=== PATIENT | male | born 1970 | race Caucasian/White ===

== ENCOUNTER 2023-04-28 15:12 | Outpatient (REF) | payer OTHER, SELFPAY | END 2023-04-28 15:13 | disposition home or self-care (01) | LOC: LBN 15:12 | PROVIDERS: PCP Family Medicine; Visit Provider Podiatrist | DX: E11.621 Type 2 diabetes mellitus with foot ulcer (principal); L97.519 Non-pressure chronic ulcer of other part of right foot with unspecified severity | CPT/HCPCS: 87077; 87070; 87075; 87186; 87205 ==

== ENCOUNTER → 2023-05-09 00:29 | Outpatient (CLI) | payer OTHER, SELFPAY ==
--- NOTE | 2023-05-09 07:30 | DI.RAD_ITS ---
Exam(s) XR FOOT RT COMPLETE XR HEEL RT OS CALCIS EXAM: XR FOOT RT COMPLETE and XR heel RT os calcis CLINICAL HISTORY: diabetic foot ulcer,l97.509. TECHNIQUE: 2D digital imaging was performed of the right heel and foot. Five images were obtained. AP, oblique and lateral views were obtained. COMPARISON: No priors for comparison. FINDINGS: BONES: No acute fracture is present. No bony destructive lesion is seen. There are calcaneal spurs pr esent. Dystrophic calcifications are seen on the plantar surface of the foot. JOINTS: No dislocation present. There are degenerative changes seen in the foot particularly at the t arsometatarsal joints. SOFT TISSUE: Normal. IMPRESSION: No radiographic evidence to suggest osteomyelitis. DATA REPOSITORY: RADIATION DOSE DELIVERED:
--- NOTE | 2023-05-09 07:30 | DI.CT_ITS ---
Exam(s) CT ABD AORTA CTA W RUNOFF EXAM: CT ABD AORTA CTA W RUNOFF CLINICAL HISTORY: Ischemic ulcer right heel,I73.9,pvd. TECHNIQUE: Imaging Protocol: Axial CT angiography was performed with multi-slice acquisition and mu lti-planar and/or 3D reconstructions. CONTRAST MATERIAL: Intravenous: Omnipaque 350 Contrast volume:150 mL Oral: No COMPARISON: No exams were available for comparison FINDINGS: Vascular Structures: Abdomen and pelvis: Celiac Jasper/SMA: No evidence of occlusion or significant stenosis. Renal Arteries: No evidence of occlusion or significant stenosis. Aorta: No aneurysm, occlusion or significant stenosis. Atherosclerosis. No evidence of dissection. Iliac Arteries: There is atherosclerosis of the left common iliac artery with narrowing less than 50 percent. There is atherosclerosis of the right common iliac artery with with less than 50 percent n arrowing. No occlusion or stenosis. The left external iliac artery shows no evidence of occlusion, stenosis or dissection. There is atherosclerosis of the right external iliac artery with less than 5 0 percent stenosis. There is atherosclerosis of the proximal right internal iliac artery with occlus ion 3 cm from the origin. There is atherosclerosis of the proximal left internal iliac artery with s evere stenosis proximally. There is reconstitution distally. Lower extremities: Right: Common Femoral: No evidence of occlusion or significant stenosis. Femoral: No evidence of occlusion or significant stenosis. Mild atherosclerosis. Deep Femoral Artery: No evidence of occlusion or significant stenosis. Mild atherosclerosis. Popliteal: No evidence of occlusion or significant stenosis. Infrapopliteal arteries: No evidence of occlusion or significant stenosis. Left: Common Femoral: No evidence of occlusion or significant stenosis. Femoral: No evidence of occlusion or significant stenosis. Mild atherosclerosis. Deep femoral artery: No evidence of occlusion or significant stenosis. Mild atherosclerosis. Popliteal: No evidence ofocclusion or significant stenosis. Knee Trifurcation: No evidence of occlusion or significant stenosis. Anterior tibial: No evidence of occlusion or significant stenosis. Posterior Tibial: No evidence of occlusion or significant stenosis. Peroneal: There is atherosclerosis of the peroneal artery with occlusion distal to the trifurcation. Soft Tissues: Lung bases: There are filling defects in vascular branches in the lower lobes bilaterally medially nascimento spicious for pulmonary emboli. Liver: Normal density. No measurable mass. Gallbladder and biliary tract: Cholelithiasis. No biliary ductal dilatation. Pancreas: Normal density, no abnormal calcifications or inflammatory process. There is a 1.9 x 2.2 cm cyst at the tail of the pancreas. Spleen: Normal. Kidneys: Normal size, contour and axis. No radiodense stones or obstructive uropathy. No masses seen. Adrenal glands: No masses seen. Bladder: Symmetric distention, no gross wall thickening. Bowel: No obstruction or bowel wall thickening. The appendix is unremarkable. Peritoneal cavity: No ascites, collection or mesenteric inflammatory response. No free air. Bones: Within normal limits for the patient's age. IMPRESSION: 1. Atherosclerosis. 2. 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 3. 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 4. Filling defects seen in vessels in the lower lobes of the lungs consistent with pulmonary emboli. A pulmonary embolus CT scan of the chest is requested for further evaluation. 5. 1.9 x 2.2 cm cyst in the tail of the pancreas. MRI is recommended for further evaluation. 6. Findings were discussed with Dr. Raymond Maharaj of the emergency department at 5:20 p.m. on 3. RADIATION DOSE DELIVERED: Total DLP Total DLP DATA REPOSITORY: All CT scans at this facility are submitted to the National Radiology Data Registry (NRDR) Dose Index Registry (DIR) with the [employer] ([employer]). RADIATION OPTIMIZATION: All CT scans at this facility use at least one of these dose optimization te chniques: automated exposure control; mA and/or kV adjustment per patient size (includes targeted exa ms where dose is matched to clinical indication); or iterative reconstruction.
--- NOTE | 2023-05-09 10:42 | DI.RAD_ITS ---
Exam(s) XR HEEL LT OS CALCIS EXAM: XR HEEL LT OS CALCIS CLINICAL HISTORY: pain lt foot,m79.672. TECHNIQUE: 2D digital imaging was performed. Two images were obtained. COMPARISON: No exams were available for comparison FINDINGS: BONES: No acute fracture is present. No bony destructive lesion is seen. There is an enthesophyte at the Achilles insertion site. There is a plantar calcaneal spur. Dystrophic calcifications are seen in the soft tissues on the plantar surface of the foot. JOINTS: No dislocation present. Degenerative changes are seen in the ankle and foot particularly at the tarsometatarsal joints. SOFT TISSUE: Normal. IMPRESSION: No radiographic evidence to suggest osteomyelitis. DATA REPOSITORY: RADIATION DOSE DELIVERED:
[2023-05-09] MEDS: Normal Saline - Diluent 50 ML VIAL 100 ML IJ (11:27)
[2023-05-09] MEDS: Omnipaque 350 MG/ML 500 ML BTL-Imaging package 150 ML IJ (11:28)
[2023-05-09] MEDS: Normal Saline Flush 10 ML SYR IVP (11:29)
--- NOTE | 2023-05-09 17:30 | ED.FU.B_ITS ---
Follow Up Plan: I received a call from Dr. Lee regarding an outpatient study on Mr. Renae that had been ordered by his prep cook. There is concern for possible pulmonary embolus on CTA aorta with runoff. Recommend patient have urgent CTA of chest to evaluate for same. I reached out and spoke directly to Mr. Renae this evening. I told him of the possible findings and the concern and recommended he go to the emergency department to be evaluated whether it was here at [facility] or since he lives in [facility]. If he goes to [facility] I have told him that he may have the provider there called down here to speak to me if there is any questions.
== END ==
PROVIDERS: PCP Family Medicine; Visit Provider Podiatrist
DX: I73.9 Peripheral vascular disease, unspecified (principal); E11.621 Type 2 diabetes mellitus with foot ulcer; M79.672 Pain in left foot
CPT/HCPCS: 75635; 73630; 73650

== ENCOUNTER 2023-05-28 14:52 | Outpatient (REF) | payer OTHER, SELFPAY | END 2023-05-28 14:53 | disposition home or self-care (01) | LOC: LBN 14:52 | PROVIDERS: PCP Family Medicine; Visit Provider Podiatrist | DX: L97.512 Non-pressure chronic ulcer of other part of right foot with fat layer exposed (principal); M86.9 Osteomyelitis, unspecified | CPT/HCPCS: 87070; 87075; 87205 ==

== ENCOUNTER 2023-07-08 14:05 | Outpatient (REF) | payer OTHER, SELFPAY | END 2023-07-08 14:06 | disposition home or self-care (01) | LOC: LBN 14:05 | PROVIDERS: PCP Family Medicine; Visit Provider Podiatrist | DX: L97.519 Non-pressure chronic ulcer of other part of right foot with unspecified severity (principal) | CPT/HCPCS: 87070; 87075; 87205 ==

== ENCOUNTER → 2023-07-29 03:57 | Outpatient (CLI) | payer OTHER, SELFPAY ==
--- NOTE | 2023-07-29 07:00 | DI.RAD_ITS ---
Exam(s) XR FOOT RT COMPLETE EXAM: XR FOOT RT COMPLETE CLINICAL HISTORY: osteomyelitis of foot,m86.9,ulcer,L97.519,L97.512. TECHNIQUE: 2D digital imaging was performed. COMPARISON: CR XR FOOT RT COMPLETE from 05/09/2023 FINDINGS: Compared to 05/09/2023 there is now bandage material overlying a ulcer on the posterior aspect of the heel. Enthesophyte on the posterior aspect of the calcaneus sub adjacent to the ulcer is again note d as is a calcific density within the distal Achilles tendon just above this level. There is no obvi ous radiographic evidence of osteomyelitis realizing that these are not dedicated heel films (dedicat ed heel images contain a Marco axial view which is important for determining osteomyelitis). There i s prominent calcification in the plantar fascia again noted. IMPRESSION: Presence of heel ulcer. No obvious radiographic evidence of osteomyelitis realized limitations of th is conventional 3 view plain film study. Prominent calcification noted in the plantar fascia. Prominent posterior calcaneus enthesophyte. DATA REPOSITORY: RADIATION DOSE DELIVERED:
--- NOTE | 2023-07-29 07:00 | DI.MRI_ITS ---
Exam(s) MR LOWER JOINT RT WO/W EXAM: MR LOWER JOINT RT WO/W CLINICAL HISTORY: Osteomyelitis Calcaneus,lat aspect R ft, M86.9 TECHNIQUE: Multiplanar multisequence MRI was performed without intravenous contrast. COMPARISON: MR MR FOOT RT W/WO CONTRAST from 04/08/2023 CR XR HEEL RT OS CALCIS from 07/29/2023 CR XR FOOT RT COMPLETE from 07/29/2023 FINDINGS: SKIN: There is a bandage over what appears to be a skin ulcer on the posterolateral aspect of the sally l region. There is subcutaneous edema over this region.. BONES/JOINTS: There is again noted a relatively narrow band of subcortical intraosseous signal abnorm ality in the posterolateral aspect of the calcaneus with increased signal on STIR sequence and intrao sseous enhancement but no cortical breakthrough nor confluent hypointense T1 signal at this level. T here is insertional tendinitis signal within the Achilles tendon at this level. No high-grade tear o f the Achilles tendon. No significant fluid in the retrocalcaneal bursa. The more anterior aspect of the calcaneus appears unremarkable. Sub talar and tibiotalar joints appear unremarkable. No abno rmal signal in the talar dome and tibial plafond and malleoli. There is no evidence of para-articul ar ganglion.There is no evidence of osseous tarsal coalition. LIGAMENTS: Anterior talofibular ligament is attenuated. No prominent signal abnormality evident in th e anterolateral gutter. Posterior talofibular ligament is intact. Calcaneal fibular ligament is inta ct. The deltoid ligament is intact. Syndesmotic ligaments appear intact. SINUS TARSI: There is no loss of the normal fat signal in this space. Interosseous ligament is intac t. There is no evidence of sinus tarsi ganglion cyst. MUSCULOTENDINOUS STRUCTURES: Achilles tendon: Distal tendon calcifications and insertional signal abnormality. No high-grade tear . There is a prominent enthesophyte on the posterior calcaneus at the Achilles insertion site. It ag ain exhibits signal abnormality consistent with marrow edema. Plantar fascia: There are multiple calcific densities within the plantar fascia a as seen on recent p will films. The largest of these measures approximately 1.8 x 0.8 by 1.0 cm. Mild signal abnormalit y in the plantar fascia consistent with plantar fasciitis. Also mild signal abnormality in the small inferior calcaneal spur evident at this level. Anterior Extensor tendons: Unremarkable. Medial Tendons: Posterior Tibialis: Unremarkable. No tear or tenosynovitis evident. Flexor Digitorum longus: Unremarkable. No tear or tenosynovitis evident. Flexor Hallicus longus: Unremarkable. No tear or tenosynovitis evident. Lateral Tendons: Peroneus longus: There is some increased signal in the distal tendon on the undersurface of the foot proximal to its insertion on inferior aspect of the medial cuneiform, but no full-thickness tear. Peroneus brevis:Unremarkable. No tear nor tenosynovitis evident. SOFT TISSUES: Unremarkable. OTHER FINDINGS: None. IMPRESSION: 1. Minimal if any significant change when compared to the prior outside MRI scan of 04/08/2023. There is again noted subcortical marrow edema and intraosseous enhancement in the posterolateral calcaneus subjacent to the region of the skin ulcer, without progression when compared to 04/08/2023. Lack of change may imply treated/healing/stable osteomyelitis. Other consideration would be for osseo us stress action related to the adjacent Achilles findings. 2. 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 3. Chronic calcifications in the plantar fascia. Mild plantar fasciitis signal. 4. Other findings as above. DATA REPOSITORY:
--- NOTE | 2023-07-29 07:00 | DI.RAD_ITS ---
Exam(s) XR HEEL RT OS CALCIS EXAM: XR HEEL RT OS CALCIS CLINICAL HISTORY: osteomyelitis rt heel,m86.9,chronic ulcer,L97.519,L97.512. TECHNIQUE: 2D digital imaging was performed. COMPARISON: CR XR HEEL LT OS CALCIS from 05/09/2023 FINDINGS: Two views-lateral and Marco axial views of the calcaneus There is a skin ulcer over the posterior aspect of the calcaneus. There is a prominent enthesophyte at this level at the Achilles tendon insertion site as well as 2 calcific densities within the insert ional aspect of the Achilles tendon. There does not appear to be obvious osteomyelitis in this enthe sophyte. There is no obvious osteomyelitis seen on the axial view. Heavy calcification is noted in the plantar fascia. There is moderate size inferior calcaneal spur n oted. Bone density normal. No osseous lesions. IMPRESSION: Posterior DP heel ulcer. No obvious radiographic evidence of osteomyelitis. Other findings as above. DATA REPOSITORY: RADIATION DOSE DELIVERED:
[2023-07-29] MEDS: Normal Saline Flush 10 ML SYR IVP (09:23)
[2023-07-29] MEDS: Gadoterate meglumine 20 ML SYRINGE 14 ML IVP (09:24)
--- NOTE | 2023-07-29 11:16 | DI.VRAD_ITS ---
PROCEDURE INFORMATION: Exam: MR Right Lower Extremity Joint Without and With Contrast; Ankle Exam date and time: 07/29/2023 9:09 AM Age: 52 years old Clinical indication: Condition or disease; Other: Ulcer lateral heel TECHNIQUE: Imaging protocol: Magnetic resonance imaging of the right lower extremity without and with contrast. Exam focused on the right ankle and heel. Contrast material: DOTAREM; Contrast volume: 14 ml; Contrast route: INTRAVENOUS (IV); COMPARISON: MR FOOT RT W/WO CONTRAST 04/08/2023 (NO REPORT AVAILABLE) FINDINGS: The Achilles tendon is intact and likely contains focal calcification or ossification, particularly involving the medial half of the distal Achilles tendon (e.g., series [id number], image 20) . Marrow edema involves dorsal calcaneal enthesophyte at the Achilles tendon insertion and the immediate adjacent marrow (series 4001, image 13). A narrow band of subcortical marrow edema extends along the lateral margin of the posterior calcaneus (series 9001, image 18). Given similarity of the above findings to previous exam of 04/08/2023, chronic stress reaction is considered the most likely etiology, despite presence of posterolateral cutaneous ulcer of the heel. No progressive osseous destruction indicative of acute osteomyelitis is identified. Incidental note of chronic focal ossification involving the plantar fascia. No additional finding of acute significance is seen. Chronic mild hindfoot muscle edema is again evident. IMPRESSION: 1. Distribution of subcortical marrow edema in the dorsal and dorsolateral calcaneus is without significant change from 04/08/2023, suggesting chronic stress reaction rather than osteomyelitis. 2. Chronic Achilles tendinopathy/enthesopathy. 3. Chronic focal ossification involving plantar fascia. Dictated and Authenticated by: Eladio Chaparro MD. Ordering:LAKIA Bassett MD
== END ==
PROVIDERS: PCP Family Medicine; Visit Provider Podiatrist
DX: M86.9 Osteomyelitis, unspecified (principal); L97.519 Non-pressure chronic ulcer of other part of right foot with unspecified severity; L97.512 Non-pressure chronic ulcer of other part of right foot with fat layer exposed
CPT/HCPCS: 73630; 73650; 73723

== ENCOUNTER 2024-02-17 15:55 | Outpatient (CLI) | payer MEDICAID, SELFPAY ==
--- NOTE | 2024-02-17 15:00 | DI.RAD_ITS ---
Exam(s) XR HEEL RT OS CALCIS EXAM: XR HEEL RT OS CALCIS CLINICAL HISTORY: osteo?, L97.419. TECHNIQUE: 2D digital imaging was performed. Two images were obtained. COMPARISON: CR XR HEEL RT OS CALCIS from 07/29/2023 FINDINGS: BONES: No acute fracture is present. No bony destructive lesion is seen. There is a small plantar ca lcaneal spur. Soft tissue calcifications are seen in the region of the distal Achilles tendon. Ther e is an enthesophyte at the posterior calcaneus. JOINTS: No dislocation present. SOFT TISSUE: There again seen large soft tissue calcifications in the plantar fascial region of the f oot. IMPRESSION: No acute change in appearance of the calcaneus compared to the prior examination. DATA REPOSITORY: RADIATION DOSE DELIVERED:
--- NOTE | 2024-02-17 15:00 | DI.RAD_ITS ---
Exam(s) XR HEEL LT OS CALCIS EXAM: XR HEEL LT OS CALCIS CLINICAL HISTORY: Osteomyelitis? L97.429. TECHNIQUE: 2D digital imaging was performed. Two images were obtained. COMPARISON: CR XR HEEL LT OS CALCIS from 05/09/2023 FINDINGS: BONES: No acute fracture is present. No bony destructive lesion is seen. There is a moderate-sized p lantar calcaneal spur. There is an enthesophyte at the posterior calcaneus. JOINTS: No dislocation present. Mild joint space narrowing and spurring is seen in the anterior ankl e. SOFT TISSUE: There is again seen dense calcification in the region of the plantar fascia. IMPRESSION: No significant change in appearance of the left calcaneus and adjacent soft tissues. DATA REPOSITORY: RADIATION DOSE DELIVERED:
== END 2024-02-17 16:15 ==
LOC: DI 15:55
PROVIDERS: PCP Family Medicine; Visit Provider Podiatrist
DX: L97.421 Non-pressure chronic ulcer of left heel and midfoot limited to breakdown of skin (principal); L97.412 Non-pressure chronic ulcer of right heel and midfoot with fat layer exposed
CPT/HCPCS: 73650

== ENCOUNTER 2024-03-15 15:07 | Outpatient (REF) | payer MEDICAID, SELFPAY | END 2024-03-15 15:08 | disposition home or self-care (01) | LOC: LBN 15:07 | PROVIDERS: PCP Family Medicine; Visit Provider Podiatrist | DX: L97.419 Non-pressure chronic ulcer of right heel and midfoot with unspecified severity (principal); L97.429 Non-pressure chronic ulcer of left heel and midfoot with unspecified severity | CPT/HCPCS: 87077; 87070; 87075; 87186; 87205 ==

== ENCOUNTER 2024-03-15 16:34 | Outpatient (CLI) | payer MEDICAID, SELFPAY ==
[2024-03-15 15:59] LABS: Abs Immature Grans 0.04 10^3/uL (0.0-0.06); Absolute Eosinophil Count 0.14 10^3/uL (0.0-0.7); Absolute Lymphocyte Count 2.25 10^3/uL (1.2-3.4); Absolute Monocyte Count 0.63 10^3/uL (0.1-0.8); Absolute Neutrophil Count 7.54 10^3/uL (1.2-6.7); Basophils % 0.9 %; Eosinophils % 1.3 %; HCT 36.6 % (40.0-50.0); HGB 11.4 g/dL (13.5-17.5); Immature Grans % 0.4 %; MCH 29.8 pg (27.0-33.0); MCHC 31.1 % (32.0-36.0); MCV 96 fL (80-95); MPV 10.9 fL (8.0-11.0); Monocytes % 5.9 %; Neutrophils % 70.5 %; Platelet Count 291 10^3/uL (130-400); RBC 3.82 10^6/uL (4.36-5.78); RDW 14.8 % (11.8-14.1); RDW-SD 51.4 fL
[2024-03-15 16:02] LABS: ESR 28 mm/hr (0-20)
[2024-03-15 16:07] LABS: Hemoglobin A1C 9.1 % (<5.7)
[2024-03-15 16:45] LABS: ALT 27 U/L (16-63); AST 24 U/L (15-37); Albumin 3.1 g/dL (3.4-5.0); Alkaline Phosphatase 80 U/L (46-116); Anion Gap 4.4 mmol/L (3-11); BUN 36 mg/dL (7-18); Bilirubin, Total 0.24 mg/dL (0.2-1.0); CO2 30.6 mmol/L (21.0-32.0); CREATININE 1.3 mg/dL (0.70-1.30); Calcium 9.5 mg/dL (8.5-10.1); Chloride 107 mmol/L (98-107); Estimated GFR 64.88 (mL/min/1.73m2); Glucose 198 mg/dL (74-106); Potassium 5.4 mmol/L (3.5-5.1); Sodium 142 mmol/L (136-145); Total Protein 7.2 g/dL (6.4-8.2)
[2024-03-15 17:02] LABS: C-Reactive Protein < 0.50 mg/dL (<or=0.5)
== END 2024-03-15 16:35 | disposition home or self-care (01) ==
LOC: LBO 16:35
PROVIDERS: PCP Family Medicine; Visit Provider Podiatrist
DX: L97.522 Non-pressure chronic ulcer of other part of left foot with fat layer exposed; Z01.818 Encounter for other preprocedural examination; Z09 Encounter for follow-up examination after completed treatment for conditions other than malignant neoplasm; Z51.89 Encounter for other specified aftercare; M86.9 Osteomyelitis, unspecified; M79.672 Pain in left foot; E11.621 Type 2 diabetes mellitus with foot ulcer; I73.9 Peripheral vascular disease, unspecified; L03.90 Cellulitis, unspecified; L97.512 Non-pressure chronic ulcer of other part of right foot with fat layer exposed; G62.9 Polyneuropathy, unspecified; F17.200 Nicotine dependence, unspecified, uncomplicated
CPT/HCPCS: 36415; 80053; 85652; 83036; 85025; 86140

== ENCOUNTER 2024-03-18 01:09 | Outpatient (CLI) | payer MEDICAID, SELFPAY ==
--- NOTE | 2024-03-18 09:59 | DI.RAD_ITS ---
Exam(s) XR HEEL LT OS CALCIS XR HEEL RT OS CALCIS EXAM: XR HEEL LT OS CALCIS CLINICAL HISTORY: osteomyelitis? L97.429 CHRONIC ULCER HEEL AND MIDFOOT. TECHNIQUE: 2D digital imaging was performed. Two views of both heels. COMPARISON: CR XR HEEL RT OS CALCIS from 03/18/2024 FINDINGS: BONES: No acute fracture is present. No bony destructive lesion is seen. Prominent heel spurs. JOINTS: No dislocation present. No significant change degenerative changes at the talocalcaneal join t. Minimal degenerative changes at talonavicular joints. More dense degenerative changes noted at t he tarsal metatarsal joints. SOFT TISSUE: Heavy calcification in the plantar fascia. IMPRESSION: Prominent heel spurs. Heavy calcification in the plantar fascia. DATA REPOSITORY: RADIATION DOSE DELIVERED:
== END 2024-03-18 01:29 ==
LOC: DI 01:09
PROVIDERS: PCP Family Medicine; Visit Provider Podiatrist
DX: M77.32 Calcaneal spur, left foot (principal); M77.31 Calcaneal spur, right foot
CPT/HCPCS: 73650

== ENCOUNTER 2024-03-22 13:08 | Inpatient (IN) | payer MEDICAID, SELFPAY ==
[2024-03-22] VITALS (8 sets, daily range): BP systolic 107–128; BP diastolic 57–74; PULSE 61–654; RESP 14–18; TEMP 36.2–37.2; O2SAT 98–99; BMI 24.3
--- NOTE | 2024-03-22 | DI.RAD_ITS ---
Exam(s) XR HEEL RT OS CALCIS EXAM: XR HEEL RT OS CALCIS CLINICAL HISTORY: Osteomyelitis?. TECHNIQUE: 2D digital imaging was performed. Three images were obtained. COMPARISON: CR XR HEEL RT OS CALCIS from 03/18/2024 FINDINGS: BONES: No acute fracture is present. No bony destructive lesion is seen. JOINTS: No dislocation present. Arthritic changes are seen in the ankle. SOFT TISSUE: There is a again seen are plantar calcaneal spur. Soft tissue calcifications are seen o n the plantar surface of the foot. IMPRESSION: No radiographic evidence of osteomyelitis. DATA REPOSITORY: RADIATION DOSE DELIVERED:
--- NOTE | 2024-03-22 | DI.RAD_ITS ---
Exam(s) XR HEEL LT OS CALCIS EXAM: XR HEEL LT OS CALCIS CLINICAL HISTORY: Osteomyelitis?. TECHNIQUE: 2D digital imaging was performed. Two images were obtained. COMPARISON: CR XR HEEL LT OS CALCIS from 03/18/2024 FINDINGS: BONES: No acute fracture is present. No bony destructive lesion is seen. Enthesophytes are seen at t he posterior calcaneus. There is a plantar calcaneal spur. JOINTS: No dislocation present. SOFT TISSUE: Dystrophic calcifications are again seen in the soft tissues on the plantar surface of t he foot. There does appear to be a soft tissue defect on the posterior aspect of the heel possibly r eflecting an ulceration. IMPRESSION: No radiographic evidence of osteomyelitis. DATA REPOSITORY: RADIATION DOSE DELIVERED:
--- NOTE | 2024-03-22 08:08 | W.ANESPRE ---
General Info Date of Service Date Performed: 03/22/24 Height: 5 ft 8 in Weight: 72.575 kg Body Mass Index (BMI): 24.3 Surgical Procedure: Operation Date: 03/22/24 09:10 Proposed Procedure Side Surgeon p Heel Excisional Wound Debridement, Possible Bone Biopsy Bilateral Danyelle Lara DPM 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 and Home Medications Allergies Allergy/AdvReac Type Severity Reaction Status Date / Time codeine Allergy rash, Verified 03/22/24 08:37 cortisone Allergy urticaria Verified 03/22/24 08:37 Home Medication ?Medication ?Instructions ?Recorded aspirin 81 mg tablet,delayed 81 mg PO DAILY 04/27/23 release atorvastatin 80 mg tablet 80 mg PO DAILY 04/27/23 blood-glucose sensor ([employer] G7 04/27/23 Sensor device) fenofibrate 160 mg tablet 160 mg PO DAILY 04/27/23 insulin aspart U-100 100 unit/mL See Rx Instructions subcut TID 04/27/23 (3 mL) subcutaneous pen (Novolog FlexPen U-100 Insulin aspart) nutritional supplements pwd PO 05/28/23 apixaban 5 mg tablet (Eliquis) 5 mg PO BID 12/17/23 furosemide 20 mg tablet 20 mg PO DAILY PRN 02/17/24 glucagon 0.5 mg/0.1 mL 1 mg subcut ONCE 02/17/24 subcutaneous auto-injector (Gvoke HypoPen 1-Pack) haloperidol lactate 2 mg/mL oral See Rx Instructions PO .COMPLEX 02/17/24 concentrate loperamide 2 mg capsule 2 mg PO Q4H PRN 02/17/24 mirtazapine 7.5 mg tablet 7.5 mg PO QHS 02/17/24 pantoprazole 40 mg tablet,delayed 40 mg PO DAILY 02/17/24 release potassium chloride 20 mEq 20 meq PO DAILY 02/17/24 tablet,extended release torsemide 20 mg tablet 40 mg PO DAILY 02/17/24 acetaminophen 500 mg capsule 1,000 mg PO TID PRN 02/23/24 albuterol sulfate 90 mcg/actuation 2 puff inhalation Q4H PRN 02/23/24 aerosol inhaler bismuth subsalicylate 525 mg/15 mL 1,050 mg PO DAILY PRN 02/23/24 oral suspension haloperidol lactate 2 mg/mL oral 0.5 mg PO Q6H PRN 02/23/24 concentrate insulin glargine 100 unit/mL (3 38 unit subcut QPM 02/23/24 mL) subcutaneous pen (Basaglar KwikPen U-100 Insulin) insulin glargine 100 unit/mL (3 56 unit subcut QAM 02/23/24 mL) subcutaneous pen (Basaglar KwikPen U-100 Insulin) metoprolol succinate PO 03/22/24 sacubitril-valsartan .ROUTE 03/22/24 Current Visit Medications: Current Medications Generic Name Dose Route Start Last Admin Trade Name Freq PRN Reason Stop Dose Admin Ringer's Solution 1,000 mls @ 30 mls/hr 03/22/24 06:00 IV 04/18/24 23:59 INFUSION BURT Cefazolin Sodium/Dextrose 2 gm in 50 mls @ 100 mls/hr 03/22/24 06:00 Ancef Duplex IVPB 03/22/24 16:00 PREOP UBRT IV Miscellaneous Supplies 1 each 03/22/24 06:00 Iv Access IV 04/18/24 23:59 DIRECTED BURT Sodium Chloride 0 ml 03/22/24 06:00 Normal Saline Flush 10 Ml Syr IV 04/18/24 23:59 PRN PRN Sodium Chloride 0 ml 03/22/24 06:00 Normal Saline 10 Ml Vial IJ 04/18/24 23:59 DIRECTED PRN Sterile Water 0 ml 03/22/24 06:00 Water,Injection,Sterile 10 Ml Vial IJ 04/18/24 23:59 DIRECTED PRN PFSH Active Problems Active Problems: Problem Status Onset Code Atherosclerotic PVD with ulceration Acute I70.209, L98.499 Ischemic ulcer of right heel Acute L97.419 Ischemic ulcer of left heel Acute L97.429 Ulcer of right heel Acute L97.419 Ulcer of left heel Acute L97.429 Heart failure with reduced ejection fraction Acute I50.20 Mitral valve regurgitation Chronic I34.0 Hyperglycemia due to type 2 diabetes mellitus Acute E11.65 Diabetes Chronic E11.9 Smoker Acute F17.200 Peripheral neuropathy Acute G62.9 Chronic ulcer of right foot Acute L97.519 Ulcer of right foot with fat layer exposed Acute L97.512 Cellulitis Acute L03.90 PVD (peripheral vascular disease) Chronic I73.9 Osteomyelitis of right foot Acute M86.9 Pain in left foot Acute M79.672 Diabetic foot ulcer Acute E11.621, L97.509 Snoring Acute R06.83 Nicotine dependence Acute F17.200 Lumbosacral radiculopathy Acute M54.17 Lumbar spondylosis Acute M47.816 Hypertension Chronic I10 Hyperlipidemia Acute E78.5 Diabetic neuropathy Acute E11.40 Depressive disorder Chronic F32.A Atherosclerosis of coronary artery Acute I25.10 Medical History Medical History (Updated 03/22/24 @ 08:39 by Melissa Sabillon RN) Acute kidney injury contrast-induced (12/2023) Hx of pulmonary embolus Protein calorie malnutrition Prolapsed lumbosacral intervertebral disc 04/23/2011 Acute MD x3 Surgical History Surgical History Hx of cataract surgery History of carpal tunnel release H/O heart artery stent x 9 History of spinal fusion x3 Tobacco Smoking/Tobacco Use Status: Current every day Tobacco Type: cigarettes Alcohol Alcohol Intake: never Substance Use Substance use: Never Substance use type: does not use Vital Signs and Lab Results Vital Signs Most Recent Vital Signs in EMR: Temp Pulse Resp BP Pulse Ox 36.2 C L 654 H 17 116/72 99 03/22/24 08:25 03/22/24 08:25 03/22/24 08:25 03/22/24 08:25 03/22/24 08:25 Lab Results Blood Type / Crossmatch: No Data to Display Complete Blood Count: White Blood Count 10.70 10^3/uL (4.4-10.8) 03/15/24 15:40 Red Blood Count 3.82 10^6/uL (4.36-5.78) L 03/15/24 15:40 Hemoglobin 11.4 g/dL (13.5-17.5) L 03/15/24 15:40 Hematocrit 36.6 % (40.0-50.0) L 03/15/24 15:40 Platelet Count 291 10^3/uL (130-400) 03/15/24 15:40 Complete Metabolic Panel: Sodium 142 mmol/L (136-145) 03/15/24 15:40 Potassium 5.4 mmol/L (3.5-5.1) H 03/15/24 15:40 Chloride 107 mmol/L (98-107) 03/15/24 15:40 Carbon Dioxide 30.6 mmol/L (21.0-32.0) 03/15/24 15:40 BUN 36 mg/dL (7-18) H 03/15/24 15:40 Creatinine 1.3 mg/dL (0.70-1.30) 03/15/24 15:40 Est GFR (CKD-EPI 2020) 64.88 (mL/min/1.73m2) 03/15/24 15:40 Calcium 9.5 mg/dL (8.5-10.1) 03/15/24 15:40 Albumin 3.1 g/dL (3.4-5.0) L 03/15/24 15:40 Glucose 198 mg/dL (74-106) H 03/15/24 15:40 Hemoglobin A1c 9.1 % (<5.7) H 03/15/24 15:40 C-Reactive Protein < 0.50 mg/dL (<or=0.5) 03/15/24 15:40 Liver Function Panel: Alanine Aminotransferase (ALT/SGPT) 27 U/L (16-63) 03/15/24 15:40 Aspartate Amino Transf (AST/SGOT) 24 U/L (15-37) 03/15/24 15:40 Coagulation Panel: No Data to Display Cardiac Panel: No Data to Display Arterial Blood Gas: No Data to Display Venous Blood Gas: No Data to Display Pancreas Panel: No Data to Display Thyroid Panel: No Data to Display Infectious Disease: No Data to Display Blood Cultures: No Data to Display Toxicology Panel: No Data to Display Imaging and Studies Imaging and Studies Study information below may be from another EMR and interpreted by another provider. Please see original notes in EMR for more complete details. Echocardiogram Summary: 12/10/2023: EF 34%, RV normal size, LA severe dilation, Moderate to Severe MR, Mild to Mod TR, PASP 43, MR worsened, other findings similar to previous echo. CT Summary: 05/09/2023: IMPRESSION: 1. Atherosclerosis. 2. 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 3. 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 4. Filling defects seen in vessels in the lower lobes of the lungs consistent with pulmonary emboli. A pulmonary embolus CT scan of the chest is requested for further evaluation. 5. 1.9 x 2.2 cm cyst in the tail of the pancreas. MRI is recommended for further evaluation. 6. Findings were discussed with Dr. Raymond Maharaj of the emergency department at 5:20 p.m. on 05/09/2023. Anesthesia Assessment and Plan Anesthesia History Personal History: No History of Anesthesia Complications Family History: No Family History of Anesthesia Complications Exercise Tolerance Exercise Tolerance: Metabolic Equivalents>4 Pertinent Negatives Pertinent Negatives: No Symptoms of GERD Cardiac & Pulmonary Exam Cardiac Exam: Normal S1/S2 Heart Sounds Pulmonary Exam: Clear Bilateral Breath Sounds Implantable Cardiac Device Does patient have a Pacemaker or an ICD?: No Airway Exam Known Difficult Airway: No Mallampati Class: 1 Mouth Opening: Normal (> 3cm) Thyromental Distance: Greater than 3 cm Neck Range of Motion: Full ROM Neck Circumference: Normal Teeth Condition: Edentulous ASA Classification ASA Score: ASA 3 Emergency Case?: No NPO Status NPO Status: NPO Clears >2 hours, Solids >8 hours Anesthesia Plan Resuscitation Status: Full Code Anesthesia Technique: General Anesthesia Airway Planned: Natural Airway Monitors Used: Standard Monitors
[2024-03-22] MEDS: Lactated Ringers 1,000 ML 30 ML IV (09:18)
[2024-03-22] MEDS: ceFAZolin 2 GM/50 ML BAG IVPB (09:26)
[2024-03-22] MEDS: Lidocaine 1% Pres-Free 30 ML VIAL (10:04)
--- NOTE | 2024-03-22 10:42 | W.ANESPOSTOP ---
Postoperative Evaluation Date, Time and Location Date Performed: 03/22/24 Time Performed: 10:47 Patient Location: Day Surgery Unit Vital Signs Most Recent Imported Vital Signs: Most Recent Vital Signs Temp Pulse Resp BP Pulse Ox 36.6 C 65 17 124/69 99 03/22/24 10:33 03/22/24 10:33 03/22/24 10:33 03/22/24 10:33 03/22/24 10:33 Pain Score Most Recent Pain Score: Most Recent Pain Score Pain Level 8 03/22/24 10:33 Assessment Mental Status: Awake (Alert & Oriented to Patient Baseline) Airway and Respiratory Function: Patent airway with normal (patient baseline) respiratory exam Cardiovascular Function: Hemodynamically Stable Hydration Status: Adequately Hydrated Nausea & Vomiting: No Nausea or Vomiting Pain: Pain is tolerable per patient (No surgical site pain, pain is his baseline 01/16 which requires no pain medicine per patient. ) Peripheral Nerve Block: Patient did not receive a nerve block
--- NOTE | 2024-03-22 11:09 | W.PM.OP ---
Date of service: 03/22/24 Time of Service: 11:10 Operative Note Operative Note DATE OF PROCEDURE: 03/22/24 PRE-OP DIAGNOSIS: Full-thickness, ischemic ulcer, left heel Full-thickness ulcer, right heel POST-OP DIAGNOSIS: same (Infected ulcer, left heel; ) PROCEDURE: Excisional wound debridement bilateral heels SURGEON: Danyelle Lara ANESTHESIA TYPE: Local By Surgeon (20 mL 1% lidocaine plain preoperatively) and MAC Refer to Anesthesia Record ESTIMATED BLOOD LOSS: 2 PATHOLOGY: none sent COMPLICATIONS: None Patient's condition: stable Indications: This is a 53-year-old diabetic male patient with bilateral heel ulcers. Patient has been under my care for the right heel ulcer since 04/28/2023. He has received a course of antibiotics the wound was progressing to heal however has not healed enough yet. Patient was seen in office on 03/15/2024 and it was determined to perform an OR wound debridement at this time for the right heel. With respect to the left heel, the patient presented in office on 02/17/2024 with a left heel ulcer. At that time he was provided a referral for [facility] vascular, and received local wound care. He was then seen in office on 03/15/2024 with a larger heel ulceration with soft tissue necrosis and the decision was made for OR excisional wound debridement. I discussed the risks, benefits and possible complications of the procedure with the patient in detail. I discussed the risk for need for further surgery or amputation, need for prolonged antibiotics, risk for limb loss with the understanding that patient has not received any vascular intervention as of yet. Patient understood all risks, benefits and possible complications. No guarantees or warranties were made or implied. Patient elected to proceed with the surgery. Findings: Full-thickness ulceration noted to the right heel. Predebridement measurements are 2.4 x 1.5 x 0.3 cm. Postdebridement measurements are 2.5 x 1.8 x 0.4 cm. The wound bed is 100% necrotic predebridement. Upon debridement, healthy granulation tissue noted slightly macerated tissue noted at the borders., There is no periwound erythema, no edema, no proximal streaking or undermining. No crepitus, no fluctuance, no probe to bone or capsule. Unstageable ulcer noted to the left heel plantar posteriorly. Predebridement measurements are 4.0 x 5.5 cm. Postdebridement measurements of 5.5 x 4.0 with 3 cm deep tunneling in the plantar direction. The wound bed is 100% necrotic predebridement, partially viable fat pad noted post debridement, the ulcer does extend to the level of the Achilles tendon insertion at this time, no tunneling or undermining noted in the superior direction towards the Achilles tendon. There is tunneling noted in the plantar direction which is approximately 3 cm deep and about 3 cm wide. There is heavy malodor noted upon debridement, there is no crepitus, no fluctuance noted. The wound did appear boggy. No periwound erythema noted there is edema noted to the entire left foot. Procedure Description: Patient was identified in preop holding. Bilateral extremity were marked. Consent form signed reviewed and in chart. No contraindications noted to the procedure at this time. Patient was then brought to the operating room placed on the operating table in supine position. After induction of anesthesia, 10 mL of 1% lidocaine plain was injected maureen ulcer bilaterally. Bilateral lower extremity were then scrubbed, prepped and draped in the usual aseptic manner. Attention was directed to the right heel first, where using the Versajet all necrotic, nonviable tissue was debrided including subcutaneous tissue to a healthy bleeding base. Dressings were then applied with Xeroform gauze, 4 x 4, Kerlix and a very lightly applied Mike wrap. Attention was then directed to the left lower extremity where necrotic tissue was noted to the left heel plantar posteriorly. Using a Versajet necrotic tissue was debrided and malodor was noted immediately. Versajet was continued to be used and further necrotic tissue was then noted and debrided. Next, a rongeur and a # 15 gisselle was used to remove all necrotic tissue nonviable tissue, this was then passed from the operative field. Soft tissue was also sent for cultures from the left heel. Tunneling was noted in the plantar direction. After removal of the all necrotic, nonviable tissue at the area was irrigated with copious months of sterile saline. Iodoform packing gauze was applied to the tunneling. Dressings were then applied with Xeroform gauze, 4 x 4, Kerlix and a gently applied Mike wrap without any compression. Patient was transferred to same-day for further monitoring. I discussed the above findings with the patient in detail. I recommend transfer to a larger hospital for more comprehensive care for this patient. He will require IV antibiotics. He will require vascular intervention for the left heel. He may also benefit from vascular intervention to the right heel. Patient is at risk for limb loss. I have called [facility] transfer line to help coordinate transfer to [facility]. If this is not possible, I would recommend transfer to [facility]. Patient may require inpatient admission today at an [facility] for IV antibiotics should a transfer not be possible. I have discussed this with the internal medicine team.
[2024-03-22 13:07] LABS: ESR 24 mm/hr (0-20)
[2024-03-22 13:10] LABS: Abs Immature Grans 0.05 10^3/uL (0.0-0.06); Absolute Basophil Count 0.09 10^3/uL (0.0-0.2); Absolute Eosinophil Count 0.07 10^3/uL (0.0-0.7); Absolute Lymphocyte Count 1.05 10^3/uL (1.2-3.4); Absolute Monocyte Count 0.27 10^3/uL (0.1-0.8); Absolute Neutrophil Count 9.39 10^3/uL (1.2-6.7); Basophils % 0.8 %; Eosinophils % 0.6 %; HCT 37.1 % (40.0-50.0); HGB 11.5 g/dL (13.5-17.5); Immature Grans % 0.5 %; Lymphocytes % 9.6 %; MCH 29.6 pg (27.0-33.0); MCV 95 fL (80-95); MPV 10.6 fL (8.0-11.0); Monocytes % 2.5 %; Platelet Count 287 10^3/uL (130-400); RBC 3.89 10^6/uL (4.36-5.78); RDW 14.8 % (11.8-14.1); RDW-SD 51.8 fL; WBC 10.92 10^3/uL (4.4-10.8)
[2024-03-22 13:22] LABS: ALT 20 U/L (16-63); AST 19 U/L (15-37); Albumin 2.8 g/dL (3.4-5.0); Alkaline Phosphatase 73 U/L (46-116); Anion Gap 5.1 mmol/L (3-11); BUN 35 mg/dL (7-18); CO2 28.9 mmol/L (21.0-32.0); CREATININE 1.4 mg/dL (0.70-1.30); Chloride 109 mmol/L (98-107); Estimated GFR 59.36 (mL/min/1.73m2); Glucose 85 mg/dL (74-106); Potassium 5.1 mmol/L (3.5-5.1); Sodium 143 mmol/L (136-145); Total Protein 7.2 g/dL (6.4-8.2)
[2024-03-22 13:24] LABS: C-Reactive Protein < 0.50 mg/dL (<or=0.5)
--- NOTE | 2024-03-22 14:13 | W.PM.HP.N ---
Date of service: 03/22/24 Time of Service: 14:13 Assessment and Plan Assessment and plan (1) Ischemic ulcer of left heel: Status: Acute Assessment and plan: In setting of dense neuropathy from type 2 DM and peripheral vascular disease. S/p debridement 03/[address] Lara from podiatry. Per Marco, needs vascular surgery for definitive care. Concern for infection, on pip/tazo and vanco per Podiatry recommendations. Patient is accepted at [facility] vascular surgery Dr. Aguilar pending bed availability (2) Ischemic ulcer of right heel: Status: Acute Assessment and plan: S/p debridement 03/[address] Lara from podiatry. As above. (3) Nicotine dependence: Status: Acute Assessment and plan: He would like to quit. TD franklin, consider verenicline on discharge as this has helped in past. (4) Heart failure with reduced ejection fraction: Status: Acute Assessment and plan: No signs/symptoms of active CHF. He is on metoprolol and ARNI. Not on spironolactone or SGLT2i at this point. Continue outpatient medicaiton. (5) Atherosclerotic PVD with ulceration: Status: Acute Assessment and plan: continue ASA, high intensity statin, smoking cesstaion. Surgical evaluation as above. Holding apixaban pending surgery. (6) Diabetes: Status: Chronic Assessment and plan: Poorly controlled detention, last A1c 8.9% per report. Continue basal/bolus insulin, consider additional options at discharge. (7) Chronic kidney disease, stage 3a: Status: Acute Assessment and plan: at baseline, monitr (8) Protein calorie malnutrition: Assessment and plan: continue supplementation (9) Atherosclerosis of coronary artery: Status: Acute Assessment and plan: h/o HI x 3. On ASA/statin No recent chest pain. (10) DVT prophylaxis: Status: Acute Assessment and plan: SCDs pending surgeyr. History of Present Illness History of Present Illness Chief Complaint: heel ulcers Narrative: 53 yo M with type 2 DM with neuropathy, smoking, HFrEF, and peripheral arterial disease who was taken to the OR for debridement of his chronic heel wounds this morning. Dr. Lara performed debridement, and was concerned for poor circulation and infection and asked to have the patient admitted for IV antibiotics pending transfer to vascular surgery for definitive care. He feels fine. He doesn't have sensation from his thighs down. Right sided ulcer has been there for a year, left is only in the last couple weeks. He has not had fever/chills, n/v, malaise. No chest pain, SOB, MAJOR, or dizziness. Review of Systems All systems reviewed & are unremarkable except as noted in HPI and below PFSH All Active Problems (Updated 03/22/24 @ 14:20 by Ernst Ricci) Chronic kidney disease, stage 3a (Acute) DVT prophylaxis (Acute) Atherosclerotic PVD with ulceration (Acute) Ischemic ulcer of right heel (Acute) Ischemic ulcer of left heel (Acute) Ulcer of right heel (Acute) Ulcer of left heel (Acute) Heart failure with reduced ejection fraction (Acute) 35%; worsened moderate to severe regurg; mitral regurg worsened 12/2023 ([facility]) Mitral valve regurgitation (Chronic) Hyperglycemia due to type 2 diabetes mellitus (Acute) Diabetes (Chronic) 08/07/05 Smoker (Acute) Peripheral neuropathy (Acute) Chronic ulcer of right foot (Acute) Ulcer of right foot with fat layer exposed (Acute) Cellulitis (Acute) PVD (peripheral vascular disease) (Chronic) Osteomyelitis of right foot (Acute) Pain in left foot (Acute) Diabetic foot ulcer (Acute) Snoring (Acute) Nicotine dependence (Acute) Lumbosacral radiculopathy (Acute) Lumbar spondylosis (Acute) Hypertension (Chronic) Hyperlipidemia (Acute) Diabetic neuropathy (Acute) Depressive disorder (Chronic) Atherosclerosis of coronary artery (Acute) Medical History Acute kidney injury contrast-induced (12/2023) Hx of pulmonary embolus Protein calorie malnutrition Prolapsed lumbosacral intervertebral disc 04/23/2011 Acute [place] x3 Surgical History Hx of cataract surgery History of carpal tunnel release H/O heart artery stent x 9, last in 2017 History of spinal fusion x3 Family History (Updated 03/22/24 @ 14:41 by Ernst Ricci) Sister Diabetes Mother Diabetes Social History (Updated 03/22/24 @ 14:42 by Ernst Ricci) Smoking/Tobacco Use Status: Current every day Tobacco Type: cigarettes Smoking risk assessment performed?: Yes Alcohol Intake: never Drug use: Never Substance use type: does not use Details: Patient smoked 3 cigarettes today. Housing: apartment Do you feel safe at home: Yes Do you feel safe in your relationship?: Yes Additional Social history: Lives with in [place]. Disabled. [place] . 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 and Home Medications Allergies Allergy/AdvReac Type Severity Reaction Status Date / Time codeine Allergy rash, Verified 03/22/24 08:37 cortisone Allergy urticaria Verified 03/22/24 08:37 Home Medications ?Medication ?Instructions ?Recorded ?Confirmed ?Type aspirin 81 mg tablet,delayed 81 mg PO DAILY 04/27/23 03/22/24 History release atorvastatin 80 mg tablet 80 mg PO DAILY 04/27/23 03/22/24 History blood-glucose sensor (Dexcom G7 04/27/23 03/22/24 History Sensor device) fenofibrate 160 mg tablet 160 mg PO DAILY 04/27/23 03/22/24 History insulin aspart U-100 100 unit/mL See Rx Instructions subcut TID 04/27/23 03/22/24 History (3 mL) subcutaneous pen (Novolog FlexPen U-100 Insulin aspart) nutritional supplements pwd PO 05/28/23 03/15/24 History apixaban 5 mg tablet (Eliquis) 5 mg PO BID 12/17/23 03/22/24 History furosemide 20 mg tablet 20 mg PO DAILY PRN 02/17/24 03/22/24 History glucagon 0.5 mg/0.1 mL 1 mg subcut ONCE 02/17/24 03/22/24 History subcutaneous auto-injector (Gvoke HypoPen 1-Pack) haloperidol lactate 2 mg/mL oral See Rx Instructions PO .COMPLEX 02/17/24 03/22/24 History concentrate loperamide 2 mg capsule 2 mg PO Q4H PRN 02/17/24 03/22/24 History mirtazapine 7.5 mg tablet 7.5 mg PO QHS 02/17/24 03/22/24 History pantoprazole 40 mg tablet,delayed 40 mg PO DAILY 02/17/24 03/22/24 History release potassium chloride 20 mEq 20 meq PO DAILY 02/17/24 03/22/24 History tablet,extended release torsemide 20 mg tablet 40 mg PO DAILY 02/17/24 03/22/24 History acetaminophen 500 mg capsule 1,000 mg PO TID PRN 02/23/24 03/22/24 History albuterol sulfate 90 mcg/actuation 2 puff inhalation Q4H PRN 02/23/24 03/22/24 History aerosol inhaler bismuth subsalicylate 525 mg/15 mL 1,050 mg PO DAILY PRN 02/23/24 03/22/24 History oral suspension haloperidol lactate 2 mg/mL oral 0.5 mg PO Q6H PRN 02/23/24 03/22/24 History concentrate insulin glargine 100 unit/mL (3 38 unit subcut QPM 02/23/24 03/22/24 History mL) subcutaneous pen (Basaglar KwikPen U-100 Insulin) insulin glargine 100 unit/mL (3 56 unit subcut QAM 02/23/24 03/22/24 History mL) subcutaneous pen (Basaglar KwikPen U-100 Insulin) metoprolol succinate PO 03/22/24 History sacubitril-valsartan .ROUTE 03/22/24 History Exam Narrative Exam Narrative: GEN: Alert and oriented x 4, pleasant and cooperative, gives linear history. No acute distress at rest. HEENT: Head atraumatic. Conjunctiva clear, no icterus. PEERL, EOMI. no rhinorrhea. MMM, OP benign. Neck is supple with no masses or lymphadenopathy, trachea midline LUNGS: CTAB with normal effort CV: RRR with no murmurs, gallops, or rubs. ABD: active bowel sounds, soft, nontender and nondistended. No masses. EXT: no cyanosis, clubbing. Trace to 1+ edema sierra shins down. Toes are warm with cap refill < 2 seconds MSK: No joint redness or swelling NEURO: CN 2-12 grossly intact. Normal movement of 4 extremities. Normal speech and coordination. No tremor SKIN: No rashes. Two open wounds on sierra heels. I did see left heal wound with deep packing. I did not see exudate or redness spreading from the wound. Right heal wound has clean bandage, not taken down. PSYCH: normal mood and affect Results Labs 03/22/24 12:58 03/22/24 12:58 Labs: Laboratory Results - last 24 hr 03/22/24 03/22/24 03/22/24 12:58 12:58 12:58 WBC 10.92 H RBC 3.89 L Hgb 11.5 L Hct 37.1 L MCV 95 MCH 29.6 MCHC 31.0 L RDW 14.8 H Plt Count 287 MPV 10.6 Immature Gran % 0.5 Neutrophils % 86.0 Lymphocytes % 9.6 Monocytes % 2.5 Eosinophils % 0.6 Basophils % 0.8 Nucleated RBC % 0.0 Absolute Neutrophils 9.39 H Absolute Lymphocytes 1.05 L Absolute Monocytes 0.27 Absolute Eosinophils 0.07 Absolute Basophils 0.09 ESR 24 H Sodium 143 Cancelled Potassium 5.1 Cancelled Chloride 109 H Carbon Dioxide Anion Gap BUN Creatinine Est GFR (CKD-EPI 2020) Glucose Calcium Total Bilirubin AST ALT Alkaline Phosphatase C-Reactive Protein Total Protein Albumin 03/22/24 03/22/24 03/22/24 12:58 12:58 12:58 WBC RBC Hgb Hct MCV MCH MCHC RDW Plt Count MPV Immature Gran % Neutrophils % Lymphocytes % Monocytes % Eosinophils % Basophils % Nucleated RBC % Absolute Neutrophils Absolute Lymphocytes Absolute Monocytes Absolute Eosinophils Absolute Basophils ESR Sodium Potassium Chloride Cancelled Carbon Dioxide 28.9 Cancelled Anion Gap 5.1 Cancelled BUN 35 H Creatinine Est GFR (CKD-EPI 2020) Glucose Calcium Total Bilirubin AST ALT Alkaline Phosphatase C-Reactive Protein Total Protein Albumin 03/22/24 03/22/24 03/22/24 12:58 12:58 12:58 WBC RBC Hgb Hct MCV MCH MCHC RDW Plt Count MPV Immature Gran % Neutrophils % Lymphocytes % Monocytes % Eosinophils % Basophils % Nucleated RBC % Absolute Neutrophils Absolute Lymphocytes Absolute Monocytes Absolute Eosinophils Absolute Basophils ESR Sodium Potassium Chloride Carbon Dioxide Anion Gap BUN Cancelled Creatinine 1.4 H Cancelled Est GFR (CKD-EPI 2020) 59.36 Cancelled Glucose 85 Calcium Total Bilirubin AST ALT Alkaline Phosphatase C-Reactive Protein Total Protein Albumin 03/22/24 03/22/24 03/22/24 12:58 12:58 12:58 WBC RBC Hgb Hct MCV MCH MCHC RDW Plt Count MPV Immature Gran % Neutrophils % Lymphocytes % Monocytes % Eosinophils % Basophils % Nucleated RBC % Absolute Neutrophils Absolute Lymphocytes Absolute Monocytes Absolute Eosinophils Absolute Basophils ESR Sodium Potassium Chloride Carbon Dioxide Anion Gap BUN Creatinine Est GFR (CKD-EPI 2020) Glucose Cancelled Calcium 9.0 Cancelled Total Bilirubin 0.20 Cancelled AST 19 ALT Alkaline Phosphatase C-Reactive Protein Total Protein Albumin 03/22/24 03/22/24 03/22/24 12:58 12:58 12:58 WBC RBC Hgb Hct MCV MCH MCHC RDW Plt Count MPV Immature Gran % Neutrophils % Lymphocytes % Monocytes % Eosinophils % Basophils % Nucleated RBC % Absolute Neutrophils Absolute Lymphocytes Absolute Monocytes Absolute Eosinophils Absolute Basophils ESR Sodium Potassium Chloride Carbon Dioxide Anion Gap BUN Creatinine Est GFR (CKD-EPI 2020) Glucose Calcium Total Bilirubin AST Cancelled ALT 20 Cancelled Alkaline Phosphatase 73 Cancelled C-Reactive Protein < 0.50 Total Protein 7.2 Albumin 03/22/24 03/22/24 12:58 12:58 WBC RBC Hgb Hct MCV MCH MCHC RDW Plt Count MPV Immature Gran % Neutrophils % Lymphocytes % Monocytes % Eosinophils % Basophils % Nucleated RBC % Absolute Neutrophils Absolute Lymphocytes Absolute Monocytes Absolute Eosinophils Absolute Basophils ESR Sodium Potassium Chloride Carbon Dioxide Anion Gap BUN Creatinine Est GFR (CKD-EPI 2020) Glucose Calcium Total Bilirubin AST ALT Alkaline Phosphatase C-Reactive Protein Total Protein Cancelled Albumin 2.8 L Cancelled Last Vital Signs Temp 37 C 03/22/24 13:48 Pulse 61 03/22/24 13:48 Resp 14 03/22/24 13:48 BP 128/72 03/22/24 13:48 Pulse Ox 98 03/22/24 13:48 Time Spent Time spent with Patient: 55-74 minutes Time was spent: preparing to see the patient(eg.review tests), obtaining and/or reviewing separately otained hiistory, ordering medications,tests, procedures, referring, communicating with other health youth care professional, indepentently interpreting results, counseling the patient and care coordination
[2024-03-22] MEDS: PIPERACILLIN/TAZO 4.5 GM in Normal Saline 100 ML IVPB (15:41)
[2024-03-22] MEDS: Normal Saline Flush 10 ML SYR IV (15:45)
[2024-03-22] MEDS: VANCOMYCIN/WATER (PEG) 1.25 GM/250 ML BAG IV (16:22)
--- NOTE | 2024-03-22 17:26 | DSE_ITS ---
Date of service: 03/22/24 Time of Service: 17:26 DS: Diagnosis Discharge Diagnosis (1) Ischemic ulcer of left heel: Status: Acute (2) Ischemic ulcer of right heel: Status: Acute (3) Nicotine dependence: Status: Acute (4) Heart failure with reduced ejection fraction: Status: Acute (5) Atherosclerotic PVD with ulceration: Status: Acute (6) Diabetes: Status: Chronic (7) Chronic kidney disease, stage 3a: Status: Acute (8) Protein calorie malnutrition: (9) Atherosclerosis of coronary artery: Status: Acute (10) DVT prophylaxis: Status: Acute Discharge Plan Disposition Patient Disposition: Transfer-Acute Inpatient Care Specific Acute Inpt Facility: [facility] Condition: Good Discharge Details Reason For Visit: infected heel ulcers, peripheral arterial disease Admit Date/Time: 03/22/24 13:08 Admit Provider: Ernst Ricci Attending Provider: Danyelle Lara [facility] Course: 53 yo M with type 2 DM with neuropathy, smoking, HFrEF, and peripheral arterial disease who was taken to the OR for debridement of his chronic heel wounds this morning. Dr. Lara performed debridement, and was concerned for poor circulation and infection and asked to have the patient admitted for IV antibiotics pending transfer to vascular surgery for definitive care. He was given a dose of piperacillin/tazobactam and vancomycin prior to transfer. he was accepted later in the same day by Dr. Aguilar at [facility] vascular surgery Home Meds and New Rx's Prescriptions: No Action aspirin 81 mg tablet,delayed release (DR/EC) 81 mg PO DAILY atorvastatin 80 mg tablet 80 mg PO DAILY (DME) Dexcom G7 Sensor Device See Rx Instructions .Route Rx Instructions: As directed fenofibrate 160 mg tablet 160 mg PO DAILY insulin aspart U-100 [Novolog FlexPen U-100 Insulin] 100 unit/mL (3 mL) insulin pen See Rx Instructions subcut TID Rx Instructions: subcutaneously three times a day; nutritional supplements Powder PO Rx Instructions: Placido Eliquis 5 mg tablet 5 mg PO BID furosemide 20 mg tablet 20 mg PO DAILY PRN Gvoke HypoPen 1-Pack 0.5 mg/0.1 mL auto-injector 1 mg subcut ONCE Rx Instructions: as a single dose; may repeat once after 15 minutes if no response haloperidol lactate 2 mg/mL concentrate See Rx Instructions PO .COMPLEX Rx Instructions: orally; dosing not provided by PCP loperamide 2 mg capsule 2 mg PO Q4H PRN Rx Instructions: administer after each loose stool until symptoms controlled; do not exceed 8 mg per 24 hrs mirtazapine 7.5 mg tablet 7.5 mg PO QHS pantoprazole 40 mg tablet,delayed release (DR/EC) 40 mg PO DAILY potassium chloride 20 mEq tablet extended release 20 meq PO DAILY torsemide 20 mg tablet 40 mg PO DAILY insulin glargine [Basaglar KwikPen U-100 Insulin] 100 unit/mL (3 mL) insulin pen 56 unit subcut QAM insulin glargine [Basaglar KwikPen U-100 Insulin] 100 unit/mL (3 mL) insulin pen 38 unit subcut QPM albuterol sulfate 90 mcg/actuation HFA aerosol inhaler 2 puff inhalation Q4H PRN haloperidol lactate 2 mg/mL concentrate 0.5 mg PO Q6H PRN Rx Instructions: 0.25-0.50 ml q6h N/v bismuth subsalicylate 525 mg/15 mL suspension 1,050 mg PO DAILY PRN Rx Instructions: for diarrhea acetaminophen 500 mg capsule 1,000 mg PO TID PRN sacubitril-valsartan [Entresto] .ROUTE Patient Comments: per patient just started for heart valve metoprolol succinate PO Discharge Instructions Activity:: Activity as Tolerated Equipment/Supplies:: No Equipment Needed Diet:: Carb Counting Discharge Orders Discharge Orders: Discharge Order (Routine); Ordered 03/22/24 Ordered By: Ernst Ricci DS: Summary Time Spent with Patient providing and/or coordinating discharge services: Greater than 30 minutes Status at Discharge Functional status at discharge: bed bound Overall status at discharge: patient is not back to baseline Mental Status: mental status grossly normal Speech and Movement: speech and movement normal Mood: congruent mood Affect: normal affect Quality:SDOH Health Related Social Needs: No Data to Display Exam Narrative Exam Narrative: GEN: Alert and oriented x 4, pleasant and cooperative, gives linear history. No acute distress at rest. HEENT: Head atraumatic. Conjunctiva clear, no icterus. PEERL, EOMI. no rhinorrhea. MMM, OP benign. Neck is supple with no masses or lymphadenopathy, trachea midline LUNGS: CTAB with normal effort CV: RRR with no murmurs, gallops, or rubs. ABD: active bowel sounds, soft, nontender and nondistended. No masses. EXT: no cyanosis, clubbing. Trace to 1+ edema sierra shins down. Toes are warm with cap refill < 2 seconds MSK: No joint redness or swelling NEURO: CN 2-12 grossly intact. Normal movement of 4 extremities. Normal speech and coordination. No tremor SKIN: No rashes. Two open wounds on sierra heels. I did see left heal wound with deep packing. I did not see exudate or redness spreading from the wound. Right heal wound has clean bandage, not taken down. PSYCH: normal mood and affect Psych Mental Status: mental status grossly normal Speech and Movement: speech and movement normal Mood: congruent mood Affect: normal affect DS: Data Vitals/I&O Vitals and I&O: Vital Signs Temperature 37.2 C 03/22/24 15:15 Temperature Source Temporal Artery Scan 03/22/24 15:15 Pulse 62 03/22/24 15:15 Pulse Rhythm Regular 03/22/24 13:48 Respiratory Rate 18 03/22/24 15:15 Respiratory Effort Normal, Non-Labored 03/22/24 13:48 Respiratory Depth Normal 03/22/24 13:48 Respiratory Pattern Normal 03/22/24 13:48 Blood Pressure 107/57 L 03/22/24 15:15 Blood Pressure Mean 90 03/22/24 13:29 Blood Pressure Position Supine 03/22/24 13:29 Pulse Oximetry 98 03/22/24 15:15 Oxygen Delivery Method Room Air 03/22/24 15:15 Oxygen Flow Rate 0 03/22/24 15:15 Pain Level 8 03/22/24 15:15 Intake & Output 03/21/24 03/22/24 03/22/24 23:59 11:59 23:59 Intake Total 390 / 390 Balance 390 / 390 Weight 74.6 kg 76.113 kg Intake: IV 150 / 150 Oral 240 / 240 Other: Emesis Description None Data Completed and Pending Labs on day of discharge: Labs from last 24 hours 03/22/24 03/22/24 03/22/24 12:58 12:58 12:58 WBC RBC Hgb Hct MCV MCH MCHC RDW Plt Count MPV Immature Gran % Neutrophils % Lymphocytes % Monocytes % Eosinophils % Basophils % Nucleated RBC % Absolute Neutrophils Absolute Lymphocytes Absolute Monocytes Absolute Eosinophils Absolute Basophils ESR Sodium Potassium Chloride Carbon Dioxide Anion Gap BUN Creatinine Est GFR (CKD-EPI 2020) Glucose Calcium Total Bilirubin AST ALT Alkaline Phosphatase Cancelled C-Reactive Protein < 0.50 Total Protein Cancelled 7.2 Albumin Cancelled 2.8 L 03/22/24 03/22/24 03/22/24 12:58 12:58 12:58 WBC RBC Hgb Hct MCV MCH MCHC RDW Plt Count MPV Immature Gran % Neutrophils % Lymphocytes % Monocytes % Eosinophils % Basophils % Nucleated RBC % Absolute Neutrophils Absolute Lymphocytes Absolute Monocytes Absolute Eosinophils Absolute Basophils ESR Sodium Potassium Chloride Carbon Dioxide Anion Gap BUN Creatinine Est GFR (CKD-EPI 2020) Glucose Calcium Total Bilirubin Cancelled AST Cancelled 19 ALT Cancelled 20 Alkaline Phosphatase 73 C-Reactive Protein Total Protein Albumin 03/22/24 03/22/24 03/22/24 12:58 12:58 12:58 WBC RBC Hgb Hct MCV MCH MCHC RDW Plt Count MPV Immature Gran % Neutrophils % Lymphocytes % Monocytes % Eosinophils % Basophils % Nucleated RBC % Absolute Neutrophils Absolute Lymphocytes Absolute Monocytes Absolute Eosinophils Absolute Basophils ESR Sodium Potassium Chloride Carbon Dioxide Anion Gap BUN Creatinine Est GFR (CKDEPI 2020) Cancelled Glucose Cancelled 85 Calcium Cancelled 9.0 Total Bilirubin 0.20 AST ALT Alkaline Phosphatase C-Reactive Protein Total Protein Albumin 03/22/24 03/22/24 03/22/24 12:58 12:58 12:58 WBC RBC Hgb Hct MCV MCH MCHC RDW Plt Count MPV Immature Gran % Neutrophils % Lymphocytes % Monocytes % Eosinophils % Basophils % Nucleated RBC % Absolute Neutrophils Absolute Lymphocytes Absolute Monocytes Absolute Eosinophils Absolute Basophils ESR Sodium Potassium Chloride Carbon Dioxide Anion Gap Cancelled BUN Cancelled 35 H Creatinine Cancelled 1.4 H Est GFR (CKD-EPI 2020) 59.36 Glucose Calcium Total Bilirubin AST ALT Alkaline Phosphatase C-Reactive Protein Total Protein Albumin 03/22/24 03/22/24 03/22/24 12:58 12:58 12:58 WBC RBC Hgb Hct MCV MCH MCHC RDW Plt Count MPV Immature Gran % Neutrophils % Lymphocytes % Monocytes % Eosinophils % Basophils % Nucleated RBC % Absolute Neutrophils Absolute Lymphocytes Absolute Monocytes Absolute Eosinophils Absolute Basophils ESR Sodium Potassium Cancelled Chloride Cancelled 109 H Carbon Dioxide Cancelled 28.9 Anion Gap 5.1 BUN Creatinine Est GFR (CKD-EPI 2020) Glucose Calcium Total Bilirubin AST ALT Alkaline Phosphatase C-Reactive Protein Total Protein Albumin 03/22/24 03/22/24 12:58 12:58 WBC 10.92 H RBC 3.89 L Hgb 11.5 L Hct 37.1 L MCV 95 MCH 29.6 MCHC 31.0 L RDW 14.8 H Plt Count 287 MPV 10.6 Immature Gran % 0.5 Neutrophils % 86.0 Lymphocytes % 9.6 Monocytes % 2.5 Eosinophils % 0.6 Basophils % 0.8 Nucleated RBC % 0.0 Absolute Neutrophils 9.39 H Absolute Lymphocytes 1.05 L Absolute Monocytes 0.27 Absolute Eosinophils 0.07 Absolute Basophils 0.09 ESR 24 H Sodium Cancelled 143 Potassium 5.1 Chloride Carbon Dioxide Anion Gap BUN Creatinine Est GFR (CKD-EPI 2020) Glucose Calcium Total Bilirubin AST ALT Alkaline Phosphatase C-Reactive Protein Total Protein Albumin 03/22/24 10:23 Heel - Left Surgical Culture - Pending 03/22/24 10:23 Heel - Left Anaerobic Culture - Pending Preliminary micro results at discharge 03/22/24 10:23 Surgical Culture - Pending Heel - Left 03/22/24 10:23 Anaerobic [facility] - [facility] Active Problems (Updated 03/22/24 @ 14:20 by Ernst Ricci) Chronic kidney disease, stage 3a (Acute) DVT prophylaxis (Acute) Atherosclerotic PVD with ulceration (Acute) Ischemic ulcer of right heel (Acute) Ischemic ulcer of left heel (Acute) Ulcer of right heel (Acute) Ulcer of left heel (Acute) Heart failure with reduced ejection fraction (Acute) 35%; worsened moderate to severe regurg; mitral regurg worsened 12/2023 ([facility]) Mitral valve regurgitation (Chronic) Hyperglycemia due to type 2 diabetes mellitus (Acute) Diabetes (Chronic) 08/07/05 Smoker (Acute) Peripheral neuropathy (Acute) Chronic ulcer of right foot (Acute) Ulcer of right foot with fat layer exposed (Acute) Cellulitis (Acute) PVD (peripheral vascular disease) (Chronic) Osteomyelitis of right foot (Acute) Pain in left foot (Acute) Diabetic foot ulcer (Acute) Snoring (Acute) Nicotine dependence (Acute) Lumbosacral radiculopathy (Acute) Lumbar spondylosis (Acute) Hypertension (Chronic) Hyperlipidemia (Acute) Diabetic neuropathy (Acute) Depressive disorder (Chronic) Atherosclerosis of coronary artery (Acute) Medical History Acute kidney injury contrast-induced (12/2023) Hx of pulmonary embolus Protein calorie malnutrition Prolapsed lumbosacral intervertebral disc 04/23/2011 Acute [place] x3 Surgical History Hx of cataract surgery History of carpal tunnel release H/O heart artery stent x 9, last in 2017 History of spinal fusion x3 Family History (Updated 03/22/24 @ 14:41 by Ernst Ricci) Sister Diabetes Mother Diabetes Social History (Updated 03/22/24 @ 14:42 by Ernst Ricci) Smoking/Tobacco Use Status: Current every day Tobacco Type: cigarettes Smoking risk assessment performed?: Yes Alcohol Intake: never Drug use: Never Substance use type: does not use Details: Patient smoked 3 cigarettes today. Housing: apartment Do you feel safe at home: Yes Do you feel safe in your relationship?: Yes Additional Social history: Lives with in [place]. Disabled. [place] . Time Spent with Patient Time Spent with Patient: 70-84 minutes4 Time was spent: preparing to see the patient(eg.review tests), obtaining and/or reviewing separately otained hiistory, ordering medications,tests, procedures, referring, communicating with other health child care center assistant director, indepentently interpreting results, counseling the patient and care coordination
== END 2024-03-22 18:28 | disposition short-term general hospital (02) | DRG 264 ==
LOC: MS 13:53
PROVIDERS: Admitting Provider Family Medicine; PCP Family Medicine; Visit Provider Podiatrist
PROC: 0JBR0ZZ Excision of Left Foot Subcutaneous Tissue and Fascia, Open Approach (ICD-10-PCS; CPT 11043; principal; 2024-03-22 09:00)
DX: I70.234 Atherosclerosis of native arteries of right leg with ulceration of heel and midfoot (principal); E46 Unspecified protein-calorie malnutrition; I13.0 Hypertensive heart and chronic kidney disease with heart failure and stage 1 through stage 4 chronic kidney disease, or unspecified chronic kidney disease; I50.20 Unspecified systolic (congestive) heart failure; L97.422 Non-pressure chronic ulcer of left heel and midfoot with fat layer exposed; L97.412 Non-pressure chronic ulcer of right heel and midfoot with fat layer exposed; I70.244 Atherosclerosis of native arteries of left leg with ulceration of heel and midfoot; N18.31 Chronic kidney disease, stage 3a; E11.22 Type 2 diabetes mellitus with diabetic chronic kidney disease; I25.10 Atherosclerotic heart disease of native coronary artery without angina pectoris; Z79.4 Long term (current) use of insulin; Z79.82 Long term (current) use of aspirin; I34.0 Nonrheumatic mitral (valve) insufficiency; E11.65 Type 2 diabetes mellitus with hyperglycemia; F17.210 Nicotine dependence, cigarettes, uncomplicated; E11.42 Type 2 diabetes mellitus with diabetic polyneuropathy; M54.17 Radiculopathy, lumbosacral region; E78.5 Hyperlipidemia, unspecified; F32.A Depression, unspecified; Z86.711 Personal history of pulmonary embolism; I25.2 Old myocardial infarction; Z68.25 Body mass index [BMI] 25.0-25.9, adult
CPT/HCPCS: 11043; 11046; 11042; 00123; 36415; 80053; 85652; 73650; 85025; 86140; 87070; 87075; 87205; 99222; J0665; J0690; J1100; J1815; J2250; J2405; J2543; J2704; J3372

== ENCOUNTER 2024-04-05 05:58 | Day surgery (SDC) | payer MEDICAID, SELFPAY ==
[2024-04-05 06:08] VITALS: BP 165/86; PULSE 72; RESP 17; TEMP 36.2; O2SAT 100
--- NOTE | 2024-04-05 06:27 | W.ANESPRE ---
General Info Date of Service Date Performed: 04/05/24 Height: 5 ft 8 in Weight: 74.208 kg Body Mass Index (BMI): 24.8 Surgical Procedure: Operation Date: 04/05/24 07:40 Proposed Procedure Side Surgeon p Excisional Wound Debridement Heel/ Possible Bone Biopsy Bilateral Danyelle Lara DPM 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 and Home Medications Allergies Allergy/AdvReac Type Severity Reaction Status Date / Time codeine Allergy rash, Verified 04/05/24 06:26 cortisone Allergy urticaria Verified 04/05/24 06:26 Home Medication ?Medication ?Instructions ?Recorded aspirin 81 mg tablet,delayed 81 mg PO DAILY 04/27/23 release atorvastatin 80 mg tablet 80 mg PO DAILY 04/27/23 blood-glucose sensor ([facility] G7 04/27/23 Sensor device) fenofibrate 160 mg tablet 160 mg PO DAILY 04/27/23 insulin aspart U-100 100 unit/mL See Rx Instructions subcut TID 04/27/23 (3 mL) subcutaneous pen (Novolog FlexPen U-100 Insulin aspart) nutritional supplements pwd PO 05/28/23 apixaban 5 mg tablet (Eliquis) 5 mg PO BID 12/17/23 furosemide 20 mg tablet 20 mg PO DAILY PRN 02/17/24 glucagon 0.5 mg/0.1 mL 1 mg subcut ONCE 02/17/24 subcutaneous auto-injector (Gvoke HypoPen 1-Pack) haloperidol lactate 2 mg/mL oral See Rx Instructions PO .COMPLEX 02/17/24 concentrate loperamide 2 mg capsule 2 mg PO Q4H PRN 02/17/24 mirtazapine 7.5 mg tablet 7.5 mg PO QHS 02/17/24 pantoprazole 40 mg tablet,delayed 40 mg PO DAILY 02/17/24 release potassium chloride 20 mEq 20 meq PO DAILY 02/17/24 tablet,extended release torsemide 20 mg tablet 40 mg PO DAILY 02/17/24 acetaminophen 500 mg capsule 1,000 mg PO TID PRN 02/23/24 albuterol sulfate 90 mcg/actuation 2 puff inhalation Q4H PRN 02/23/24 aerosol inhaler bismuth subsalicylate 525 mg/15 mL 1,050 mg PO DAILY PRN 02/23/24 oral suspension haloperidol lactate 2 mg/mL oral 0.5 mg PO Q6H PRN 02/23/24 concentrate insulin glargine 100 unit/mL (3 38 unit subcut QPM 02/23/24 mL) subcutaneous pen (Basaglar KwikPen U-100 Insulin) insulin glargine 100 unit/mL (3 56 unit subcut QAM 02/23/24 mL) subcutaneous pen (Basaglar KwikPen U-100 Insulin) metoprolol succinate 12.5 cap PO DAILY 03/22/24 sacubitril-valsartan .Route 03/22/24 Current Visit Medications: Current Medications Generic Name Dose Route Start Last Admin Trade Name Freq PRN Reason Stop Dose Admin Ringer's Solution 1,000 mls @ 30 mls/hr 04/05/24 06:00 IV 04/05/24 23:59 INFUSION BURT Cefazolin Sodium/Dextrose 2 gm in 50 mls @ 100 mls/hr 04/05/24 06:00 Ancef Duplex IVPB 04/05/24 23:59 PREOP BURT IV Miscellaneous Supplies 1 each 04/05/24 06:00 Iv Access IV 04/05/24 23:59 DIRECTED BURT Sodium Chloride 0 ml 04/05/24 06:00 Normal Saline Flush 10 Ml Syr IV 04/05/24 23:59 PRN PRN Sodium Chloride 0 ml 04/05/24 06:00 Normal Saline 10 Ml Vial IJ 04/05/24 23:59 DIRECTED PRN Sterile Water 0 ml 04/05/24 06:00 Water,Injection,Sterile 10 Ml Vial IJ 04/05/24 23:59 DIRECTED PRN PFSH Active Problems Active Problems: Problem Status Onset Code Chronic kidney disease, stage 3a Acute N18.31 Atherosclerotic PVD with ulceration Acute I70.209, L98.499 Ischemic ulcer of right heel Acute L97.419 Ischemic ulcer of left heel Acute L97.429 Ulcer of right heel Acute L97.419 Ulcer of left heel Acute L97.429 Heart failure with reduced ejection fraction Acute I50.20 Mitral valve regurgitation Chronic I34.0 Hyperglycemia due to type 2 diabetes mellitus Acute E11.65 Diabetes Chronic E11.9 Smoker Acute F17.200 Peripheral neuropathy Acute G62.9 Chronic ulcer of right foot Acute L97.519 Ulcer of right foot with fat layer exposed Acute L97.512 Cellulitis Acute L03.90 PVD (peripheral vascular disease) Chronic I73.9 Osteomyelitis of right foot Acute M86.9 Pain in left foot Acute M79.672 Diabetic foot ulcer Acute E11.621, L97.509 Snoring Acute R06.83 Nicotine dependence Acute F17.200 Lumbosacral radiculopathy Acute M54.17 Lumbar spondylosis Acute M47.816 Hypertension Chronic I10 Hyperlipidemia Acute E78.5 Diabetic neuropathy Acute E11.40 Depressive disorder Chronic F32.A Atherosclerosis of coronary artery Acute I25.10 Medical History Medical History Acute kidney injury contrast-induced (12/2023) Hx of pulmonary embolus Protein calorie malnutrition Prolapsed lumbosacral intervertebral disc 04/23/2011 Acute [place] x3 Surgical History Surgical History Hx of cataract surgery History of carpal tunnel release H/O heart artery stent x 9, last in 2017 History of spinal fusion x3 Tobacco Smoking/Tobacco Use Status: Current every day Tobacco Type: cigarettes Alcohol Alcohol Intake: never Substance Use Substance use: Never Substance use type: does not use Details: Patient smoked 2 cigarettes today. Vital Signs and Lab Results Vital Signs Most Recent Vital Signs in EMR: Most Recent Vital Signs Temp Pulse Resp BP Pulse Ox 36.2 C L 72 17 165/86 H 100 04/05/24 06:08 04/05/24 06:08 04/05/24 06:08 04/05/24 06:08 04/05/24 06:08 Point of Care Results Point of Care Results: Finger Stick Blood Glucose 355 04/05/24 06:20 Lab Results Blood Type / Crossmatch: No Data to Display Complete Blood Count: White Blood Count 10.92 10^3/uL (4.4-10.8) H 03/22/24 12:58 Red Blood Count 3.89 10^6/uL (4.36-5.78) L 03/22/24 12:58 Hemoglobin 11.5 g/dL (13.5-17.5) L 03/22/24 12:58 Hematocrit 37.1 % (40.0-50.0) L 03/22/24 12:58 Platelet Count 287 10^3/uL (130-400) 03/22/24 12:58 Complete Metabolic Panel: Sodium 143 mmol/L (136-145) 03/22/24 12:58 Potassium 5.1 mmol/L (3.5-5.1) 03/22/24 12:58 Chloride 109 mmol/L (98-107) H 03/22/24 12:58 Carbon Dioxide 28.9 mmol/L (21.0-32.0) 03/22/24 12:58 BUN 35 mg/dL (7-18) H 03/22/24 12:58 Creatinine 1.4 mg/dL (0.70-1.30) H 03/22/24 12:58 Est GFR (CKD-EPI 2020) 59.36 (mL/min/1.73m2) 03/22/24 12:58 Calcium 9.0 mg/dL (8.5-10.1) 03/22/24 12:58 Albumin 2.8 g/dL (3.4-5.0) L 03/22/24 12:58 Glucose 85 mg/dL (74-106) 03/22/24 12:58 Hemoglobin A1c 9.1 % (<5.7) H 03/15/24 15:40 C-Reactive Protein < 0.50 mg/dL (<or=0.5) 03/22/24 12:58 Liver Function Panel: Alanine Aminotransferase (ALT/SGPT) 20 U/L (16-63) 03/22/24 12:58 Aspartate Amino Transf (AST/SGOT) 19 U/L (15-37) 03/22/24 12:58 Coagulation Panel: No Data to Display Cardiac Panel: No Data to Display Arterial Blood Gas: No Data to Display Venous Blood Gas: No Data to Display Pancreas Panel: No Data to Display Thyroid Panel: No Data to Display Infectious Disease: No Data to Display Blood Cultures: No Data to Display Toxicology Panel: No Data to Display Imaging and Studies Imaging and Studies Study information below may be from another EMR and interpreted by another provider. Please see original notes in EMR for more complete details. Echocardiogram Summary: 12/10/2023: EF 34%, RV normal size, LA severe dilation, Moderate to Severe MR, Mild to Mod TR, PASP 43, MR worsened, other findings similar to previous echo. CT Summary: 05/09/2023: IMPRESSION: 1. Atherosclerosis. 2. 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 3. 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 4. Filling defects seen in vessels in the lower lobes of the lungs consistent with pulmonary emboli. A pulmonary embolus CT scan of the chest is requested for further evaluation. 5. 1.9 x 2.2 cm cyst in the tail of the pancreas. MRI is recommended for further evaluation. 6. Findings were discussed with Dr. Raymond Maharaj of the emergency department at 5:20 p.m. on 05/09/2023. Anesthesia Assessment and Plan Anesthesia History Personal History: No History of Anesthesia Complications Family History: No Family History of Anesthesia Complications Exercise Tolerance Exercise Tolerance: Metabolic Equivalents>4 Cardiac & Pulmonary Exam Cardiac Exam: Heart Murmur Present Pulmonary Exam: Clear Bilateral Breath Sounds Implantable Cardiac Device Does patient have a Pacemaker or an ICD?: No Airway Exam Known Difficult Airway: No Mallampati Class: 1 Mouth Opening: Normal (> 3cm) Thyromental Distance: Greater than 3 cm Neck Range of Motion: Full ROM Neck Circumference: Normal Teeth Condition: Edentulous ASA Classification ASA Score: ASA 3 Emergency Case?: No NPO Status NPO Status: NPO Clears >2 hours, Solids >8 hours Anesthesia Plan Resuscitation Status: Full Code Anesthesia Technique: MAC Anesthesia Airway Planned: Natural Airway Monitors Used: Standard Monitors Preoperative Comments:: 53 yo male here for heel debridement. no major health history change since his last time with us. Sig PMHx: CAD (multiple MIs, 9 stents), HTN, MVR, DM2 (very poorly controlled), smoker. tolerated last procedure without issues and minimal sedation. BS today is 350s, insulin ordered.
[2024-04-05 06:36] VITALS: BMI 24.8
[2024-04-05] MEDS: Lactated Ringers 1,000 ML 30 ML IV (06:55)
--- NOTE | 2024-04-05 08:36 | BONE_PTH ---
PATIENT: Garett Renae LOC: [facility] U#:[id number] AGE/SX: 53/M ROOM: RE04/05/[address]: Danyelle Lara DPM : 1970 BED: DIS: 04/05/2024 SPEC #: [id number] RECD: 04/05/24 13:18 STATUS: DARCY REQ #: [id number] RASTA: 04/05/24 08:[address]: Danyelle Lara DEPT: Surgical Specimen RECD BY: Malena Angulo ENTERED: 04/05/24 13:19 SP TYPE: Bone OTHR DR: Marok Stevens MD Tissues: 1 - BONE BX/CURRETTE NOT PATH FRACTURE Procedures: GROSS AND MICRO LEVEL 5 Comments: [id number]
[2024-04-05] MEDS: Lidocaine 1% Pres-Free 30 ML VIAL (08:45)
[2024-04-05 08:54] VITALS: BP 142/69; PULSE 69; RESP 17; TEMP 35.8; O2SAT 100
--- NOTE | 2024-04-05 08:58 | W.PM.DSUDISC ---
Date of service: 04/05/24 Time of Service: 07:30 Discharge Plan Disposition Patient Disposition: Home Condition: Stable Discharge Details Attending Provider: Danyelle Lara Primary Care Provider: Marko Stevens Home Meds and New Rx's Prescriptions: No Action aspirin 81 mg tablet,delayed release (DR/EC) 81 mg PO DAILY atorvastatin 80 mg tablet 80 mg PO DAILY (DME) Dexcom G7 Sensor Device See Rx Instructions .Route Rx Instructions: As directed fenofibrate 160 mg tablet 160 mg PO DAILY insulin aspart U-100 [Novolog FlexPen U-100 Insulin] 100 unit/mL (3 mL) insulin pen See Rx Instructions subcut TID Rx Instructions: subcutaneously three times a day; nutritional supplements Powder PO Rx Instructions: Placido Eliquis 5 mg tablet 5 mg PO BID furosemide 20 mg tablet 20 mg PO DAILY PRN Gvoke HypoPen 1-Pack 0.5 mg/0.1 mL auto-injector 1 mg subcut ONCE Rx Instructions: as a single dose; may repeat once after 15 minutes if no response haloperidol lactate 2 mg/mL concentrate See Rx Instructions PO .COMPLEX Rx Instructions: orally; dosing not provided by PCP loperamide 2 mg capsule 2 mg PO Q4H PRN Rx Instructions: administer after each loose stool until symptoms controlled; do not exceed 8 mg per 24 hrs mirtazapine 7.5 mg tablet 7.5 mg PO QHS pantoprazole 40 mg tablet,delayed release (DR/EC) 40 mg PO DAILY potassium chloride 20 mEq tablet extended release 20 meq PO DAILY Patient Comments: pt doesn't take anymore torsemide 20 mg tablet 40 mg PO DAILY insulin glargine [Basaglar KwikPen U-100 Insulin] 100 unit/mL (3 mL) insulin pen 56 unit subcut QAM insulin glargine [Basaglar KwikPen U-100 Insulin] 100 unit/mL (3 mL) insulin pen 38 unit subcut QPM albuterol sulfate 90 mcg/actuation HFA aerosol inhaler 2 puff inhalation Q4H PRN haloperidol lactate 2 mg/mL concentrate 0.5 mg PO Q6H PRN Rx Instructions: 0.25-0.50 ml q6h N/v bismuth subsalicylate 525 mg/15 mL suspension 1,050 mg PO DAILY PRN Rx Instructions: for diarrhea acetaminophen 500 mg capsule 1,000 mg PO TID PRN doxycycline hyclate 100 mg capsule 100 mg PO BID Qty: 28 0RF sacubitril-valsartan [Entresto] .Route Patient Comments: per patient just started for heart valve metoprolol succinate 12.5 cap PO DAILY Discharge Instructions Additional Instructions: Please keep your dressings clean, dry and intact. Please have your heels elevated and floating in air at all times. Limit ambulation. Follow-up in office on Stand Alone Forms: Podiatry Instructions-DSU Equipment/Supplies: Non-Weight Bearing Crutches Activity:: Elevate Remove Dressings/Wound Care:: Do Not Remove Shower/Bathe:: Cover Diet:: Carb Counting Discharge Orders Discharge Orders: Discharge Order (Routine); Ordered 04/05/24 Ordered By: Danyelle Lara
--- NOTE | 2024-04-05 09:02 | ROE_ITS ---
Date of service: 04/05/24 Time of Service: 07:30 Operative Note Operative Note DATE OF PROCEDURE: 04/05/24 PRE-OP DIAGNOSIS: Nonhealing, full-thickness heel ulcers, bilateral including level of subcutaneous tissue POST-OP DIAGNOSIS: same PROCEDURE: Excisional wound debridement including subcutaneous tissue bilateral heels SURGEON: Danyelle Lara ANESTHESIA TYPE: Local By Surgeon (20 mL 1% lidocaine plain preoperatively) Refer to Anesthesia Record ESTIMATED BLOOD LOSS: 2 PATHOLOGY: other (Bone, left heel) COMPLICATIONS: None Patient was transported to: same day Patient's condition: stable Indications: This is a 53-year-old male patient with history of diabetes and ulceration which have been nonhealing bilaterally. I discussed the risks, benefits and possible complications of the procedure including but not limited to pain, nerve pain, delayed healing, nonhealing, infection, infection to tendon and bone, risk for further surgery or amputation, DVT, PE, stroke, [place] or with anesthesia. Patient understands and assumes all risks no guarantees or warranties were made or implied. Patient elected to proceed with surgery. Medical clearance in. Consent form signed reviewed in chart. Findings: Right heel postsurgical dimensions: 1.6 x 0.9 x 0.4 cm. Ulcer is 100% necrotic predebridement. Postdebridement healthy granulation tissue noted. No periwound erythema no edema no drainage malodor. Left heel postsurgical measurements: 5.0 x 4.5 x 2.0 cm. The ulcer is 100% necrotic predebridement. There is edema, erythema, heavy drainage and malodor noted, no proximal streaking or lymphangitis noted. Base of the ulcer appears healthy, bleeding and granular postdebridement. There is tunneling noted towards the plantar fat pad about 2.0 cm. Procedure Description: Patient was identified in preop holding. Site were marked. Consent form signed reviewed in chart. No contraindications noted at this time. Patient was brought to the operating room, placed on the operating table in supine position. After induction of anesthesia, local anesthesia was obtained using 20 mL 1% lidocaine plain preoperatively bilaterally. Bilateral lower extremity were then scrubbed, prepped and draped in the usual aseptic manner. Attention was then directed to the lateral aspect of the right heel where a full-thickness ulceration was noted. The Versajet was used for excisional debridement of right heel ulcer including the level of subcutaneous tissue until healthy, bleeding granular base was noted. Upon debridement, dressings were applied with Xeroform, 4 x 4, Kerlix and an Mike wrap. Attention was then directed to the posterior aspect of the left heel where a full-thickness ulceration was noted. Using a Versajet for excisional wound debridement the ulcer was debrided excisionally including the level of subcutaneous tissue until healthy, bleeding granular base was noted. Next, a Jamshidi needle was used to obtain 2 calcaneal bone specimens. This was sent to pathology and microbiology. Bone wax was applied here for hemostasis. Hemostasis was noted. Dressings were then applied with Xeroform packing gauze, 4 x 4, Kerlix and an Mike wrap. Patient tolerated the procedure and anesthesia well with vital signs stable and vascular status intact to both lower extremity. Patient is to keep the dressings clean, dry and intact. Patient is to follow- up in office on . This will need repeat debridement. Antibiotics were sent.
--- NOTE | 2024-04-05 09:05 | W.ANESPOSTOP ---
Postoperative Evaluation Date, Time and Location Date Performed: 04/05/24 Time Performed: 09:05 Patient Location: Day Surgery Unit Vital Signs Most Recent Imported Vital Signs: Most Recent Vital Signs Temp Pulse Resp BP Pulse Ox 35.8 C L 69 17 142/69 H 100 04/05/24 08:54 04/05/24 08:54 04/05/24 08:54 04/05/24 08:54 04/05/24 08:54 Pain Score Most Recent Pain Score: Most Recent Pain Score Pain Level 8 04/05/24 08:54 Assessment Mental Status: Awake (Alert & Oriented to Patient Baseline) Airway and Respiratory Function: Patent airway with normal (patient baseline) respiratory exam Cardiovascular Function: Hemodynamically Stable Hydration Status: Adequately Hydrated Nausea & Vomiting: No Nausea or Vomiting Pain: Pt. Denies Any Pain Peripheral Nerve Block: Patient did not receive a nerve block
[2024-04-05 09:26] VITALS: BP 140/57; PULSE 62; RESP 17; TEMP 36.3; O2SAT 100
== END 2024-04-05 09:52 | disposition home or self-care (01) ==
PROVIDERS: PCP Family Medicine; Visit Provider Podiatrist
PROC: (CPT 20220; principal; 2024-04-05 07:30)
DX: E11.621 Type 2 diabetes mellitus with foot ulcer (principal); L97.414 Non-pressure chronic ulcer of right heel and midfoot with necrosis of bone; L97.422 Non-pressure chronic ulcer of left heel and midfoot with fat layer exposed; Z79.4 Long term (current) use of insulin; M89.8X7 Other specified disorders of bone, ankle and foot
CPT/HCPCS: 20220; 11042; 11045; 00123; 87077; 87070; 87075; 87186; 87205; 88304; 88307; J2250

== ENCOUNTER 2024-04-12 07:36 | Day surgery (SDC) | payer MEDICAID, SELFPAY ==
[2024-04-12 07:59] VITALS: BP 113/58; PULSE 71; RESP 18; TEMP 36.6; O2SAT 98
[2024-04-12] MEDS: Normal Saline Flush 10 ML SYR IV (08:20)
[2024-04-12 08:22] VITALS: BMI 24.3
--- NOTE | 2024-04-12 08:22 | ANES.PREOP_ITS ---
General Info Date of Service Date Performed: 04/12/24 Height: 5 ft 8 in Weight: 72.6 kg Body Mass Index (BMI): 24.3 Surgical Procedure: Operation Date: 04/12/24 09:25 Proposed Procedure Side Surgeon p Excisional Wound Debridement Heels Bilateral Danyelle Lara DPM 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 and Home Medications Allergies Allergy/AdvReac Type Severity Reaction Status Date / Time codeine Allergy rash, Verified 04/08/24 11:04 cortisone Allergy urticaria Verified 04/08/24 11:04 Home Medication ?Medication ?Instructions ?Recorded aspirin 81 mg tablet,delayed 81 mg PO DAILY 04/27/23 release atorvastatin 80 mg tablet 80 mg PO DAILY 04/27/23 blood-glucose sensor ([employer] G7 04/27/23 Sensor device) fenofibrate 160 mg tablet 160 mg PO DAILY 04/27/23 insulin aspart U-100 100 unit/mL See Rx Instructions subcut TID 04/27/23 (3 mL) subcutaneous pen (Novolog FlexPen U-100 Insulin aspart) nutritional supplements pwd PO 05/28/23 apixaban 5 mg tablet (Eliquis) 5 mg PO BID 12/17/23 furosemide 20 mg tablet 20 mg PO DAILY PRN 02/17/24 glucagon 0.5 mg/0.1 mL 1 mg subcut ONCE 02/17/24 subcutaneous auto-injector (Gvoke HypoPen 1-Pack) haloperidol lactate 2 mg/mL oral See Rx Instructions PO .COMPLEX 02/17/24 concentrate loperamide 2 mg capsule 2 mg PO Q4H PRN 02/17/24 mirtazapine 7.5 mg tablet 7.5 mg PO QHS 02/17/24 pantoprazole 40 mg tablet,delayed 40 mg PO DAILY 02/17/24 release potassium chloride 20 mEq 20 meq PO DAILY 02/17/24 tablet,extended release torsemide 20 mg tablet 40 mg PO DAILY 02/17/24 acetaminophen 500 mg capsule 1,000 mg PO TID PRN 02/23/24 albuterol sulfate 90 mcg/actuation 2 puff inhalation Q4H PRN 02/23/24 aerosol inhaler bismuth subsalicylate 525 mg/15 mL 1,050 mg PO DAILY PRN 02/23/24 oral suspension haloperidol lactate 2 mg/mL oral 0.5 mg PO Q6H PRN 02/23/24 concentrate insulin glargine 100 unit/mL (3 38 unit subcut QPM 02/23/24 mL) subcutaneous pen (Basaglar KwikPen U-100 Insulin) insulin glargine 100 unit/mL (3 56 unit subcut QAM 02/23/24 mL) subcutaneous pen (Basaglar KwikPen U-100 Insulin) metoprolol succinate 12.5 cap PO DAILY 03/22/24 sacubitril-valsartan .Route 03/22/24 doxycycline hyclate 100 mg capsule 100 mg PO BID #28 caps 04/05/24 hydrocodone 5 mg-acetaminophen 325 1 tab PO DIRECTED 04/08/24 mg tablet Current Visit Medications: Current Medications Generic Name Dose Route Start Last Admin Trade Name Freq PRN Reason Stop Dose Admin Ringer's Solution 1,000 mls @ 30 mls/hr 04/12/24 06:00 IV 04/12/24 23:59 INFUSION BURT Cefazolin Sodium/Dextrose 2 gm in 50 mls @ 100 mls/hr 04/12/24 06:00 Ancef Duplex IVPB 04/12/24 23:59 PREOP BURT IV Miscellaneous Supplies 1 each 04/12/24 06:00 Iv Access IV 04/12/24 23:59 DIRECTED BURT Sodium Chloride 0 ml 04/12/24 06:00 04/12/24 08:20 Normal Saline Flush 10 Ml Syr IV 04/12/24 23:59 10 ml PRN PRN Administration Sodium Chloride 0 ml 04/12/24 06:00 Normal Saline 10 Ml Vial IJ 04/12/24 23:59 DIRECTED PRN Sterile Water 0 ml 04/12/24 06:00 Water,Injection,Sterile 10 Ml Vial IJ 04/12/24 23:59 DIRECTED PRN PFSH Active Problems Active Problems: Problem Status Onset Code Osteomyelitis of left ankle Acute M86.9 Chronic kidney disease, stage 3a Acute N18.31 Atherosclerotic PVD with ulceration Acute I70.209, L98.499 Ischemic ulcer of right heel Acute L97.419 Ischemic ulcer of left heel Acute L97.429 Ulcer of right heel Acute L97.419 Ulcer of left heel Acute L97.429 Heart failure with reduced ejection fraction Acute I50.20 Mitral valve regurgitation Chronic I34.0 Hyperglycemia due to type 2 diabetes mellitus Acute E11.65 Diabetes Chronic E11.9 Smoker Acute F17.200 Peripheral neuropathy Acute G62.9 Chronic ulcer of right foot Acute L97.519 Ulcer of right foot with fat layer exposed Acute L97.512 Cellulitis Acute L03.90 PVD (peripheral vascular disease) Chronic I73.9 Osteomyelitis of right foot Acute M86.9 Pain in left foot Acute M79.672 Diabetic foot ulcer Acute E11.621, L97.509 Snoring Acute R06.83 Nicotine dependence Acute F17.200 Lumbosacral radiculopathy Acute M54.17 Lumbar spondylosis Acute M47.816 Hypertension Chronic I10 Hyperlipidemia Acute E78.5 Diabetic neuropathy Acute E11.40 Depressive disorder Chronic F32.A Atherosclerosis of coronary artery Acute I25.10 Medical History Medical History Acute kidney injury contrast-induced (12/2023) Hx of pulmonary embolus Protein calorie malnutrition Prolapsed lumbosacral intervertebral disc 04/23/2011 Acute [place] x3 Surgical History Surgical History Hx of cataract surgery History of carpal tunnel release H/O heart artery stent x 9, last in 2017 History of spinal fusion x3 Tobacco Smoking/Tobacco Use Status: Current every day Tobacco Type: cigarettes Alcohol Alcohol Intake: never Substance Use Substance use: Never Substance use type: does not use Details: Patient smoked 2 cigarettes today. Vital Signs and Lab Results Vital Signs Most Recent Vital Signs in EMR: Most Recent Vital Signs Temp Pulse Resp BP Pulse Ox 36.6 C 71 18 113/58 L 98 04/12/24 07:59 04/12/24 07:59 04/12/24 07:59 04/12/24 07:59 04/12/24 07:59 Lab Results Blood Type / Crossmatch: No Data to Display Complete Blood Count: White Blood Count 10.92 10^3/uL (4.4-10.8) H 03/22/24 12:58 Red Blood Count 3.89 10^6/uL (4.36-5.78) L 03/22/24 12:58 Hemoglobin 11.5 g/dL (13.5-17.5) L 03/22/24 12:58 Hematocrit 37.1 % (40.0-50.0) L 03/22/24 12:58 Platelet Count 287 10^3/uL (130-400) 03/22/24 12:58 Complete Metabolic Panel: Sodium 143 mmol/L (136-145) 03/22/24 12:58 Potassium 5.1 mmol/L (3.5-5.1) 03/22/24 12:58 Chloride 109 mmol/L (98-107) H 03/22/24 12:58 Carbon Dioxide 28.9 mmol/L (21.0-32.0) 03/22/24 12:58 BUN 35 mg/dL (7-18) H 03/22/24 12:58 Creatinine 1.4 mg/dL (0.70-1.30) H 03/22/24 12:58 Est GFR (CKD-EPI 2020) 59.36 (mL/min/1.73m2) 03/22/24 12:58 Calcium 9.0 mg/dL (8.5-10.1) 03/22/24 12:58 Albumin 2.8 g/dL (3.4-5.0) L 03/22/24 12:58 Glucose 85 mg/dL (74-106) 03/22/24 12:58 Hemoglobin A1c 9.1 % (<5.7) H 03/15/24 15:40 C-Reactive Protein < 0.50 mg/dL (<or=0.5) 03/22/24 12:58 Liver Function Panel: Alanine Aminotransferase (ALT/SGPT) 20 U/L (16-63) 03/22/24 12: 58 Aspartate Amino Transf (AST/SGOT) 19 U/L (15-37) 03/22/24 12:58 Coagulation Panel: No Data to Display Cardiac Panel: No Data to Display Arterial Blood Gas: No Data to Display Venous Blood Gas: No Data to Display Pancreas Panel: No Data to Display Thyroid Panel: No Data to Display Infectious Disease: No Data to Display Blood Cultures: No Data to Display Toxicology Panel: No Data to Display Imaging and Studies Imaging and Studies Study information below may be from another EMR and interpreted by another provider. Please see original notes in EMR for more complete details. Echocardiogram Summary: 12/10/2023: EF 34%, RV normal size, LA severe dilation, Moderate to Severe MR, Mild to Mod TR, PASP 43, MR worsened, other findings similar to previous echo. CT Summary: 05/09/2023: IMPRESSION: 1. Atherosclerosis. 2. 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 3. 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 4. Filling defects seen in vessels in the lower lobes of the lungs consistent with pulmonary emboli. A pulmonary embolus CT scan of the chest is requested for further evaluation. 5. 1.9 x 2.2 cm cyst in the tail of the pancreas. MRI is recommended for further evaluation. 6. Findings were discussed with Dr. Raymond Maharaj of the emergency department at 5:20 p.m. on 05/09/2023. Anesthesia Assessment and Plan Anesthesia History Personal History: No History of Anesthesia Complications Family History: No Family History of Anesthesia Complications Exercise Tolerance Exercise Tolerance: Metabolic Equivalents>4 Pertinent Negatives Pertinent Negatives: No Symptoms of GERD Cardiac & Pulmonary Exam Cardiac Exam: Normal S1/S2 Heart Sounds Pulmonary Exam: Clear Bilateral Breath Sounds Implantable Cardiac Device Does patient have a Pacemaker or an ICD?: No Airway Exam Known Difficult Airway: No Mallampati Class: 1 Mouth Opening: Normal (> 3cm) Thyromental Distance: Greater than 3 cm Neck Range of Motion: Full ROM Neck Circumference: Normal Teeth Condition: Edentulous ASA Classification ASA Score: ASA 3 Emergency Case?: No NPO Status NPO Status: NPO Clears >2 hours, Solids >8 hours Anesthesia Plan Resuscitation Status: Full Code Anesthesia Technique: MAC Anesthesia Airway Planned: Natural Airway Monitors Used: Standard Monitors
[2024-04-12] MEDS: ceFAZolin 2 GM/50 ML BAG IVPB (09:37)
[2024-04-12] MEDS: Lidocaine 1% Pres-Free 30 ML VIAL (09:45)
[2024-04-12 10:18] VITALS: BP 132/67; PULSE 62; RESP 18; TEMP 36.6; O2SAT 98
--- NOTE | 2024-04-12 10:19 | W.PM.DSUDISC ---
Date of service: 04/12/24 Time of Service: 09:30 Discharge Plan Disposition Patient Disposition: Home Condition: Stable Discharge Details Attending Provider: Danyelle Lara Primary Care Provider: Marko Stevens Home Meds and New Rx's Prescriptions: No Action aspirin 81 mg tablet,delayed release (DR/EC) 81 mg PO DAILY atorvastatin 80 mg tablet 80 mg PO DAILY (DME) Dexcom G7 Sensor Device See Rx Instructions .Route Rx Instructions: As directed fenofibrate 160 mg tablet 160 mg PO DAILY insulin aspart U-100 [Novolog FlexPen U-100 Insulin] 100 unit/mL (3 mL) insulin pen See Rx Instructions subcut TID Rx Instructions: subcutaneously three times a day; nutritional supplements Powder PO Rx Instructions: Placido Eliquis 5 mg tablet 5 mg PO BID furosemide 20 mg tablet 20 mg PO DAILY PRN Gvoke HypoPen 1-Pack 0.5 mg/0.1 mL auto-injector 1 mg subcut ONCE Rx Instructions: as a single dose; may repeat once after 15 minutes if no response haloperidol lactate 2 mg/mL concentrate See Rx Instructions PO .COMPLEX Rx Instructions: orally; dosing not provided by PCP loperamide 2 mg capsule 2 mg PO Q4H PRN Rx Instructions: administer after each loose stool until symptoms controlled; do not exceed 8 mg per 24 hrs mirtazapine 7.5 mg tablet 7.5 mg PO QHS pantoprazole 40 mg tablet,delayed release (DR/EC) 40 mg PO DAILY potassium chloride 20 mEq tablet extended release 20 meq PO DAILY Patient Comments: pt doesn't take anymore torsemide 20 mg tablet 40 mg PO DAILY insulin glargine [Basaglar KwikPen U-100 Insulin] 100 unit/mL (3 mL) insulin pen 56 unit subcut QAM insulin glargine [Basaglar KwikPen U-100 Insulin] 100 unit/mL (3 mL) insulin pen 38 unit subcut QPM albuterol sulfate 90 mcg/actuation HFA aerosol inhaler 2 puff inhalation Q4H PRN haloperidol lactate 2 mg/mL concentrate 0.5 mg PO Q6H PRN Rx Instructions: 0.25-0.50 ml q6h N/v bismuth subsalicylate 525 mg/15 mL suspension 1,050 mg PO DAILY PRN Rx Instructions: for diarrhea acetaminophen 500 mg capsule 1,000 mg PO TID PRN doxycycline hyclate 100 mg capsule 100 mg PO BID Qty: 28 0RF hydrocodone-acetaminophen 5-325 mg tablet 1 tab PO DIRECTED Patient Comments: TAKE 1 TABLET BY MOUTH TWICE DAILY NEEDED FOR PAIN sacubitril-valsartan [Entresto] .Route Patient Comments: per patient just started for heart valve metoprolol succinate 12.5 cap PO DAILY Discharge Instructions Stand Alone Forms: Podiatry Instructions-DSU Activity:: Elevate Remove Dressings/Wound Care:: Do Not Remove Shower/Bathe:: Cover Diet:: Normal Diet Discharge Orders Discharge Orders: Discharge Order (Routine); Ordered 04/12/24 Ordered By: Danyelle Lara DS: Diagnosis Discharge Diagnosis (1) Osteomyelitis of left ankle: Status: Acute (2) Ischemic ulcer of right heel: Status: Acute (3) Ulcer of right heel: Status: Acute (4) Ulcer of left heel: Status: Acute (5) Peripheral neuropathy: Status: Acute (6) Chronic ulcer of right foot: Status: Acute (7) Ulcer of right foot with fat layer exposed: Status: Acute (8) Chronic ulcer of left heel with fat layer exposed: Status: Acute (9) Cellulitis: Status: Acute
[2024-04-12 10:43] VITALS: BP 132/77; PULSE 65; RESP 16; TEMP 36.6; O2SAT 98
--- NOTE | 2024-04-12 11:06 | W.ANESPOSTOP ---
Postoperative Evaluation Date, Time and Location Date Performed: 04/12/24 Time Performed: 11:06 Patient Location: Day Surgery Unit Vital Signs Most Recent Imported Vital Signs: Most Recent Vital Signs Temp Pulse Resp BP Pulse Ox 36.6 C 65 16 132/77 98 04/12/24 10:43 04/12/24 10:43 04/12/24 10:43 04/12/24 10:43 04/12/24 10:43 Pain Score Most Recent Pain Score: Most Recent Pain Score Pain Level 04/12/24 Assessment Mental Status: Awake (Alert & Oriented to Patient Baseline) Airway and Respiratory Function: Patent airway with normal (patient baseline) respiratory exam Cardiovascular Function: Hemodynamically Stable Hydration Status: Adequately Hydrated Nausea & Vomiting: No Nausea or Vomiting Pain: Pain is tolerable per patient Peripheral Nerve Block: Patient did not receive a nerve block
--- NOTE | 2024-04-12 11:40 | W.PM.OP ---
Date of service: 04/12/24 Time of Service: 09:30 Operative Note Operative Note DATE OF PROCEDURE: 04/12/24 PRE-OP DIAGNOSIS: Chronic, nonhealing ulcers, bilateral heels. POST-OP DIAGNOSIS: same PROCEDURE: Excisional wound debridement, bilateral heels Right heel measurement: 1.5 x 0.9 x 0.3 cm post debridement. Left heel ulcer measures approximately 4.5 cm x 4.0 cm by 1.0 cm deep SURGEON: Danyelle Lara ANESTHESIA TYPE: Local By Surgeon (20 mL 1% lidocaine plain preop) Refer to Anesthesia Record ESTIMATED BLOOD LOSS: 2 PATHOLOGY: none sent COMPLICATIONS: None Patient was transported to: same day Patient's condition: stable Indications: 53-year-old diabetic male patient with chronic, nonhealing ulcers bilaterally. Heavy green drainage noted to the left heel ulcer at this time, no proximal streaking or lymphangitis. Findings: Procedure Description: Patient was identified in preop holding. Sites were marked. Consent form signed reviewed in chart. No contraindications noted at this time. Patient was brought to the operating room, placed on the operating table in supine position. After induction of anesthesia, local anesthesia was obtained using 20 mL 1% lidocaine plain preoperatively bilaterally. Bilateral lower extremity were then scrubbed, prepped and draped in the usual aseptic manner. Attention was then directed to the lateral aspect of the right heel where a full-thickness ulceration was noted. The Versajet was used for excisional debridement of right heel ulcer including the level of subcutaneous tissue until healthy, bleeding granular base was noted. Upon debridement, dressings were applied with Xeroform, 4 x 4, Kerlix and an Mike wrap. Attention was then directed to the posterior aspect of the left heel where a full-thickness ulceration was noted. Using a Versajet for excisional wound debridement the ulcer was debrided excisionally including the level of subcutaneous tissue until healthy, bleeding granular base was noted. Dressings were then applied with Xeroform packing gauze, 4 x 4, Kerlix, ABD pad, and kerlix/coban/webril and coban compression at 50% overlap. Patient tolerated the procedure and anesthesia well with vital signs stable and vascular status intact to both lower extremity. Patient is to keep the dressings clean, dry and intact. Patient is to follow-up in office on . This will need repeat debridement. Antibiotics will be sent for Pseudomonas coverage since there is green drainage today.
== END 2024-04-12 11:30 | disposition home or self-care (01) ==
PROVIDERS: PCP Family Medicine; Visit Provider Podiatrist
PROC: (CPT 97597; principal; 2024-04-12 09:15)
DX: M86.171 Other acute osteomyelitis, right ankle and foot (principal); E11.621 Type 2 diabetes mellitus with foot ulcer; L97.512 Non-pressure chronic ulcer of other part of right foot with fat layer exposed; L97.422 Non-pressure chronic ulcer of left heel and midfoot with fat layer exposed; E11.42 Type 2 diabetes mellitus with diabetic polyneuropathy
CPT/HCPCS: 97597; 00123; J0690; J1100; J2250; J2405; J2704

== ENCOUNTER 2024-04-19 06:22 | Day surgery (SDC) | payer MEDICAID, SELFPAY ==
[2024-04-19 06:40] VITALS: BP 124/75; PULSE 58; RESP 20; TEMP 36.6; O2SAT 98
[2024-04-19] MEDS: Normal Saline Flush 10 ML SYR IV (06:59)
--- NOTE | 2024-04-19 07:24 | W.ANESPRE ---
General Info Date of Service Date Performed: 04/19/24 Height: 5 ft 8 in Weight: 75 kg Body Mass Index (BMI): 25.1 Surgical Procedure: Operation Date: 04/19/24 07:40 Proposed Procedure Side Surgeon p Excisional Wound Debridement Heels Bilateral Danyelle Lara DPM 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 and Home Medications Allergies Allergy/AdvReac Type Severity Reaction Status Date / Time codeine Allergy rash, Verified 04/19/24 06:32 cortisone Allergy urticaria Verified 04/19/24 06:32 Home Medication ?Medication ?Instructions ?Recorded aspirin 81 mg tablet,delayed 81 mg PO DAILY 04/27/23 release atorvastatin 80 mg tablet 80 mg PO DAILY 04/27/23 blood-glucose sensor ([employer] G7 04/27/23 Sensor device) fenofibrate 160 mg tablet 160 mg PO DAILY 04/27/23 insulin aspart U-100 100 unit/mL See Rx Instructions subcut TID 04/27/23 (3 mL) subcutaneous pen (Novolog FlexPen U-100 Insulin aspart) apixaban 5 mg tablet (Eliquis) 5 mg PO BID 12/17/23 furosemide 20 mg tablet 20 mg PO DAILY PRN 02/17/24 glucagon 0.5 mg/0.1 mL 1 mg subcut ONCE 02/17/24 subcutaneous auto-injector (Gvoke HypoPen 1-Pack) haloperidol lactate 2 mg/mL oral See Rx Instructions PO .COMPLEX 02/17/24 concentrate loperamide 2 mg capsule 2 mg PO Q4H PRN 02/17/24 mirtazapine 7.5 mg tablet 7.5 mg PO QHS 02/17/24 pantoprazole 40 mg tablet,delayed 40 mg PO DAILY 02/17/24 release potassium chloride 20 mEq 20 meq PO DAILY 02/17/24 tablet,extended release torsemide 20 mg tablet 40 mg PO DAILY 02/17/24 acetaminophen 500 mg capsule 1,000 mg PO TID PRN 02/23/24 albuterol sulfate 90 mcg/actuation 2 puff inhalation Q4H PRN 02/23/24 aerosol inhaler bismuth subsalicylate 525 mg/15 mL 1,050 mg PO DAILY PRN 02/23/24 oral suspension haloperidol lactate 2 mg/mL oral 0.5 mg PO Q6H PRN 02/23/24 concentrate insulin glargine 100 unit/mL (3 38 unit subcut QPM 02/23/24 mL) subcutaneous pen (Basaglar KwikPen U-100 Insulin) insulin glargine 100 unit/mL (3 56 unit subcut QAM 02/23/24 mL) subcutaneous pen (Basaglar KwikPen U-100 Insulin) metoprolol succinate 12.5 cap PO DAILY 03/22/24 sacubitril-valsartan 1 cap PO DAILY 03/22/24 hydrocodone 5 mg-acetaminophen 325 1 tab PO DIRECTED 04/08/24 mg tablet ciprofloxacin HCl 500 mg tablet 500 mg PO BID #14 tabs 04/12/24 nutritional supplements See Rx Instructions PO .QD 3 04/12/24 months #30 packets sulfamethoxazole 800 1 tab PO BID 14 days #28 tabs 04/15/24 mg-trimethoprim 160 mg tablet (Bactrim DS) Current Visit Medications: Current Medications Generic Name Dose Route Start Last Admin Trade Name Freq PRN Reason Stop Dose Admin Cefazolin Sodium/Dextrose 2 gm in 50 mls @ 100 mls/hr 04/19/24 06:00 Ancef Duplex IVPB 05/16/24 23:59 PREOP BURT IV Miscellaneous Supplies 1 each 04/19/24 06:00 Iv Access IV 05/16/24 23:59 DIRECTED BURT Sodium Chloride 0 ml 04/19/24 06:00 04/19/24 06:59 Normal Saline Flush 10 Ml Syr IV 05/16/24 23:59 10 ml PRN PRN Administration Sodium Chloride 0 ml 04/19/24 06:00 Normal Saline 10 Ml Vial IJ 05/16/24 23:59 DIRECTED PRN Sterile Water 0 ml 04/19/24 06:00 Water,Injection,Sterile 10 Ml Vial IJ 05/16/24 23:59 DIRECTED PRN PFSH Active Problems Active Problems: Problem Status Onset Code Chronic ulcer of left heel with fat layer exposed Acute L97.422 Osteomyelitis of left ankle Acute M86.9 Chronic kidney disease, stage 3a Acute N18.31 Atherosclerotic PVD with ulceration Acute I70.209, L98.499 Ischemic ulcer of right heel Acute L97.419 Ischemic ulcer of left heel Acute L97.429 Ulcer of right heel Acute L97.419 Ulcer of left heel Acute L97.429 Heart failure with reduced ejection fraction Acute I50.20 Mitral valve regurgitation Chronic I34.0 Hyperglycemia due to type 2 diabetes mellitus Acute E11.65 Diabetes Chronic E11.9 Smoker Acute F17.200 Peripheral neuropathy Acute G62.9 Chronic ulcer of right foot Acute L97.519 Ulcer of right foot with fat layer exposed Acute L97.512 Cellulitis Acute L03.90 PVD (peripheral vascular disease) Chronic I73.9 Osteomyelitis of right foot Acute M86.9 Pain in left foot Acute M79.672 Diabetic foot ulcer Acute E11.621, L97.509 Snoring Acute R06.83 Nicotine dependence Acute F17.200 Lumbosacral radiculopathy Acute M54.17 Lumbar spondylosis Acute M47.816 Hypertension Chronic I10 Hyperlipidemia Acute E78.5 Diabetic neuropathy Acute E11.40 Depressive disorder Chronic F32.A Atherosclerosis of coronary artery Acute I25.10 Medical History Medical History Acute kidney injury contrast-induced (12/2023) Hx of pulmonary embolus Protein calorie malnutrition Prolapsed lumbosacral intervertebral disc 04/23/2011 Acute [place] x3 Surgical History Surgical History Hx of cataract surgery History of carpal tunnel release H/O heart artery stent x 9, last in 2017 History of spinal fusion x3 Tobacco Smoking/Tobacco Use Status: Current every day Tobacco Type: cigarettes Alcohol Alcohol Intake: never Substance Use Substance use: Never Substance use type: does not use Details: Patient smoked 2 cigarettes today. Vital Signs and Lab Results Vital Signs Most Recent Vital Signs in EMR: Most Recent Vital Signs Temp Pulse Resp BP Pulse Ox 36.6 C 58 L 20 124/75 98 04/19/24 06:40 04/19/24 06:40 04/19/24 06:40 04/19/24 06:40 04/19/24 06:40 Lab Results Blood Type / Crossmatch: No Data to Display Complete Blood Count: White Blood Count 10.92 10^3/uL (4.4-10.8) H 03/22/24 12:58 Red Blood Count 3.89 10^6/uL (4.36-5.78) L 03/22/24 12:58 Hemoglobin 11.5 g/dL (13.5-17.5) L 03/22/24 12:58 Hematocrit 37.1 % (40.0-50.0) L 03/22/24 12:58 Platelet Count 287 10^3/uL (130-400) 03/22/24 12:58 Complete Metabolic Panel: Sodium 143 mmol/L (136-145) 03/22/24 12:58 Potassium 5.1 mmol/L (3.5-5.1) 03/22/24 12:58 Chloride 109 mmol/L (98-107) H 03/22/24 12:58 Carbon Dioxide 28.9 mmol/L (21.0-32.0) 03/22/24 12:58 BUN 35 mg/dL (7-18) H 03/22/24 12:58 Creatinine 1.4 mg/dL (0.70-1.30) H 03/22/24 12:58 Est GFR (CKD-EPI 2020) 59.36 (mL/min/1.73m2) 03/22/24 12:58 Calcium 9.0 mg/dL (8.5-10.1) 03/22/24 12:58 Albumin 2.8 g/dL (3.4-5.0) L 03/22/24 12:58 Glucose 85 mg/dL (74-106) 03/22/24 12:58 C-Reactive Protein < 0.50 mg/dL (<or=0.5) 03/22/24 12:58 Liver Function Panel: Alanine Aminotransferase (ALT/SGPT) 20 U/L (16-63) 03/22/24 12:58 Aspartate Amino Transf (AST/SGOT) 19 U/L (15-37) 03/22/24 12:58 Coagulation Panel: No Data to Display Cardiac Panel: No Data to Display Arterial Blood Gas: No Data to Display Venous Blood Gas: No Data to Display Pancreas Panel: No Data to Display Thyroid Panel: No Data to Display Infectious Disease: No Data to Display Blood Cultures: No Data to Display Toxicology Panel: No Data to Display Imaging and Studies Imaging and Studies Study information below may be from another EMR and interpreted by another provider. Please see original notes in EMR for more complete details. Echocardiogram Summary: 12/10/2023: EF 34%, RV normal size, LA severe dilation, Moderate to Severe MR, Mild to Mod TR, PASP 43, MR worsened, other findings similar to previous echo. CT Summary: 05/09/2023: IMPRESSION: 1. Atherosclerosis. 2. 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 3. 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 4. Filling defects seen in vessels in the lower lobes of the lungs consistent with pulmonary emboli. A pulmonary embolus CT scan of the chest is requested for further evaluation. 5. 1.9 x 2.2 cm cyst in the tail of the pancreas. MRI is recommended for further evaluation. 6. Findings were discussed with Dr. Raymond Maharaj of the emergency department at 5:20 p.m. on 05/09/2023. Anesthesia Assessment and Plan Anesthesia History Personal History: No History of Anesthesia Complications Family History: No Family History of Anesthesia Complications Exercise Tolerance Exercise Tolerance: Metabolic Equivalents<4 Pertinent Negatives Pertinent Negatives: No Major Cardiovascular Symptoms or Complaints and No Major Pulmonary Symptoms or Complaints Cardiac & Pulmonary Exam Cardiac Exam: Normal S1/S2 Heart Sounds Pulmonary Exam: Clear Bilateral Breath Sounds Implantable Cardiac Device Does patient have a Pacemaker or an ICD?: No Airway Exam Known Difficult Airway: No Mallampati Class: 1 Mouth Opening: Normal (> 3cm) Thyromental Distance: Greater than 3 cm Neck Range of Motion: Full ROM Neck Circumference: Normal Teeth Condition: Edentulous ASA Classification ASA Score: ASA 3 Emergency Case?: No NPO Status NPO Status: NPO Clears >2 hours, Solids >8 hours Anesthesia Plan Resuscitation Status: Full Code Anesthesia Technique: MAC Anesthesia Airway Planned: Natural Airway Monitors Used: Standard Monitors Preoperative Comments:: Blood sugar at home 140 stated by patient
[2024-04-19 07:25] VITALS: BMI 25.1
[2024-04-19] MEDS: ceFAZolin 2 GM/50 ML BAG IVPB (08:10)
[2024-04-19] MEDS: Lidocaine 1% Pres-Free 30 ML VIAL (08:13)
[2024-04-19 08:54] VITALS: BP 131/71; PULSE 68; RESP 17; TEMP 36.1; O2SAT 97
--- NOTE | 2024-04-19 08:57 | W.PM.DSUDISC ---
Date of service: 04/19/24 Time of Service: 08:00 Discharge Plan Disposition Patient Disposition: Home Discharge Details Attending Provider: Danyelle Lara Primary Care Provider: Marko Stevens Home Meds and New Rx's Prescriptions: No Action aspirin 81 mg tablet,delayed release (DR/EC) 81 mg PO DAILY atorvastatin 80 mg tablet 80 mg PO DAILY (DME) Dexcom G7 Sensor Device See Rx Instructions .Route Rx Instructions: As directed fenofibrate 160 mg tablet 160 mg PO DAILY insulin aspart U-100 [Novolog FlexPen U-100 Insulin] 100 unit/mL (3 mL) insulin pen See Rx Instructions subcut TID Rx Instructions: subcutaneously three times a day; Eliquis 5 mg tablet 5 mg PO BID furosemide 20 mg tablet 20 mg PO DAILY PRN Gvoke HypoPen 1-Pack 0.5 mg/0.1 mL auto-injector 1 mg subcut ONCE Rx Instructions: as a single dose; may repeat once after 15 minutes if no response haloperidol lactate 2 mg/mL concentrate See Rx Instructions PO .COMPLEX Rx Instructions: orally; dosing not provided by PCP loperamide 2 mg capsule 2 mg PO Q4H PRN Rx Instructions: administer after each loose stool until symptoms controlled; do not exceed 8 mg per 24 hrs mirtazapine 7.5 mg tablet 7.5 mg PO QHS pantoprazole 40 mg tablet,delayed release (DR/EC) 40 mg PO DAILY potassium chloride 20 mEq tablet extended release 20 meq PO DAILY Patient Comments: pt doesn't take anymore torsemide 20 mg tablet 40 mg PO DAILY ciprofloxacin HCl 500 mg tablet 500 mg PO BID Qty: 14 0RF nutritional supplements Powder See Rx Instructions PO .QD 90 Days Qty: 30 2RF Rx Instructions: 1 packet with 8 oz of water orally QD; Placido - therapeutic nutrition powder for wound healing of chronic ulcers. Pt with low serum albumin levels. sulfamethoxazole-trimethoprim [Bactrim DS] 800-160 mg tablet 1 tab PO BID 14 Days Qty: 28 0RF insulin glargine [Basaglar KwikPen U-100 Insulin] 100 unit/mL (3 mL) insulin pen 56 unit subcut QAM insulin glargine [Basaglar KwikPen U-100 Insulin] 100 unit/mL (3 mL) insulin pen 38 unit subcut QPM albuterol sulfate 90 mcg/actuation HFA aerosol inhaler 2 puff inhalation Q4H PRN haloperidol lactate 2 mg/mL concentrate 0.5 mg PO Q6H PRN Rx Instructions: 0.25-0.50 ml q6h N/v bismuth subsalicylate 525 mg/15 mL suspension 1,050 mg PO DAILY PRN Rx Instructions: for diarrhea acetaminophen 500 mg capsule 1,000 mg PO TID PRN hydrocodone-acetaminophen 5-325 mg tablet 1 tab PO DIRECTED Patient Comments: TAKE 1 TABLET BY MOUTH TWICE DAILY NEEDED FOR PAIN sacubitril-valsartan [Entresto] 1 cap PO DAILY Patient Comments: per patient just started for heart valve metoprolol succinate 12.5 cap PO DAILY Discharge Instructions Additional Instructions: Please keep your dressings clean, dry and intact. Keep your heels floating at all times. Continue antibiotics Stand Alone Forms: Podiatry Instructions-DSU Activity:: Elevate Remove Dressings/Wound Care:: Do Not Remove Shower/Bathe:: Cover Diet:: Other Discharge Orders Discharge Orders: Discharge Order (Routine); Ordered 04/19/24 Ordered By: Danyelle Lara DS: Diagnosis Discharge Diagnosis (1) Chronic ulcer of left heel with fat layer exposed: Status: Acute (2) Osteomyelitis of left ankle: Status: Acute (3) Ischemic ulcer of right heel: Status: Acute (4) Ischemic ulcer of left heel: Status: Acute (5) Ulcer of right heel: Status: Acute (6) Ulcer of left heel: Status: Acute
--- NOTE | 2024-04-19 09:07 | ROE_ITS ---
Date of service: 04/19/24 Time of Service: 08:00 Operative Note Operative Note DATE OF PROCEDURE: 04/19/24 PRE-OP DIAGNOSIS: Full-thickness ulcer, left heel with necrosis of bone. Full- thickness ulcer, right heel including subcutaneous tissue POST-OP DIAGNOSIS: same PROCEDURE: Excisional debridement using Versajet, bilateral heels including subcutaneous tissue SURGEON: Danyelle Lara ANESTHESIA TYPE: Local By Surgeon (20 mL 1% lidocaine plain preoperatively) Refer to Anesthesia Record ESTIMATED BLOOD LOSS: 2 PATHOLOGY: none sent COMPLICATIONS: None Patient was transported to: same day Patient's condition: stable Indications: This is a 53-year-old male patient with bilateral heel ulcers currently on antibiotics here for excisional wound debridement bilateral heels to allow the ulcers to heal by removal of all necrotic, nonviable tissue. I discussed the procedure in detail with the patient including all the risks, benefits and possible complications including but not limited to pain, nerve pain, bleeding, delayed healing, nonhealing, need for further surgery or amputation, worsening infection, DVT, PE, stroke, TN or . Patient consented to the procedure. No guarantees or warranties were made or implied. Findings: Left heel wound measurements: 4.4 x 3.5 cm ulceration with 5 cm deep probe to bone from a proximal to distal direction. There is Achilles tendon exposed at this time, the wound bed post debridement is healthy and gland granular, no periwound erythema noted there is edema noted there is no crepitus, no fluctuance no proximal streaking, no active purulence noted. Right heel wound measurements: 2.0 x 0.5 x 0.3 cm, post debridement, the wound bed is 100% granular base, borders are normal-appearing, there is no periwound erythema noted there is mild edema noted no active drainage or purulence or proximal streaking or lymphangitis Procedure Description: Patient was identified in preop holding. Site was marked. Patient was then brought to the operating room placed in supine position with the anesthesia team. After induction of anesthesia, local and all esthesia was obtained about the heels using 20 mL of 1% lidocaine plain preoperatively. Both feet were then scrubbed, prepped and draped in the usual aseptic manner. Timeout was carried out. Attention was directed to the right heel first toe where a ulcer was noted measuring approximately 2.0 x 0.5 x 0.3 cm, the base was 100% necrotic predebridement. Versajet was used to excisionally debride all necrotic, nonviable tissue including subcutaneous tissue. Healthy bleeding tissue was noted. The procedure was then noted to be complete. Attention was directed to the left heel where a full-thickness ulceration was noted with Achilles tendon exposed, using the Versajet all the necrotic, nonviable tissue was debrided including subcutaneous tissue and a small amount of the Achilles tendon until a healthy bleeding base was achieved. Dressings were then applied with Xeroform gauze, 4 x 4, Kerlix and an Mike wrap to the right foot. To the left heel, dressings were applied with packing gauze, 4 x 4, Kerlix and Coban for compression. Patient tolerated the procedure and anesthesia well vital signs stable and vascular status intact to the left lower extremity. Patient was transferred to PACU for further monitoring. He will be discharged home when stable. Patient has appointment with me on for follow-up. I discussed with the patient that the ulcer although appears healthier looking than before, it does probe deeper at this time. If this does not heal soon, this may progress to a partial calcanectomy versus below the knee amputation. Patient is to continue to take antibiotics. He has an appointment with infectious disease scheduled as well.
--- NOTE | 2024-04-19 09:18 | W.ANESPOSTOP ---
Postoperative Evaluation Date, Time and Location Date Performed: 04/19/24 Time Performed: 08:54 Patient Location: Day Surgery Unit Vital Signs Most Recent Imported Vital Signs: Most Recent Vital Signs Temp Pulse Resp BP Pulse Ox 36.1 C L 68 17 131/71 97 04/19/24 08:54 04/19/24 08:54 04/19/24 08:54 04/19/24 08:54 04/19/24 08:54 Pain Score Most Recent Pain Score: Most Recent Pain Score Pain Level 8 04/19/24 06:40 Assessment Mental Status: Awake (Alert & Oriented to Patient Baseline) Airway and Respiratory Function: Patent airway with normal (patient baseline) respiratory exam Cardiovascular Function: Hemodynamically Stable Hydration Status: Adequately Hydrated Nausea & Vomiting: No Nausea or Vomiting Pain: Pt. Denies Any Pain Peripheral Nerve Block: Patient did not receive a nerve block
[2024-04-19 09:32] VITALS: BP 136/70; PULSE 68; RESP 20; TEMP 36.5; O2SAT 68
== END 2024-04-19 10:17 | disposition home or self-care (01) ==
PROVIDERS: PCP Family Medicine; Visit Provider Podiatrist
PROC: (CPT 11043; principal; 2024-04-19 07:30)
DX: L97.424 Non-pressure chronic ulcer of left heel and midfoot with necrosis of bone (principal); L97.412 Non-pressure chronic ulcer of right heel and midfoot with fat layer exposed; E11.9 Type 2 diabetes mellitus without complications; Z79.4 Long term (current) use of insulin; I25.10 Atherosclerotic heart disease of native coronary artery without angina pectoris; F17.210 Nicotine dependence, cigarettes, uncomplicated
CPT/HCPCS: 11043; 11042; 00123; J0690; J2250; J2405

== ENCOUNTER 2024-04-26 07:03 | Day surgery (SDC) | payer MEDICAID, SELFPAY ==
--- NOTE | 2024-04-26 | DI.RAD_ITS ---
Exam(s) XR HEEL LT OS CALCIS EXAM: XR HEEL LT OS CALCIS CLINICAL HISTORY: Osteomyelitis heel. TECHNIQUE: 2D digital imaging was performed. COMPARISON: CR XR HEEL LT OS CALCIS from 03/22/2024 FINDINGS: Two views-lateral and Cavazos axial view: There is now a drainage device over the posterior heel ulcer region. There is calcification at the i nsertional aspect of the Achilles tendon as well as within the plantar fascia again evident head. Th ere is subtle irregularity on the posterior aspect of the calcaneus but without obvious 2 cortical lo ss. In addition, there is some gas in the soft tissues subjacent to the calcaneus now evident. IMPRESSION: As above. Cannot exclude subtle osteomyelitis. Consider MRI for added sensitivity/specificity. DATA REPOSITORY: RADIATION DOSE DELIVERED:
[2024-04-26 07:26] VITALS: BP 166/71; PULSE 71; RESP 16; TEMP 36.1; O2SAT 100
[2024-04-26] MEDS: Normal Saline Flush 10 ML SYR IV (07:42)
--- NOTE | 2024-04-26 07:58 | W.PREOPHP ---
Assessment and Plan Assessment and plan (1) Chronic ulcer of left heel with fat layer exposed: Status: Acute (2) Osteomyelitis of left ankle: Status: Acute (3) Chronic kidney disease, stage 3a: Status: Acute (4) Atherosclerotic PVD with ulceration: Status: Acute (5) Ischemic ulcer of right heel: Status: Acute (6) Ischemic ulcer of left heel: Status: Acute (7) Ulcer of right heel: Status: Acute (8) Ulcer of left heel: Status: Acute Assessment and plan: Patient was seen and examined. In no acute distress. Has ulcers bilateral lower heels. Cleared for surgery. History of Present Illness Narrative: 53-year-old diabetic male patient with uncontrolled diabetes here for bilateral heel ulcer debridement. Patient denies any changes to his medical history. Reports less drainage from the wounds. Review of Systems Constitutional Constitutional: Denies body ache(s), Denies chills, Denies difficulty sleeping, Denies excessive sweating and Denies night sweats Cardiovascular Cardiovascular: Reports pedal edema (Left foot swelling) and Denies claudication Integumentary/Breasts Skin/Breast: Reports skin ulcer (Ulcer bilateral heels) Neurologic Comments: Neuropathy bilateral lower extremity Endocrine Endocrine: Denies excessive sweating PFSH All Active Problems Chronic ulcer of left heel with fat layer exposed (Acute) Osteomyelitis of left ankle (Acute) Chronic kidney disease, stage 3a (Acute) Atherosclerotic PVD with ulceration (Acute) Ischemic ulcer of right heel (Acute) Ischemic ulcer of left heel (Acute) Ulcer of right heel (Acute) Ulcer of left heel (Acute) Heart failure with reduced ejection fraction (Acute) 35%; worsened moderate to severe regurg; mitral regurg worsened 12/2023 ([facility]) Mitral valve regurgitation (Chronic) Hyperglycemia due to type 2 diabetes mellitus (Acute) Diabetes (Chronic) 08/07/05 Smoker (Acute) Peripheral neuropathy (Acute) Chronic ulcer of right foot (Acute) Ulcer of right foot with fat layer exposed (Acute) Cellulitis (Acute) PVD (peripheral vascular disease) (Chronic) Osteomyelitis of right foot (Acute) Pain in left foot (Acute) Diabetic foot ulcer (Acute) Snoring (Acute) Nicotine dependence (Acute) Lumbosacral radiculopathy (Acute) Lumbar spondylosis (Acute) Hypertension (Chronic) Hyperlipidemia (Acute) Diabetic neuropathy (Acute) Depressive disorder (Chronic) Atherosclerosis of coronary artery (Acute) Medical History Acute kidney injury contrast-induced (12/2023) Hx of pulmonary embolus Protein calorie malnutrition Prolapsed lumbosacral intervertebral disc 04/23/2011 Acute [place] x3 Surgical History Hx of cataract surgery History of carpal tunnel release H/O heart artery stent x 9, last in 2017 History of spinal fusion x3 Family History Sister Diabetes Amputation of lower limb Mother Diabetes Social History Smoking/Tobacco Use Status: Current every day Tobacco Type: cigarettes Smoking risk assessment performed?: Yes Alcohol Intake: never Drug use: Never Substance use type: does not use Details: Patient smoked 2 cigarettes today. Housing: apartment Do you feel safe at home: Yes Do you feel safe in your relationship?: Yes Additional Social history: Lives with in [place]. 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 and Home Medications Allergies Allergy/AdvReac Type Severity Reaction Status Date / Time codeine Allergy rash, Verified 04/26/24 07:22 cortisone Allergy urticaria Verified 04/26/24 07:22 Home Medications ?Medication ?Instructions ?Recorded ?Confirmed ?Type aspirin 81 mg tablet,delayed 81 mg PO DAILY 04/27/23 04/26/24 History release atorvastatin 80 mg tablet 80 mg PO DAILY 04/27/23 04/26/24 History blood-glucose sensor (Dexcom G7 04/27/23 04/15/24 History Sensor device) fenofibrate 160 mg tablet 160 mg PO DAILY 04/27/23 04/26/24 History insulin aspart U-100 100 unit/mL See Rx Instructions subcut TID 04/27/23 04/26/24 History (3 mL) subcutaneous pen (Novolog FlexPen U-100 Insulin aspart) apixaban 5 mg tablet (Eliquis) 5 mg PO BID 12/17/23 04/26/24 History furosemide 20 mg tablet 20 mg PO DAILY PRN 02/17/24 04/26/24 History glucagon 0.5 mg/0.1 mL 1 mg subcut ONCE 02/17/24 04/26/24 History subcutaneous auto-injector (Gvoke HypoPen 1-Pack) haloperidol lactate 2 mg/mL oral See Rx Instructions PO .COMPLEX 02/17/24 04/26/24 History concentrate loperamide 2 mg capsule 2 mg PO Q4H PRN 02/17/24 04/21/24 History mirtazapine 7.5 mg tablet 7.5 mg PO QHS 02/17/24 04/21/24 History pantoprazole 40 mg tablet,delayed 40 mg PO DAILY 02/17/24 04/26/24 History release potassium chloride 20 mEq 20 meq PO DAILY 02/17/24 04/21/24 History tablet,extended release torsemide 20 mg tablet 40 mg PO DAILY 02/17/24 04/26/24 History acetaminophen 500 mg capsule 1,000 mg PO TID PRN 02/23/24 04/21/24 History albuterol sulfate 90 mcg/actuation 2 puff inhalation Q4H PRN 02/23/24 04/26/24 History aerosol inhaler bismuth subsalicylate 525 mg/15 mL 1,050 mg PO DAILY PRN 02/23/24 04/21/24 History oral suspension haloperidol lactate 2 mg/mL oral 0.5 mg PO Q6H PRN 02/23/24 04/21/24 History concentrate insulin glargine 100 unit/mL (3 38 unit subcut QPM 02/23/24 04/21/24 History mL) subcutaneous pen (Basaglar KwikPen U-100 Insulin) insulin glargine 100 unit/mL (3 56 unit subcut QAM 02/23/24 04/21/24 History mL) subcutaneous pen (Basaglar KwikPen U-100 Insulin) metoprolol succinate 12.5 cap PO DAILY 03/22/24 04/26/24 History sacubitril-valsartan 1 cap PO DAILY 03/22/24 04/26/24 History hydrocodone 5 mg-acetaminophen 325 1 tab PO DIRECTED 04/08/24 04/26/24 History mg tablet ciprofloxacin HCl 500 mg tablet 500 mg PO BID #14 tabs 04/12/24 04/21/24 Rx nutritional supplements See Rx Instructions PO .QD 3 04/12/24 04/21/24 Rx months #30 packets sulfamethoxazole 800 1 tab PO BID 14 days #28 tabs 04/15/24 04/26/24 Rx mg-trimethoprim 160 mg tablet (Bactrim DS) Exam Resp Effort & Inspection: normal respiratory effort and able to speak in complete sentences Auscultation: clear to auscultation bilaterally Cardio Rate: regular rate Rhythm: regular rhythm Heart Sounds: S1 normal and S2 normal Pulses: dorsalis pedis present Results Last Vital Signs Temp 97.0 F L 04/26/24 07:26 Pulse 71 04/26/24 07:26 Resp 16 04/26/24 07:26 BP 166/71 H 04/26/24 07:26 Pulse Ox 100 04/26/24 07:26
--- NOTE | 2024-04-26 08:03 | ANES.PREOP_ITS ---
"General Info Date of Service Date Performed: 04/26/24 Height: 5 ft 8 in Weight: 77 kg Body Mass Index (BMI): 25.8 Surgical Procedure: Operation Date: 04/26/24 08:40 Proposed Procedure Side Surgeon p Excisional Wound Debridement of Bi-Lat Heels/ Wound VAC Placement-LT Heel Bilateral Danyelle Lara DPM 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 and Home Medications Allergies Allergy/AdvReac Type Severity Reaction Status Date / Time codeine Allergy rash, Verified 04/26/24 07:22 cortisone Allergy urticaria Verified 04/26/24 07:22 Home Medication ?Medication ?Instructions ?Recorded aspirin 81 mg tablet,delayed 81 mg PO DAILY 04/27/23 release atorvastatin 80 mg tablet 80 mg PO DAILY 04/27/23 blood-glucose sensor (Multimedia Plus | QuizScore G7 04/27/23 Sensor device) fenofibrate 160 mg tablet 160 mg PO DAILY 04/27/23 insulin aspart U-100 100 unit/mL See Rx Instructions subcut TID 04/27/23 (3 mL) subcutaneous pen (Novolog FlexPen U-100 Insulin aspart) apixaban 5 mg tablet (Eliquis) 5 mg PO BID 12/17/23 furosemide 20 mg tablet 20 mg PO DAILY PRN 02/17/24 glucagon 0.5 mg/0.1 mL 1 mg subcut ONCE 02/17/24 subcutaneous auto-injector (Gvoke HypoPen 1-Pack) haloperidol lactate 2 mg/mL oral See Rx Instructions PO .COMPLEX 02/17/24 concentrate loperamide 2 mg capsule 2 mg PO Q4H PRN 02/17/24 mirtazapine 7.5 mg tablet 7.5 mg PO QHS 02/17/24 pantoprazole 40 mg tablet,delayed 40 mg PO DAILY 02/17/24 release potassium chloride 20 mEq 20 meq PO DAILY 02/17/24 tablet,extended release torsemide 20 mg tablet 40 mg PO DAILY 02/17/24 acetaminophen 500 mg capsule 1,000 mg PO TID PRN 02/23/24 albuterol sulfate 90 mcg/actuation 2 puff inhalation Q4H PRN 02/23/24 aerosol inhaler bismuth subsalicylate 525 mg/15 mL 1,050 mg PO DAILY PRN 02/23/24 oral suspension haloperidol lactate 2 mg/mL oral 0.5 mg PO Q6H PRN 02/23/24 concentrate insulin glargine 100 unit/mL (3 38 unit subcut QPM 02/23/24 mL) subcutaneous pen (Basaglar KwikPen U-100 Insulin) insulin glargine 100 unit/mL (3 56 unit subcut QAM 02/23/24 mL) subcutaneous pen (Basaglar KwikPen U-100 Insulin) metoprolol succinate 12.5 cap PO DAILY 03/22/24 sacubitril-valsartan 1 cap PO DAILY 03/22/24 hydrocodone 5 mg-acetaminophen 325 1 tab PO DIRECTED 04/08/24 mg tablet ciprofloxacin HCl 500 mg tablet 500 mg PO BID #14 tabs 04/12/24 nutritional supplements See Rx Instructions PO .QD 3 04/12/24 months #30 packets sulfamethoxazole 800 1 tab PO BID 14 days #28 tabs 04/15/24 mg-trimethoprim 160 mg tablet (Bactrim DS) Current Visit Medications: Current Medications Generic Name Dose Route Start Last Admin Trade Name Freq PRN Reason Stop Dose Admin Cefazolin Sodium/Dextrose 2 gm in 50 mls @ 100 mls/hr 04/26/24 06:00 Ancef Duplex IVPB 04/26/24 23:59 PREOP BURT IV Miscellaneous Supplies 1 each 04/26/24 06:00 Iv Access IV 04/26/24 23:59 DIRECTED BURT Sodium Chloride 0 ml 04/26/24 06:00 04/26/24 07:42 Normal Saline Flush 10 Ml Syr IV 04/26/24 23:59 10 ml PRN PRN Administration Sodium Chloride 0 ml 04/26/24 06:00 Normal Saline 10 Ml Vial IJ 04/26/24 23:59 DIRECTED PRN Sterile Water 0 ml 04/26/24 06:00 Water,Injection,Sterile 10 Ml Vial IJ 04/26/24 23:59 DIRECTED PRN PFSH Active Problems Active Problems: Problem Status Onset Code Chronic ulcer of left heel with fat layer exposed Acute L97.422 Osteomyelitis of left ankle Acute M86.9 Chronic kidney disease, stage 3a Acute N18.31 Atherosclerotic PVD with ulceration Acute I70.209, L98.499 Ischemic ulcer of right heel Acute L97.419 Ischemic ulcer of left heel Acute L97.429 Ulcer of right heel Acute L97.419 Ulcer of left heel Acute L97.429 Heart failure with reduced ejection fraction Acute I50.20 Mitral valve regurgitation Chronic I34.0 Hyperglycemia due to type 2 diabetes mellitus Acute E11.65 Diabetes Chronic E11.9 Smoker Acute F17.200 Peripheral neuropathy Acute G62.9 Chronic ulcer of right foot Acute L97.519 Ulcer of right foot with fat layer exposed Acute L97.512 Cellulitis Acute L03.90 PVD (peripheral vascular disease) Chronic I73.9 Osteomyelitis of right foot Acute M86.9 Pain in left foot Acute M79.672 Diabetic foot ulcer Acute E11.621, L97.509 Snoring Acute R06.83 Nicotine dependence Acute F17.200 Lumbosacral radiculopathy Acute M54.17 Lumbar spondylosis Acute M47.816 Hypertension Chronic I10 Hyperlipidemia Acute E78.5 Diabetic neuropathy Acute E11.40 Depressive disorder Chronic F32.A Atherosclerosis of coronary artery Acute I25.10 Medical History Medical History Acute kidney injury contrast-induced (12/2023) Hx of pulmonary embolus Protein calorie malnutrition Prolapsed lumbosacral intervertebral disc 04/23/2011 Acute [place] x3 Surgical History Surgical History Hx of cataract surgery History of carpal tunnel release H/O heart artery stent x 9, last in 2017 History of spinal fusion x3 Tobacco Smoking/Tobacco Use Status: Current every day Tobacco Type: cigarettes Alcohol Alcohol Intake: never Substance Use Substance use: Never Substance use type: does not use Details: Patient smoked 2 cigarettes today. Vital Signs and Lab Results Vital Signs Most Recent Vital Signs in EMR: Most Recent Vital Signs Temp Pulse Resp BP Pulse Ox 36.1 C L 71 16 166/71 H 100 04/26/24 07:26 04/26/24 07:26 04/26/24 07:26 04/26/24 07:26 04/26/24 07:26 Point of Care Results Point of Care Results: Finger Stick Blood Glucose 294 04/26/24 07:38 Lab Results Blood Type / Crossmatch: No Data to Display Complete Blood Count: No Data to Display Complete Metabolic Panel: No Data to Display Liver Function Panel: No Data to Display Coagulation Panel: No Data to Display Cardiac Panel: No Data to Display Arterial Blood Gas: No Data to Display Venous Blood Gas: No Data to Display Pancreas Panel: No Data to Display Thyroid Panel: No Data to Display Infectious Disease: No Data to Display Blood Cultures: No Data to Display Toxicology Panel: No Data to Display Imaging and Studies Imaging and Studies Study information below may be from another EMR and interpreted by another provider. Please see original notes in EMR for more complete details. Echocardiogram Summary: 12/10/2023: EF 34%, RV normal size, LA severe dilation, Moderate to Severe MR, Mild to Mod TR, PASP 43, MR worsened, other findings similar to previous echo. CT Summary: 05/09/2023: IMPRESSION: 1. Atherosclerosis. 2. 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 3. 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 4. Filling defects seen in vessels in the lower lobes of the lungs consistent with pulmonary emboli. A pulmonary embolus CT scan of the chest is requested for further evaluation. 5. 1.9 x 2.2 cm cyst in the tail of the pancreas. MRI is recommended for further evaluation. 6. Findings were discussed with Dr. Raymond Maharaj of the emergency department at 5:20 p.m. on 05/09/2023. Anesthesia Assessment and Plan Anesthesia History Personal History: No History of Anesthesia Complications Family History: No Family History of Anesthesia Complications Exercise Tolerance Exercise Tolerance: Metabolic Equivalents<4 Pertinent Negatives Pertinent Negatives: No Symptoms of GERD, No Major Pulmonary Symptoms or Complaints and No History of CVA/TIA Cardiac & Pulmonary Exam Cardiac Exam: Normal S1/S2 Heart Sounds Pulmonary Exam: Clear Bilateral Breath Sounds Implantable Cardiac Device Does patient have a Pacemaker or an ICD?: No Airway Exam Known Difficult Airway: No Mallampati Class: 1 Mouth Opening: Normal (> 3cm) Thyromental Distance: Greater than 3 cm Neck Range of Motion: Full ROM Neck Circumference: Normal Teeth Condition: Edentulous ASA Classification ASA Score: ASA 3 Emergency Case?: No NPO Status NPO Status: NPO Clears >2 hours, Solids >8 hours Anesthesia Plan Resuscitation Status: Full Code Anesthesia Technique: MAC Anesthesia Airway Planned: Natural Airway Monitors Used: Standard Monitors"
[2024-04-26 08:18] VITALS: BMI 25.8
[2024-04-26] MEDS: ceFAZolin 2 GM/50 ML BAG IVPB (08:28)
[2024-04-26] MEDS: Lidocaine 1% Pres-Free 30 ML VIAL (08:49)
[2024-04-26 09:18] VITALS: BP 149/72; PULSE 70; RESP 13; TEMP 36.6; O2SAT 98
--- NOTE | 2024-04-26 09:28 | W.PM.DSUDISC ---
Date of service: 04/26/24 Time of Service: 07:45 Discharge Plan Disposition Patient Disposition: Home Condition: Stable Discharge Details Attending Provider: Danyelle Lara Primary Care Provider: Marko Stevens Home Meds and New Rx's Prescriptions: No Action aspirin 81 mg tablet,delayed release (DR/EC) 81 mg PO DAILY atorvastatin 80 mg tablet 80 mg PO DAILY (DME) Dexcom G7 Sensor Device See Rx Instructions .Route Rx Instructions: As directed fenofibrate 160 mg tablet 160 mg PO DAILY insulin aspart U-100 [Novolog FlexPen U-100 Insulin] 100 unit/mL (3 mL) insulin pen See Rx Instructions subcut TID Rx Instructions: subcutaneously three times a day; Eliquis 5 mg tablet 5 mg PO BID furosemide 20 mg tablet 20 mg PO DAILY PRN Gvoke HypoPen 1-Pack 0.5 mg/0.1 mL auto-injector 1 mg subcut ONCE Rx Instructions: as a single dose; may repeat once after 15 minutes if no response haloperidol lactate 2 mg/mL concentrate See Rx Instructions PO .COMPLEX Rx Instructions: orally; dosing not provided by PCP loperamide 2 mg capsule 2 mg PO Q4H PRN Rx Instructions: administer after each loose stool until symptoms controlled; do not exceed 8 mg per 24 hrs mirtazapine 7.5 mg tablet 7.5 mg PO QHS pantoprazole 40 mg tablet,delayed release (DR/EC) 40 mg PO DAILY potassium chloride 20 mEq tablet extended release 20 meq PO DAILY Patient Comments: pt doesn't take anymore torsemide 20 mg tablet 40 mg PO DAILY ciprofloxacin HCl 500 mg tablet 500 mg PO BID Qty: 14 0RF nutritional supplements Powder See Rx Instructions PO .QD 90 Days Qty: 30 2RF Rx Instructions: 1 packet with 8 oz of water orally QD; Placido - therapeutic nutrition powder for wound healing of chronic ulcers. Pt with low serum albumin levels. sulfamethoxazole-trimethoprim [Bactrim DS] 800-160 mg tablet 1 tab PO BID 14 Days Qty: 28 0RF insulin glargine [Basaglar KwikPen U-100 Insulin] 100 unit/mL (3 mL) insulin pen 56 unit subcut QAM insulin glargine [Basaglar KwikPen U-100 Insulin] 100 unit/mL (3 mL) insulin pen 38 unit subcut QPM albuterol sulfate 90 mcg/actuation HFA aerosol inhaler 2 puff inhalation Q4H PRN haloperidol lactate 2 mg/mL concentrate 0.5 mg PO Q6H PRN Rx Instructions: 0.25-0.50 ml q6h N/v bismuth subsalicylate 525 mg/15 mL suspension 1,050 mg PO DAILY PRN Rx Instructions: for diarrhea acetaminophen 500 mg capsule 1,000 mg PO TID PRN hydrocodone-acetaminophen 5-325 mg tablet 1 tab PO DIRECTED Patient Comments: TAKE 1 TABLET BY MOUTH TWICE DAILY NEEDED FOR PAIN sacubitril-valsartan [Entresto] 1 cap PO DAILY Patient Comments: per patient just started for heart valve metoprolol succinate 12.5 cap PO DAILY Discharge Instructions Additional Instructions: Please keep your dressings clean, dry and intact. Do not let the dressings get wet. Please keep your heals floating at all times. Stand Alone Forms: Anesthesia Discharge Inst., Podiatry Instructions-DSU, Demetrius Tran (DSU) Activity:: Elevate Remove Dressings/Wound Care:: Do Not Remove Shower/Bathe:: Cover Diet:: Carb Counting Discharge Orders Discharge Orders: Discharge Order (Routine); Ordered 04/26/24 Ordered By: Danyelle Lara DS: Diagnosis Discharge Diagnosis (1) Chronic ulcer of left heel with fat layer exposed: Status: Acute (2) Osteomyelitis of left ankle: Status: Acute (3) Chronic kidney disease, stage 3a: Status: Acute (4) Atherosclerotic PVD with ulceration: Status: Acute (5) Ischemic ulcer of right heel: Status: Acute (6) Ischemic ulcer of left heel: Status: Acute (7) Ulcer of right heel: Status: Acute (8) Ulcer of left heel: Status: Acute
[2024-04-26 09:48] LABS: Abs Immature Grans 0.04 10^3/uL (0.0-0.06); Absolute Basophil Count 0.13 10^3/uL (0.0-0.2); Absolute Eosinophil Count 0.16 10^3/uL (0.0-0.7); Absolute Lymphocyte Count 2.52 10^3/uL (1.2-3.4); Absolute Monocyte Count 0.64 10^3/uL (0.1-0.8); Basophils % 1.2 %; Eosinophils % 1.4 %; HCT 35.9 % (40.0-50.0); HGB 11.4 g/dL (13.5-17.5); Immature Grans % 0.4 %; Lymphocytes % 22.7 %; MCH 29.8 pg (27.0-33.0); MCHC 31.8 % (32.0-36.0); MCV 94 fL (80-95); MPV 11.1 fL (8.0-11.0); Monocytes % 5.8 %; Neutrophils % 68.5 %; Platelet Count 273 10^3/uL (130-400); RBC 3.83 10^6/uL (4.36-5.78); RDW 15.3 % (11.8-14.1); RDW-SD 52.2 fL; WBC 11.11 10^3/uL (4.4-10.8)
[2024-04-26 09:49] LABS: Absolute Neutrophil Count 7.61 10^3/uL (1.2-6.7)
[2024-04-26 09:53] LABS: ESR 26 mm/hr (0-20)
[2024-04-26 09:54] VITALS: BP 144/69; PULSE 61; RESP 12; TEMP 36.4; O2SAT 100
--- NOTE | 2024-04-26 10:01 | W.ANESPOSTOP ---
Postoperative Evaluation Date, Time and Location Date Performed: 04/26/24 Time Performed: 09:20 Patient Location: Day Surgery Unit Vital Signs Most Recent Imported Vital Signs: Most Recent Vital Signs Temp Pulse Resp BP Pulse Ox 36.4 C L 61 12 144/69 H 100 04/26/24 09:54 04/26/24 09:54 04/26/24 09:54 04/26/24 09:54 04/26/24 09:54 Pain Score Most Recent Pain Score: Most Recent Pain Score Pain Level 0 04/26/24 09:54 Assessment Mental Status: Awake (Alert & Oriented to Patient Baseline) Airway and Respiratory Function: Patent airway with normal (patient baseline) respiratory exam Cardiovascular Function: Hemodynamically Stable Hydration Status: Adequately Hydrated Nausea & Vomiting: No Nausea or Vomiting Pain: Pt. Denies Any Pain Peripheral Nerve Block: Patient did not receive a nerve block
[2024-04-26 10:03] LABS: C-Reactive Protein < 0.50 mg/dL (<or=0.5)
--- NOTE | 2024-04-26 10:14 | W.PM.OP ---
Operative Note Operative Note PRE-OP DIAGNOSIS: Full thickness, diabetic, neuropathic ulcer bilat heels. POST-OP DIAGNOSIS: same PROCEDURE: Excisional wound debridement, bilateral heels SURGEON: Danyelle Lara ANESTHESIA TYPE: Local By Surgeon (10 mL 1% lidocaine plain preoperatively) Refer to Anesthesia Record ESTIMATED BLOOD LOSS: 1 PATHOLOGY: none sent COMPLICATIONS: None Patient was transported to: same day Patient's condition: stable Indications: 53-year-old diabetic male patient with bilateral heel wounds here for serial excisional wound debridement. Findings: Improvement noted to the heel ulcers bilaterally. Right heel wound: Measurements are 0.6 x 0.4 x 0.3 cm, the base is 100% necrotic predebridement, postdebridement 100% granular with healthy bleeding granular base, borders are slightly hyperkeratotic without any periwound erythema, edema drainage or malodor. Left heel wound measurements postdebridement are: 4.0 x 4.0 x 4.5 cm deep at the plantar direction. Base of the wound is 100% granular predebridement, postdebridement the base is granular with healthy bleeding base, there is 4.5 cm deep tunneling noted in the plantar direction. Macerated borders, no erythema however, no fluctuance no bogginess no crepitus. Left foot is edematous. No probe to bone or capsule Pre-debridement images above Procedure Description: Patient was identified in preop holding. Site was marked. Patient was then brought to the operating room placed on the operating table in supine position with the anesthesia team. After induction of anesthesia, the heels were then injected with 10 mL lidocaine plain 1% total bilaterally. Bilateral lower extremity were then scrubbed, prepped and draped in the usual aseptic manner. Attention was then directed to the lateral aspect of the right heel where a full-thickness ulceration was noted with a 100% necrotic base. Using a sterile #15 blade the right heel ulcer was excisionally debrided of all necrotic, nonviable tissue including subcutaneous tissue which was then passed from the operative field. Healthy bleeding base was noted. Dressings were then applied with Xeroform, 4 x 4, Kerlix and an Mike wrap. Attention was then directed to the posterior aspect of the left heel where a 100% necrotic base of the wound is noted. The ulcer was excisionally debrided using a Versajet of all necrotic, nonviable tissue down to healthy bleeding base including subcutaneous tissue. Pressure was applied for hemostasis. A wound VAC was then applied with GranuFoam. Excellent suction was noted. This was then reinforced with 4 x 4, Kerlix and Coban for compression. The wound VAC was then disconnected. This was then restarted in day to make sure there was not excessive bleeding. Patient tolerated procedure and anesthesia well with vital signs stable and vascular status intact to both feet. He will be discharged home in stable. Labs were ordered. Imaging were ordered. I discussed the procedure in detail with the patient and his . I discussed risk for below the knee amputation to the left lower extremity. He has an appointment with infectious disease the day before . He is advised to discuss antibiotics in detail with them. Will repeat debridement in 1 week. Wound VAC to be changed to the left lower extremity Friday with Granu foam, with foam into the tunneling the plantar direction, Kerlix and Coban compression at 50% overlap. Dressings to the right lower extremity to be changed with Hydrofera Blue, 4 x 4, Kerlix and Coban compression with 50% overlap. Recommend tight glycemic control. Recommend smoking cessation. Discussed risks for both. Date of Procedure: 04/26/24
== END 2024-04-26 10:22 | disposition home or self-care (01) ==
PROVIDERS: PCP Family Medicine; Visit Provider Podiatrist
PROC: (CPT 11042; principal; 2024-04-26 08:30)
DX: L97.422 Non-pressure chronic ulcer of left heel and midfoot with fat layer exposed (principal); E11.51 Type 2 diabetes mellitus with diabetic peripheral angiopathy without gangrene; L97.428 Non-pressure chronic ulcer of left heel and midfoot with other specified severity; L97.418 Non-pressure chronic ulcer of right heel and midfoot with other specified severity; I70.244 Atherosclerosis of native arteries of left leg with ulceration of heel and midfoot; I70.234 Atherosclerosis of native arteries of right leg with ulceration of heel and midfoot
CPT/HCPCS: 11042; 97597; 00123; 36415; 85652; 73650; 85025; 86140; J0690; J2250; J2405

== ENCOUNTER 2024-05-03 06:46 | Day surgery (SDC) | payer MEDICAID, SELFPAY ==
[2024-05-03 07:20] VITALS: BP 101/55; PULSE 54; RESP 16; TEMP 36.3; O2SAT 100
[2024-05-03] MEDS: Normal Saline Flush 10 ML SYR IV (08:00)
[2024-05-03 08:15] VITALS: BMI 24.5
--- NOTE | 2024-05-03 08:15 | W.ANESPRE ---
General Info Date of Service Date Performed: 05/03/24 Height: 5 ft 8 in Weight: 73.4 kg Body Mass Index (BMI): 24.5 Surgical Procedure: Operation Date: 05/03/24 08:10 Proposed Procedure Side Surgeon p Excisional Wound Debridement Bi-Lat Heels/ Wound VAC Placement LT Heel Bilateral Danyelle Lara DPM 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 and Home Medications Allergies Allergy/AdvReac Type Severity Reaction Status Date / Time codeine Allergy rash, Verified 05/03/24 08:09 cortisone Allergy urticaria Verified 05/03/24 08:09 Home Medication ?Medication ?Instructions ?Recorded aspirin 81 mg tablet,delayed 81 mg PO DAILY 04/27/23 release atorvastatin 80 mg tablet 80 mg PO DAILY 04/27/23 blood-glucose sensor ([employer] G7 04/27/23 Sensor device) fenofibrate 160 mg tablet 160 mg PO DAILY 04/27/23 insulin aspart U-100 100 unit/mL See Rx Instructions subcut TID 04/27/23 (3 mL) subcutaneous pen (Novolog FlexPen U-100 Insulin aspart) apixaban 5 mg tablet (Eliquis) 5 mg PO BID 12/17/23 furosemide 20 mg tablet 20 mg PO DAILY PRN 02/17/24 glucagon 0.5 mg/0.1 mL 1 mg subcut ONCE 02/17/24 subcutaneous auto-injector (Gvoke HypoPen 1-Pack) haloperidol lactate 2 mg/mL oral See Rx Instructions PO .COMPLEX 02/17/24 concentrate loperamide 2 mg capsule 2 mg PO Q4H PRN 02/17/24 mirtazapine 7.5 mg tablet 7.5 mg PO QHS 02/17/24 pantoprazole 40 mg tablet,delayed 40 mg PO DAILY 02/17/24 release potassium chloride 20 mEq 20 meq PO DAILY 02/17/24 tablet,extended release torsemide 20 mg tablet 40 mg PO DAILY 02/17/24 acetaminophen 500 mg capsule 1,000 mg PO TID PRN 02/23/24 albuterol sulfate 90 mcg/actuation 2 puff inhalation Q4H PRN 02/23/24 aerosol inhaler bismuth subsalicylate 525 mg/15 mL 1,050 mg PO DAILY PRN 02/23/24 oral suspension haloperidol lactate 2 mg/mL oral 0.5 mg PO Q6H PRN 02/23/24 concentrate insulin glargine 100 unit/mL (3 38 unit subcut QPM 02/23/24 mL) subcutaneous pen (Basaglar KwikPen U-100 Insulin) insulin glargine 100 unit/mL (3 56 unit subcut QAM 02/23/24 mL) subcutaneous pen (Basaglar KwikPen U-100 Insulin) metoprolol succinate 12.5 cap PO DAILY 03/22/24 sacubitril-valsartan 1 cap PO DAILY 03/22/24 hydrocodone 5 mg-acetaminophen 325 1 tab PO DIRECTED 04/08/24 mg tablet nutritional supplements See Rx Instructions PO .QD 3 04/12/24 months #30 packets sulfamethoxazole 800 1 tab PO BID 14 days #28 tabs 04/26/24 mg-trimethoprim 160 mg tablet (Bactrim DS) ciprofloxacin HCl 500 mg tablet 500 mg PO BID #14 tabs 04/29/24 Current Visit Medications: Current Medications Generic Name Dose Route Start Last Admin Trade Name Freq PRN Reason Stop Dose Admin Cefazolin Sodium/Dextrose 2 gm in 50 mls @ 100 mls/hr 05/03/24 06:00 Ancef Duplex IVPB 05/03/24 23:59 PREOP BURT IV Miscellaneous Supplies 1 each 05/03/24 06:00 Iv Access IV 05/03/24 23:59 DIRECTED BURT Sodium Chloride 0 ml 05/03/24 06:00 05/03/24 08:00 Normal Saline Flush 10 Ml Syr IV 05/03/24 23:59 10 ml PRN PRN Administration Sodium Chloride 0 ml 05/03/24 06:00 Normal Saline 10 Ml Vial IJ 05/03/24 23:59 DIRECTED PRN Sterile Water 0 ml 05/03/24 06:00 Water,Injection,Sterile 10 Ml Vial IJ 05/03/24 23:59 DIRECTED PRN PFSH Active Problems Active Problems: Problem Status Onset Code Chronic ulcer of left heel with fat layer exposed Acute L97.422 Osteomyelitis of left ankle Acute M86.9 Chronic kidney disease, stage 3a Acute N18.31 Atherosclerotic PVD with ulceration Acute I70.209, L98.499 Ischemic ulcer of right heel Acute L97.419 Ischemic ulcer of left heel Acute L97.429 Ulcer of right heel Acute L97.419 Ulcer of left heel Acute L97.429 Heart failure with reduced ejection fraction Acute I50.20 Mitral valve regurgitation Chronic I34.0 Hyperglycemia due to type 2 diabetes mellitus Acute E11.65 Diabetes Chronic E11.9 Smoker Acute F17.200 Peripheral neuropathy Acute G62.9 Chronic ulcer of right foot Acute L97.519 Ulcer of right foot with fat layer exposed Acute L97.512 Cellulitis Acute L03.90 PVD (peripheral vascular disease) Chronic I73.9 Osteomyelitis of right foot Acute M86.9 Pain in left foot Acute M79.672 Diabetic foot ulcer Acute E11.621, L97.509 Snoring Acute R06.83 Nicotine dependence Acute F17.200 Lumbosacral radiculopathy Acute M54.17 Lumbar spondylosis Acute M47.816 Hypertension Chronic I10 Hyperlipidemia Acute E78.5 Diabetic neuropathy Acute E11.40 Depressive disorder Chronic F32.A Atherosclerosis of coronary artery Acute I25.10 Medical History Medical History Acute kidney injury contrast-induced (12/2023) Hx of pulmonary embolus Protein calorie malnutrition Prolapsed lumbosacral intervertebral disc 04/23/2011 Acute [place] x3 Surgical History Surgical History Hx of cataract surgery History of carpal tunnel release H/O heart artery stent x 9, last in 2017 History of spinal fusion x3 Tobacco Smoking/Tobacco Use Status: Current every day Tobacco Type: cigarettes Alcohol Alcohol Intake: never Substance Use Substance use: Never Substance use type: does not use Vital Signs and Lab Results Vital Signs Most Recent Vital Signs in EMR: Most Recent Vital Signs Temp Pulse Resp BP Pulse Ox 36.3 C L 54 L 16 101/55 L 100 05/03/24 07:20 05/03/24 07:20 05/03/24 07:20 05/03/24 07:20 05/03/24 07:20 Lab Results Blood Type / Crossmatch: No Data to Display Complete Blood Count: White Blood Count 11.11 10^3/uL (4.4-10.8) H 04/26/24 09:40 Red Blood Count 3.83 10^6/uL (4.36-5.78) L 04/26/24 09:40 Hemoglobin 11.4 g/dL (13.5-17.5) L 04/26/24 09:40 Hematocrit 35.9 % (40.0-50.0) L 04/26/24 09:40 Platelet Count 273 10^3/uL (130-400) 04/26/24 09:40 Complete Metabolic Panel: C-Reactive Protein < 0.50 mg/dL (<or=0.5) 04/26/24 09:40 Liver Function Panel: No Data to Display Coagulation Panel: No Data to Display Cardiac Panel: No Data to Display Arterial Blood Gas: No Data to Display Venous Blood Gas: No Data to Display Pancreas Panel: No Data to Display Thyroid Panel: No Data to Display Infectious Disease: No Data to Display Blood Cultures: No Data to Display Toxicology Panel: No Data to Display Imaging and Studies Imaging and Studies Study information below may be from another EMR and interpreted by another provider. Please see original notes in EMR for more complete details. Echocardiogram Summary: 12/10/2023: EF 34%, RV normal size, LA severe dilation, Moderate to Severe MR, Mild to Mod TR, PASP 43, MR worsened, other findings similar to previous echo. CT Summary: 05/09/2023: IMPRESSION: 1. Atherosclerosis. 2. 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 3. 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 4. Filling defects seen in vessels in the lower lobes of the lungs consistent with pulmonary emboli. A pulmonary embolus CT scan of the chest is requested for further evaluation. 5. 1.9 x 2.2 cm cyst in the tail of the pancreas. MRI is recommended for further evaluation. 6. Findings were discussed with Dr. Raymond Maharaj of the emergency department at 5:20 p.m. on 05/09/2023. Anesthesia Assessment and Plan Anesthesia History Personal History: No History of Anesthesia Complications Family History: No Family History of Anesthesia Complications Exercise Tolerance Exercise Tolerance: Metabolic Equivalents<4 Cardiac & Pulmonary Exam Cardiac Exam: Normal S1/S2 Heart Sounds Pulmonary Exam: Clear Bilateral Breath Sounds Implantable Cardiac Device Does patient have a Pacemaker or an ICD?: No Airway Exam Known Difficult Airway: No Mallampati Class: 1 Mouth Opening: Normal (> 3cm) Thyromental Distance: Greater than 3 cm Neck Range of Motion: Full ROM Neck Circumference: Normal Teeth Condition: Edentulous ASA Classification ASA Score: ASA 3 Emergency Case?: No NPO Status NPO Status: NPO Clears >2 hours, Solids >8 hours Anesthesia Plan Resuscitation Status: Full Code Anesthesia Technique: MAC Anesthesia Airway Planned: Natural Airway Monitors Used: Standard Monitors
[2024-05-03] MEDS: ceFAZolin 2 GM/50 ML BAG IVPB (08:23)
[2024-05-03] MEDS: Lidocaine 1% Pres-Free 30 ML VIAL (08:25)
[2024-05-03 08:57] VITALS: BP 138/72; PULSE 63; RESP 16; TEMP 35.8; O2SAT 99
--- NOTE | 2024-05-03 09:04 | W.ANESPOSTOP ---
Postoperative Evaluation Date, Time and Location Date Performed: 05/03/24 Time Performed: 09:04 Patient Location: Day Surgery Unit Vital Signs Most Recent Imported Vital Signs: Most Recent Vital Signs Temp Pulse Resp BP Pulse Ox 36.3 C L 54 L 16 101/55 L 100 05/03/24 07:20 05/03/24 07:20 05/03/24 07:20 05/03/24 07:20 05/03/24 07:20 Assessment Mental Status: Awake (Alert & Oriented to Patient Baseline) Airway and Respiratory Function: Patent airway with normal (patient baseline) respiratory exam Cardiovascular Function: Hemodynamically Stable Hydration Status: Adequately Hydrated Nausea & Vomiting: No Nausea or Vomiting Pain: Pt. Denies Any Pain Peripheral Nerve Block: Patient did not receive a nerve block
--- NOTE | 2024-05-03 09:05 | W.PM.DSUDISC ---
Date of service: 05/03/24 Discharge Plan Disposition Patient Disposition: Home Condition: Stable Discharge Details Attending Provider: Danyelle Lara Primary Care Provider: Marko Stevens Home Meds and New Rx's Prescriptions: No Action aspirin 81 mg tablet,delayed release (DR/EC) 81 mg PO DAILY atorvastatin 80 mg tablet 80 mg PO DAILY (DME) Dexcom G7 Sensor Device See Rx Instructions .Route Rx Instructions: As directed fenofibrate 160 mg tablet 160 mg PO DAILY insulin aspart U-100 [Novolog FlexPen U-100 Insulin] 100 unit/mL (3 mL) insulin pen See Rx Instructions subcut TID Rx Instructions: subcutaneously three times a day; Eliquis 5 mg tablet 5 mg PO BID furosemide 20 mg tablet 20 mg PO DAILY PRN Gvoke HypoPen 1-Pack 0.5 mg/0.1 mL auto-injector 1 mg subcut ONCE Rx Instructions: as a single dose; may repeat once after 15 minutes if no response haloperidol lactate 2 mg/mL concentrate See Rx Instructions PO .COMPLEX Rx Instructions: orally; dosing not provided by PCP loperamide 2 mg capsule 2 mg PO Q4H PRN Rx Instructions: administer after each loose stool until symptoms controlled; do not exceed 8 mg per 24 hrs mirtazapine 7.5 mg tablet 7.5 mg PO QHS pantoprazole 40 mg tablet,delayed release (DR/EC) 40 mg PO DAILY potassium chloride 20 mEq tablet extended release 20 meq PO DAILY Patient Comments: pt doesn't take anymore torsemide 20 mg tablet 40 mg PO DAILY nutritional supplements Powder See Rx Instructions PO .QD 90 Days Qty: 30 2RF Rx Instructions: 1 packet with 8 oz of water orally QD; Placido - therapeutic nutrition powder for wound healing of chronic ulcers. Pt with low serum albumin levels. ciprofloxacin HCl 500 mg tablet 500 mg PO BID Qty: 14 0RF insulin glargine [Basaglar KwikPen U-100 Insulin] 100 unit/mL (3 mL) insulin pen 56 unit subcut QAM insulin glargine [Basaglar KwikPen U-100 Insulin] 100 unit/mL (3 mL) insulin pen 38 unit subcut QPM albuterol sulfate 90 mcg/actuation HFA aerosol inhaler 2 puff inhalation Q4H PRN haloperidol lactate 2 mg/mL concentrate 0.5 mg PO Q6H PRN Rx Instructions: 0.25-0.50 ml q6h N/v bismuth subsalicylate 525 mg/15 mL suspension 1,050 mg PO DAILY PRN Rx Instructions: for diarrhea acetaminophen 500 mg capsule 1,000 mg PO TID PRN sulfamethoxazole-trimethoprim [Bactrim DS] 800-160 mg tablet 1 tab PO BID 14 Days Qty: 28 0RF hydrocodone-acetaminophen 5-325 mg tablet 1 tab PO DIRECTED Patient Comments: TAKE 1 TABLET BY MOUTH TWICE DAILY NEEDED FOR PAIN sacubitril-valsartan [Entresto] 1 cap PO DAILY Patient Comments: per patient just started for heart valve metoprolol succinate 12.5 cap PO DAILY Discharge Instructions Additional Instructions: Please keep your dressings clean dry and intact. Home health to change dressings Friday as below: Right foot: Please cleanse the wound with wound cleanser. Soak with wound cleanser for 5 minutes. Pat dry. Apply Medihoney, 4 x 4, Kerlix and Coban and 50% compression. Left foot: Please cleanse the wound with wound cleanse. Soak the wound and wound cleanser for 5 minutes. Apply wound VAC with granufoam by packing it distally in the heel, 125 mmHg continuous suction, Profore dressing. Wound VAC to be changed Friday. Stand Alone Forms: Podiatry Instructions-DSU Activity:: Elevate Remove Dressings/Wound Care:: Do Not Remove Shower/Bathe:: Cover Diet:: Carb Counting Discharge Orders Discharge Orders: Discharge Order (Routine); Ordered 05/03/24 Ordered By: Danyelle Lara DS: Diagnosis Discharge Diagnosis (1) Chronic ulcer of left heel with fat layer exposed: Status: Acute (2) Osteomyelitis of left ankle: Status: Acute (3) Chronic kidney disease, stage 3a: Status: Acute (4) Ulcer of right heel: Status: Acute (5) Ulcer of left heel: Status: Acute (6) Smoker: Status: Acute (7) Peripheral neuropathy: Status: Acute (8) Chronic ulcer of right foot: Status: Acute
--- NOTE | 2024-05-03 09:09 | W.PM.OP ---
Operative Note Operative Note PRE-OP DIAGNOSIS: 1. Right heel ulcer, fat layer exposed. 2. Left heel ulcer, fat layer exposed, with necrosis of heel POST-OP DIAGNOSIS: same PROCEDURE: Excisional debridement including level of subcutaneous tissue, bilateral heels SURGEON: Danyelle Lara ANESTHESIA TYPE: Local By Surgeon (10 mL 1% lidocaine plain preoperatively) Refer to Anesthesia Record ESTIMATED BLOOD LOSS: 2 PATHOLOGY: none sent COMPLICATIONS: None Patient was transported to: same day Patient's condition: stable Indications: This is a 53-year-old diabetic male patient here today for serial wound debridement for bilateral heels. Patient is currently on antibiotics. Reports some improvement. Findings: Full-thickness ulceration to the right heel noted to be improving very well the ulcer today postdebridement measures 0.5 x 0.1 x 0.1 cm, predebridement the base is 100% necrotic, borders are hyperkeratotic, postdebridement, the base is healthy, bleeding and granular. There is no periwound erythema, no edema, no drainage, no malodor, no proximal streaking or lymphangitis, no fluctuance, no crepitus and no bogginess. Full-thickness ulceration noted to the left heel noted to be improving mildly however the ulcer tunnels deeper today with plantar tunneling measuring 5.5 x 5.5 cm today. The ulcer is 3.5 x 4.5 cm x 0.5 cm deep, the base predebridement is 100% necrotic, postdebridement noted to be healthy, bleeding and granular. There is resolving edema, no erythema, no fluctuance no bogginess, there is moderate sanguinous/green drainage noted on the inner layer of dressings, no crepitus no probe to bone however there is probe to tendon at this time. Procedure Description: Patient was identified in preop holding. Sites were marked. Patient was brought to the operating room placed on the operating table in supine position with the anesthesia team. Upon induction of anesthesia, bilateral heel ulcers were locally anesthetized using 1% lidocaine plain 10 mL total. Bilateral lower extremity were then scrubbed, prepped and draped in the usual aseptic manner. Attention was directed to the lateral aspect of the right heel, using a sterile #15 blade all necrotic, nonviable tissue was debrided from the heel ulcer. Hyperkeratotic tissue was debrided as well. Dressings were then applied with Xeroform gauze, 4 x 4, Kerlix and Coban for compression. Attention was directed to the posterior aspect of the left heel where a larger ulceration was noted. Using Versajet, all necrotic, nonviable tissue including subcutaneous tissue and some peritenon was debrided excisionally. The ulcer was measured. No further necrotic tissue was noted. Dressings were then applied with packing gauze, Xeroform gauze, 4 x 4, Kerlix and Coban for compression. Patient tolerated the procedure and anesthesia well with vital signs stable and vascular status intact to the lower extremity bilaterally. He was transferred to same-day for further monitoring. He will be discharged home. Dressing instructions have been provided. Patient has an appointment with infectious disease on Friday. Patient was advised that I will see response with antibiotics.infectious disease prescribes and then we will proceed from there. We will then consider continued wound care with perhaps graft application once the wound bed is ready versus surgical intervention. Patient verbalizes understanding. Patient understands that he is at risk for amputation. Date of Procedure: 05/03/24
[2024-05-03 09:45] VITALS: BP 118/53; PULSE 54; RESP 18; TEMP 36.2; O2SAT 99
== END 2024-05-03 06:47 | disposition home or self-care (01) ==
PROVIDERS: PCP Family Medicine; Visit Provider Podiatrist
PROC: (CPT 11042; principal; 2024-05-03 08:00)
DX: E11.621 Type 2 diabetes mellitus with foot ulcer (principal); L97.422 Non-pressure chronic ulcer of left heel and midfoot with fat layer exposed; L97.412 Non-pressure chronic ulcer of right heel and midfoot with fat layer exposed; M86.8X7 Other osteomyelitis, ankle and foot; E11.42 Type 2 diabetes mellitus with diabetic polyneuropathy; I73.9 Peripheral vascular disease, unspecified
CPT/HCPCS: 11042; 97597; 97598; 00123; J0690; J2250

== ENCOUNTER 2024-05-17 06:13 | Day surgery (SDC) | payer MEDICAID, SELFPAY ==
[2024-05-17 06:41] VITALS: BP 105/68; PULSE 68; RESP 18; TEMP 36.3; O2SAT 99
[2024-05-17] MEDS: Normal Saline Flush 10 ML SYR IV (06:52)
[2024-05-17 07:22] VITALS: BMI 24.3
--- NOTE | 2024-05-17 07:22 | W.ANESPRE ---
General Info Date of Service Date Performed: 05/17/24 Height: 5 ft 8 in Weight: 72.7 kg Body Mass Index (BMI): 24.3 Surgical Procedure: Operation Date: 05/17/24 07:40 Proposed Procedure Side Surgeon p Excisional Wound Debridement Heels, Possible Graft Application Left Danyelle Lara DPM 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 and Home Medications Allergies Allergy/AdvReac Type Severity Reaction Status Date / Time codeine Allergy rash, Verified 05/17/24 06:21 cortisone Allergy urticaria Verified 05/17/24 06:21 Home Medication ?Medication ?Instructions ?Recorded aspirin 81 mg tablet,delayed 81 mg PO DAILY 04/27/23 release atorvastatin 80 mg tablet 80 mg PO DAILY 04/27/23 blood-glucose sensor ([facility] G7 04/27/23 Sensor device) fenofibrate 160 mg tablet 160 mg PO DAILY 04/27/23 insulin aspart U-100 100 unit/mL See Rx Instructions subcut TID 04/27/23 (3 mL) subcutaneous pen (Novolog FlexPen U-100 Insulin aspart) apixaban 5 mg tablet (Eliquis) 5 mg PO BID 12/17/23 furosemide 20 mg tablet 20 mg PO DAILY PRN 02/17/24 glucagon 0.5 mg/0.1 mL 1 mg subcut ONCE 02/17/24 subcutaneous auto-injector (Gvoke HypoPen 1-Pack) haloperidol lactate 2 mg/mL oral See Rx Instructions PO .COMPLEX 02/17/24 concentrate loperamide 2 mg capsule 2 mg PO Q4H PRN 02/17/24 mirtazapine 7.5 mg tablet 7.5 mg PO QHS 02/17/24 pantoprazole 40 mg tablet,delayed 40 mg PO DAILY 02/17/24 release potassium chloride 20 mEq 20 meq PO DAILY 02/17/24 tablet,extended release torsemide 20 mg tablet 40 mg PO DAILY 02/17/24 acetaminophen 500 mg capsule 1,000 mg PO TID PRN 02/23/24 albuterol sulfate 90 mcg/actuation 2 puff inhalation Q4H PRN 02/23/24 aerosol inhaler bismuth subsalicylate 525 mg/15 mL 1,050 mg PO DAILY PRN 02/23/24 oral suspension haloperidol lactate 2 mg/mL oral 0.5 mg PO Q6H PRN 02/23/24 concentrate insulin glargine 100 unit/mL (3 38 unit subcut QPM 02/23/24 mL) subcutaneous pen (Basaglar KwikPen U-100 Insulin) insulin glargine 100 unit/mL (3 56 unit subcut QAM 02/23/24 mL) subcutaneous pen (Basaglar KwikPen U-100 Insulin) metoprolol succinate 12.5 cap PO DAILY 03/22/24 sacubitril-valsartan 1 cap PO DAILY 03/22/24 hydrocodone 5 mg-acetaminophen 325 1 tab PO DIRECTED 04/08/24 mg tablet nutritional supplements See Rx Instructions PO .QD 3 04/12/24 months #30 packets ciprofloxacin HCl 500 mg tablet 500 mg PO BID #14 tabs 04/29/24 Current Visit Medications: Current Medications Generic Name Dose Route Start Last Admin Trade Name Freq PRN Reason Stop Dose Admin Cefazolin Sodium/Dextrose 2 gm in 50 mls @ 100 mls/hr 05/17/24 06:00 Ancef Duplex IVPB 06/13/24 23:59 PREOP BURT IV Miscellaneous Supplies 1 each 05/17/24 06:00 Iv Access IV 06/13/24 23:59 DIRECTED BURT Sodium Chloride 0 ml 05/17/24 06:00 05/17/24 06:52 Normal Saline Flush 10 Ml Syr IV 06/13/24 23:59 10 ml PRN PRN Administration Sodium Chloride 0 ml 05/17/24 06:00 Normal Saline 10 Ml Vial IJ 06/13/24 23:59 DIRECTED PRN Sterile Water 0 ml 05/17/24 06:00 Water,Injection,Sterile 10 Ml Vial IJ 06/13/24 23:59 DIRECTED PRN PFSH Active Problems Active Problems: Problem Status Onset Code Tobacco dependence Acute F17.200 Chronic ulcer of left heel with fat layer exposed Acute L97.422 Osteomyelitis of left ankle Acute M86.9 Chronic kidney disease, stage 3a Acute N18.31 Atherosclerotic PVD with ulceration Acute I70.209, L98.499 Ischemic ulcer of right heel Acute L97.419 Ischemic ulcer of left heel Acute L97.429 Ulcer of right heel Acute L97.419 Ulcer of left heel Acute L97.429 Heart failure with reduced ejection fraction Acute I50.20 Mitral valve regurgitation Chronic I34.0 Hyperglycemia due to type 2 diabetes mellitus Acute E11.65 Diabetes Chronic E11.9 Smoker Acute F17.200 Peripheral neuropathy Acute G62.9 Chronic ulcer of right foot Acute L97.519 Ulcer of right foot with fat layer exposed Acute L97.512 Cellulitis Acute L03.90 PVD (peripheral vascular disease) Chronic I73.9 Osteomyelitis of right foot Acute M86.9 Pain in left foot Acute M79.672 Diabetic foot ulcer Acute E11.621, L97.509 Snoring Acute R06.83 Nicotine dependence Acute F17.200 Lumbosacral radiculopathy Acute M54.17 Lumbar spondylosis Acute M47.816 Hypertension Chronic I10 Hyperlipidemia Acute E78.5 Diabetic neuropathy Acute E11.40 Depressive disorder Chronic F32.A Atherosclerosis of coronary artery Acute I25.10 Medical History Medical History Acute kidney injury contrast-induced (12/2023) Hx of pulmonary embolus Protein calorie malnutrition Prolapsed lumbosacral intervertebral disc 04/23/2011 Acute [place] x3 Surgical History Surgical History Hx of cataract surgery History of carpal tunnel release H/O heart artery stent x 9, last in 2017 History of spinal fusion x3 Tobacco Smoking/Tobacco Use Status: Current every day Tobacco Type: cigarettes Alcohol Alcohol Intake: never Substance Use Substance use: Never Substance use type: does not use Vital Signs and Lab Results Vital Signs Most Recent Vital Signs in EMR: Most Recent Vital Signs Temp Pulse Resp BP Pulse Ox 36.3 C L 68 18 105/68 99 05/17/24 06:41 05/17/24 06:41 05/17/24 06:41 05/17/24 06:41 05/17/24 06:41 Lab Results Blood Type / Crossmatch: No Data to Display Complete Blood Count: White Blood Count 11.11 10^3/uL (4.4-10.8) H 04/26/24 09:40 Red Blood Count 3.83 10^6/uL (4.36-5.78) L 04/26/24 09:40 Hemoglobin 11.4 g/dL (13.5-17.5) L 04/26/24 09:40 Hematocrit 35.9 % (40.0-50.0) L 11/18/24 09:40 Platelet Count 273 10^3/uL (130-400) 04/26/24 09:40 Complete Metabolic Panel: C-Reactive Protein < 0.50 mg/dL (<or=0.5) 04/26/24 09:40 Liver Function Panel: No Data to Display Coagulation Panel: No Data to Display Cardiac Panel: No Data to Display Arterial Blood Gas: No Data to Display Venous Blood Gas: No Data to Display Pancreas Panel: No Data to Display Thyroid Panel: No Data to Display Infectious Disease: No Data to Display Blood Cultures: No Data to Display Toxicology Panel: No Data to Display Imaging and Studies Imaging and Studies Study information below may be from another EMR and interpreted by another provider. Please see original notes in EMR for more complete details. Echocardiogram Summary: 12/10/2023: EF 34%, RV normal size, LA severe dilation, Moderate to Severe MR, Mild to Mod TR, PASP 43, MR worsened, other findings similar to previous echo. CT Summary: 05/09/2023: IMPRESSION: 1. Atherosclerosis. 2. 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 3. 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 4. Filling defects seen in vessels in the lower lobes of the lungs consistent with pulmonary emboli. A pulmonary embolus CT scan of the chest is requested for further evaluation. 5. 1.9 x 2.2 cm cyst in the tail of the pancreas. MRI is recommended for further evaluation. 6. Findings were discussed with Dr. Raymond Maharaj of the emergency department at 5:20 p.m. on 05/09/2023. Anesthesia Assessment and Plan Anesthesia History Personal History: No History of Anesthesia Complications Family History: No Family History of Anesthesia Complications Exercise Tolerance Exercise Tolerance: Metabolic Equivalents<4 Pertinent Negatives Pertinent Negatives: No Symptoms of GERD Cardiac & Pulmonary Exam Cardiac Exam: Normal S1/S2 Heart Sounds Pulmonary Exam: Clear Bilateral Breath Sounds Implantable Cardiac Device Does patient have a Pacemaker or an ICD?: No Airway Exam Known Difficult Airway: No Mallampati Class: 1 Mouth Opening: Normal (> 3cm) Thyromental Distance: Greater than 3 cm Neck Range of Motion: Full ROM Neck Circumference: Normal Teeth Condition: Edentulous ASA Classification ASA Score: ASA 3 Emergency Case?: No NPO Status NPO Status: NPO Clears >2 hours, Solids >8 hours Anesthesia Plan Resuscitation Status: Full Code Anesthesia Technique: MAC Anesthesia Airway Planned: Natural Airway Monitors Used: Standard Monitors
[2024-05-17] MEDS: ceFAZolin 2 GM/50 ML BAG IVPB (08:20)
[2024-05-17] MEDS: Lidocaine 1% Pres-Free 30 ML VIAL (08:23)
[2024-05-17 09:28] VITALS: BP 111/61; PULSE 61; RESP 18; TEMP 35.7; O2SAT 99
--- NOTE | 2024-05-17 09:32 | W.PM.DSUDISC ---
Date of service: 05/17/24 Discharge Plan Disposition Patient Disposition: Home Condition: Stable Discharge Details Attending Provider: Danyelle Lara Primary Care Provider: Marko Stevens Home Meds and New Rx's Prescriptions: No Action aspirin 81 mg tablet,delayed release (DR/EC) 81 mg PO DAILY atorvastatin 80 mg tablet 80 mg PO DAILY (DME) Dexcom G7 Sensor Device See Rx Instructions .Route Rx Instructions: As directed fenofibrate 160 mg tablet 160 mg PO DAILY insulin aspart U-100 [Novolog FlexPen U-100 Insulin] 100 unit/mL (3 mL) insulin pen See Rx Instructions subcut TID Rx Instructions: subcutaneously three times a day; Eliquis 5 mg tablet 5 mg PO BID furosemide 20 mg tablet 20 mg PO DAILY PRN Gvoke HypoPen 1-Pack 0.5 mg/0.1 mL auto-injector 1 mg subcut ONCE Rx Instructions: as a single dose; may repeat once after 15 minutes if no response haloperidol lactate 2 mg/mL concentrate See Rx Instructions PO .COMPLEX Rx Instructions: orally; dosing not provided by PCP loperamide 2 mg capsule 2 mg PO Q4H PRN Rx Instructions: administer after each loose stool until symptoms controlled; do not exceed 8 mg per 24 hrs mirtazapine 7.5 mg tablet 7.5 mg PO QHS pantoprazole 40 mg tablet,delayed release (DR/EC) 40 mg PO DAILY potassium chloride 20 mEq tablet extended release 20 meq PO DAILY Patient Comments: pt doesn't take anymore torsemide 20 mg tablet 40 mg PO DAILY nutritional supplements Powder See Rx Instructions PO .QD 90 Days Qty: 30 2RF Rx Instructions: 1 packet with 8 oz of water orally QD; Placido - therapeutic nutrition powder for wound healing of chronic ulcers. Pt with low serum albumin levels. ciprofloxacin HCl 500 mg tablet 500 mg PO BID Qty: 14 0RF insulin glargine [Basaglar KwikPen U-100 Insulin] 100 unit/mL (3 mL) insulin pen 56 unit subcut QAM insulin glargine [Basaglar KwikPen U-100 Insulin] 100 unit/mL (3 mL) insulin pen 38 unit subcut QPM albuterol sulfate 90 mcg/actuation HFA aerosol inhaler 2 puff inhalation Q4H PRN haloperidol lactate 2 mg/mL concentrate 0.5 mg PO Q6H PRN Rx Instructions: 0.25-0.50 ml q6h N/v bismuth subsalicylate 525 mg/15 mL suspension 1,050 mg PO DAILY PRN Rx Instructions: for diarrhea acetaminophen 500 mg capsule 1,000 mg PO TID PRN hydrocodone-acetaminophen 5-325 mg tablet 1 tab PO DIRECTED Patient Comments: TAKE 1 TABLET BY MOUTH TWICE DAILY NEEDED FOR PAIN sacubitril-valsartan [Entresto] 1 cap PO DAILY Patient Comments: per patient just started for heart valve metoprolol succinate 12.5 cap PO DAILY Discharge Instructions Additional Instructions: Please keep the dressings clean, dry and intact. Do not let the dressings get wet. Home health to apply wound VAC on FRIDAY. Please keep the steri streps intact. Apply granufoam, wound VAC at 125 mmHG continuous. To be changed MWF. Call immediately if there is any worsening. Stand Alone Forms: Podiatry Instructions-DSU Activity:: Elevate Remove Dressings/Wound Care:: Do Not Remove Shower/Bathe:: Cover Diet:: Carb Counting Discharge Orders Discharge Orders: Discharge Order (Routine); Ordered 05/17/24 Ordered By: Danyelle Lara DS: Diagnosis Discharge Diagnosis (1) Chronic ulcer of left heel with fat layer exposed: Status: Acute (2) Ischemic ulcer of left heel: Status: Acute (3) Acute osteomyelitis of left calcaneus: Status: Acute (4) Abscess of left foot excluding toes: Status: Acute
--- NOTE | 2024-05-17 09:35 | W.ANESPOSTOP ---
Postoperative Evaluation Date, Time and Location Date Performed: 05/17/24 Time Performed: 09:36 Patient Location: Day Surgery Unit Vital Signs Most Recent Imported Vital Signs: Most Recent Vital Signs Temp Pulse Resp BP Pulse Ox 35.7 C L 61 18 111/61 99 05/17/24 09:28 05/17/24 09:28 05/17/24 09:28 05/17/24 09:28 05/17/24 09:28 Pain Score Most Recent Pain Score: Most Recent Pain Score Pain Level 0 05/17/24 09:28 Assessment Mental Status: Awake (Alert & Oriented to Patient Baseline) Airway and Respiratory Function: Patent airway with normal (patient baseline) respiratory exam Cardiovascular Function: Hemodynamically Stable Hydration Status: Adequately Hydrated Nausea & Vomiting: No Nausea or Vomiting Pain: Pt. Denies Any Pain Peripheral Nerve Block: Patient did not receive a nerve block
[2024-05-17 09:59] VITALS: BP 105/63; PULSE 59; RESP 18; TEMP 35.9; O2SAT 99
--- NOTE | 2024-05-17 10:13 | ROE_ITS ---
Operative Note Operative Note PRE-OP DIAGNOSIS: Full-thickness ulcer, osteomyelitis, left heel POST-OP DIAGNOSIS: same (Full-thickness ulcer, osteomyelitis, left heel, abscess, left foot) PROCEDURE: Excisional debridement, left heel including subcutaneous tissue measuring 4.5 cm x 3.0 cm x 6 cm deep. Incision and drainage, left foot SURGEON: Danyelle Lara ANESTHESIA TYPE: Local By Surgeon (10 mL 1% lidocaine plain preoperatively. 10 mL 1% lidocaine plain intraoperatively.) and MAC Refer to Anesthesia Record ESTIMATED BLOOD LOSS: 10 Patient was transported to: same day Patient's condition: stable Implants: Micro matrix flex product number [id number] Cytal 3-layer 5x5cm Product # [id number] Indications: This is a 53-year-old diabetic male patient with full-thickness ulceration with osteomyelitis to the left heel. Patient has been on antibiotics. Patient has been undergoing serial debridement of the wound. Another serial debridement was discussed with the patient to allow for this wound to heal. I recommended appli cation of a graft to allow this wound to heal since the wound has not decreased in dimensions and more than 1 month x 50%. Patient consented to the procedure. I discussed all the risks, benefits, possible complications of the procedure including but not limited to pain, nerve pain, bleeding, worsening infection, need for further surgery or amputation,, delayed healing, DVT, PE, bleeding, stroke, AR or with anesthesia. Patient consented. No contraindications were noted to the procedure at this time. Findings: Full-thickness ulceration with a necrotic base noted to the posterior aspect of the left heel. Upon debridement of this necrotic tissue, calcaneus is noted to be exposed. There is a 4 cm tunneling in the plantar aspect of this wound. There was an abscess noted to the plantar aspect of the wound which upon further exploration revealed a deeper wound of the total of 6 cm. There is some plantar fat pad necrosis plantarly as well. Procedure Description: Patient was identified in preop holding. Site was marked. Consent was signed reviewed in chart. Patient was then brought to the operating room and placed on the operating table in supine position. After induction of anesthesia, 10 mL of 1% lidocaine plain was injected around the left heel for local anesthesia. The left lower extremity was then scrubbed, prepped and draped in the usual aseptic manner. Attention was directed to the posterior aspect of the left heel where a necrotic wound was noted. Versajet was used to excisionally debride all the necrotic tissue. The Versajet probe was then inserted in the plantar direction where there was probing noted and this void was then debrided using the Versajet using excisional debridement. White/pink purulent drainage was noted in the suction tubing fluid. An intraoperative decision was then made to make an incision in the plantar aspect to allow for drainage of this abscess. Using a sterile #15 blade a 6 cm lazy L-shaped incision was made full-thickness to the level of periosteum, this was flapped over and explored, some purulence was noted as well as some plantar fat pad necrosis. Further debridement was performed using Versajet/rongeur. This area was then irrigated with copious amounts of sterile saline. This wound was then inspected and noted to be viable. Next, this flap was reapproximated using 2-0 Prolene to prevent flap necrosis and to allow this area to heal. Next, Micro matrix flex was injected to this area. Next, Cytal 3 layer graft was applied to the posterior aspect of the left heel. This was noted to be medically necessary to allow for granulation tissue to form over the heel. The graft was secured with 2-0 Prolene. Dressings were then applied with Adaptic, Steri-Strips. A bolster dressing was then applied posteriorly. Dressings were then applied with 4 x 4, Kerlix and Coban. Patient is to keep the dressings clean, dry and intact. Home health will apply wound VAC on Friday. I discussed the need for an incision and drainage with the patient today. He verbally consented. This was medically necessary so as to prevent worsening and allow evacuation of abscess. I recommend consultation with Plastic surgery to see if the patient is a candidate for flap closure of this wound. Patient has had serial debridement of this wound. He is currently on antibiotics as per infectious disease. There is acute osteomyelitis to the left heel. However, I recommend exploring flap closure with the understanding that this wound may ultimately progress towards a BKA. I discussed the high risk associated with this wound. This is a very challenging wound given patient comorbidities and location of the wound. This will best be served with plastic surgery at this time as I have exhausted treatment here. However, I will continue to follow so as to maintain this wound and prevent any worsening or sepsis here at [facility] until the patient is able to secure an appointment with plastic surgery and [facility] or [facility] Date of Procedure: 05/17/24
== END 2024-05-17 10:30 | disposition home or self-care (01) ==
PROVIDERS: PCP Family Medicine; Visit Provider Podiatrist
PROC: (CPT 15002; principal; 2024-05-17 07:30)
DX: E11.621 Type 2 diabetes mellitus with foot ulcer (principal); M86.172 Other acute osteomyelitis, left ankle and foot; L97.422 Non-pressure chronic ulcer of left heel and midfoot with fat layer exposed; L02.612 Cutaneous abscess of left foot; Z79.4 Long term (current) use of insulin; Z79.01 Long term (current) use of anticoagulants; N18.31 Chronic kidney disease, stage 3a; E11.22 Type 2 diabetes mellitus with diabetic chronic kidney disease; E11.69 Type 2 diabetes mellitus with other specified complication; E11.628 Type 2 diabetes mellitus with other skin complications
CPT/HCPCS: 15002; 15271; 15272; Q4118; Q4166; 00123; 87070; 87075; 87205; J0690; J2250; J3010

== ENCOUNTER 2024-05-20 11:31 | Outpatient (CLI) | payer MEDICAID, SELFPAY ==
--- NOTE | 2024-05-20 09:03 | DI.MRI_ITS ---
Exam(s) MR LOWER JOINT LT WO/W EXAM: MR LOWER JOINT LT WO/W CLINICAL HISTORY: Heel Ulcer M86.9 OSTEOMYELITIS TECHNIQUE: Multiplanar multisequence MRI was performed both pre and post contrast infused sequences. Contrast infused was 14 mL Dotarem. COMPARISON: MR MR LOWER JOINT RT WO/W from 07/29/2023 CR XR HEEL LT OS CALCIS from 03/22/2024 CR XR HEEL LT OS CALCIS from 04/26/2024 FINDINGS: This patient recent posterior calcaneus biopsy on 05/17/2024 SKIN: Posterior heel region skin ulcer is noted. BONES/JOINTS: There is prominent marrow signal abnormality involving the entire posterior aspect of t he calcaneus and extending towards the junction of the mid and anterior thirds of the calcaneus but n ot to the level of the calcaneocuboid and subtalar joints. In addition to increased signal on fluid sensitive fat sat sequences as well as abnormal enhancement, there is also confluent hypointense sign al on the non infused non-fat sat T1 weighted images. There is a biopsy marker channel posteriorly i n the calcaneus is mild signal abnormality in the Achilles tendon but no high-grade tear. There is a bnormal increased signal in the pre Achilles fat as well as in the musculature on the inferior aspect of the foot although there does not appear to be a definable peripherally enhancing abscess in the s oft tissues on the undersurface of the foot. There is a prominent calcification in the plantar fasci a, as also evident on recent plain films. Some increased signal is seen in the plantar fascia are in terposed between this osseous structure and the inferior calcaneal spur. There is no fluid collectio n within the heel fat pad immediately subjacent to this region. There is minimal amount of increased fluid in the tibiotalar joint. No effusion in the subtalar joint. There is some bone edema also ev ident within the neck of the talus. No overlying skin ulcer nor adjacent tenosynovitis. This is not contiguous with the marrow signal abnormality in the calcaneus. There is no abnormal intraosseous s ignal in the cuboid and navicular bones nor within the cuneiform bones nor within the bases of the pa rtially visualized metatarsals. LIGAMENTS: Anterior and posterior syndesmotic ligaments are intact. There is some edema around the a nterior and posterior talofibular ligaments. On the medial aspect of the ankle the deltoid ligament appears intact SINUS TARSI: There is no loss of the normal fat signal in this space. Interosseous ligament is intac t. There is no evidence of sinus tarsi ganglion cyst. MUSCULOTENDINOUS STRUCTURES: Achilles tendon: Mild increased signal. No high-grade tear. Plantar fascia: See above Anterior Extensor tendons: Unremarkable. Medial Tendons: Posterior Tibialis: Unremarkable. No tear or tenosynovitis evident. Flexor Digitorum longus: Unremarkable. No tear or tenosynovitis evident. Flexor Hallicus longus: Unremarkable. No tear or tenosynovitis evident. Lateral Tendons: Peroneus longus: Mild tenosynovitis no tear Peroneus brevis:Mild tenosynovitis no tear SOFT TISSUES: Prominent soft tissue edema around the ankle and foot. No distinct abscess evident. IMPRESSION: 1. Significant signal abnormality in the posterior 2/3 of the calcaneus which is suspicious for osteo myelitis given the history here. However, please note that there has been recent biopsy of the calca neus on 05/17/2024 and this can also result in similar appearing bone edema. 2. There is some marrow signal abnormality in the non contiguous neck of the talus. This is doubtful for osteomyelitis and may be related to altered biomechanics. May also represent edema related to a subtle stress fracture at this level. 3. Posterior heel ulcer noted. There is some edema noted in the musculature on the undersurface of t he foot but without evidence of a distinct abscess. Findings discussed by phone with the business services associate following completion of this study 05/20/2024 DATA REPOSITORY:
[2024-05-20 11:42] LABS: ESR 24 mm/hr (0-20)
[2024-05-20 11:43] LABS: Abs Immature Grans 0.09 10^3/uL (0.0-0.06); Absolute Monocyte Count 1.04 10^3/uL (0.1-0.8); Basophils % 0.7 %; Eosinophils % 0.8 %; HGB 11.5 g/dL (13.5-17.5); Immature Grans % 0.4 %; Lymphocytes % 8.5 %; MCH 29.7 pg (27.0-33.0); MCHC 31.9 % (32.0-36.0); MCV 93 fL (80-95); Monocytes % 4.9 %; Neutrophils % 84.7 %; Platelet Count 349 10^3/uL (130-400); RBC 3.87 10^6/uL (4.36-5.78); RDW 15.2 % (11.8-14.1); RDW-SD 52.3 fL; WBC 21.18 10^3/uL (4.4-10.8)
[2024-05-20 11:44] LABS: Absolute Basophil Count 0.15 10^3/uL (0.0-0.2); Absolute Eosinophil Count 0.17 10^3/uL (0.0-0.7); Absolute Neutrophil Count 17.94 10^3/uL (1.2-6.7)
[2024-05-20] MEDS: Gadoterate meglumine 20 ML SYRINGE IVP (11:51)
[2024-05-20 11:59] LABS: ALT 14 U/L (16-63); AST 21 U/L (15-37); Albumin 3.3 g/dL (3.4-5.0); Alkaline Phosphatase 81 U/L (46-116); Anion Gap 11.8 mmol/L (3-11); BUN 48 mg/dL (7-18); Bilirubin, Total 0.31 mg/dL (0.2-1.0); C-Reactive Protein 7.16 mg/dL (<or=0.5); CO2 25.2 mmol/L (21.0-32.0); CREATININE 2.6 mg/dL (0.70-1.30); Calcium 9.3 mg/dL (8.5-10.1); Chloride 103 mmol/L (98-107); Estimated GFR 28.24 (mL/min/1.73m2); Glucose 132 mg/dL (74-106); Potassium 4.9 mmol/L (3.5-5.1); Sodium 140 mmol/L (136-145); Total Protein 8.3 g/dL (6.4-8.2)
[2024-05-20] MEDS: Normal Saline Flush 10 ML SYR IJ (12:06)
== END 2024-05-20 11:51 ==
LOC: DI 11:31
PROVIDERS: PCP Family Medicine; Visit Provider Podiatrist
DX: M86.172 Other acute osteomyelitis, left ankle and foot; L97.422 Non-pressure chronic ulcer of left heel and midfoot with fat layer exposed
CPT/HCPCS: 80053; 85652; 73723; 85025; 86140

== ENCOUNTER 2024-05-20 12:48 | Inpatient (IN) | payer MEDICAID, SELFPAY ==
[2024-05-20] VITALS (7 sets, daily range): BP systolic 84–109; BP diastolic 45–59; PULSE 51–78; RESP 16–18; TEMP 36.5–36.9; O2SAT 95–99
--- NOTE | 2024-05-20 13:15 | DI.RAD_ITS ---
Exam(s) XR HEEL LT OS CALCIS EXAM: XR HEEL LT OS CALCIS CLINICAL HISTORY: Eval osteo. TECHNIQUE: 2D digital imaging was performed. COMPARISON: CR XR HEEL LT OS CALCIS from 04/26/2024 FINDINGS: Two views. There are no fractures evident. Posterior heel ulcer is again noted as is calcification at the insertional aspect of the Achilles ten don as well as within the plantar fascia. There is no obvious radiographic evidence of osteomyelitis. There is no gas in the soft tissues. IMPRESSION: No obvious radiographic evidence of osteomyelitis. Please see separate MRI report from today. DATA REPOSITORY: RADIATION DOSE DELIVERED:
--- NOTE | 2024-05-20 13:16 | ED.GENADUL_ITS ---
Discharge Plan Disposition Patient Disposition: Admit to [facility] Condition: Stable Discharge Details Chief Complaint: Orthopedic Clinical Impression: Chronic ulcer of left heel with fat layer exposed, Diabetes, Hyperglycemia due to type 2 diabetes mellitus, Mitral valve regurgitation, Heart failure with reduced ejection fraction, Atherosclerotic PVD with ulceration, Diabetic neuropathy, Chronic kidney disease, stage 3a, Hyperlipidemia, Hypertension, JESSICA (acute kidney injury) Primary Care Provider: Marko Stevens ED Provider: Naima Cummings Home Meds and New Rx's Prescriptions: No Action aspirin 81 mg tablet,delayed release (DR/EC) 81 mg PO DAILY atorvastatin 80 mg tablet 80 mg PO DAILY (DME) Dexcom G7 Sensor Device See Rx Instructions .Route Rx Instructions: As directed fenofibrate 160 mg tablet 160 mg PO DAILY insulin aspart U-100 [Novolog FlexPen U-100 Insulin] 100 unit/mL (3 mL) insulin pen See Rx Instructions subcut TID Rx Instructions: subcutaneously three times a day; Eliquis 5 mg tablet 5 mg PO BID furosemide 20 mg tablet 20 mg PO DAILY PRN Gvoke HypoPen 1-Pack 0.5 mg/0.1 mL auto-injector 1 mg subcut ONCE Rx Instructions: as a single dose; may repeat once after 15 minutes if no response haloperidol lactate 2 mg/mL concentrate See Rx Instructions PO .COMPLEX Rx Instructions: orally; dosing not provided by PCP loperamide 2 mg capsule 2 mg PO Q4H PRN Rx Instructions: administer after each loose stool until symptoms controlled; do not exceed 8 mg per 24 hrs mirtazapine 7.5 mg tablet 7.5 mg PO QHS pantoprazole 40 mg tablet,delayed release (DR/EC) 40 mg PO DAILY potassium chloride 20 mEq tablet extended release 20 meq PO DAILY Patient Comments: pt doesn't take anymore torsemide 20 mg tablet 40 mg PO DAILY nutritional supplements Powder See Rx Instructions PO .QD 90 Days Qty: 30 2RF Rx Instructions: 1 packet with 8 oz of water orally QD; Placido - therapeutic nutrition powder for wound healing of chronic ulcers. Pt with low serum albumin levels. insulin glargine [Basaglar KwikPen U-100 Insulin] 100 unit/mL (3 mL) insulin pen 56 unit subcut QAM insulin glargine [Basaglar KwikPen U-100 Insulin] 100 unit/mL (3 mL) insulin pen 38 unit subcut QPM albuterol sulfate 90 mcg/actuation HFA aerosol inhaler 2 puff inhalation Q4H PRN haloperidol lactate 2 mg/mL concentrate 0.5 mg PO Q6H PRN Rx Instructions: 0.25-0.50 ml q6h N/v bismuth subsalicylate 525 mg/15 mL suspension 1,050 mg PO DAILY PRN Rx Instructions: for diarrhea acetaminophen 500 mg capsule 1,000 mg PO TID PRN hydrocodone-acetaminophen 5-325 mg tablet 1 tab PO DIRECTED Patient Comments: TAKE 1 TABLET BY MOUTH TWICE DAILY NEEDED FOR PAIN sacubitril-valsartan [Entresto] 1 cap PO DAILY Patient Comments: per patient just started for heart valve metoprolol succinate 12.5 cap PO DAILY Jardiance 10 mg tablet 10 mg PO DAILY HPI General Mode of arrival: ambulatory . Date/Time Provider Initiated Documentation: 05/20/24 13:00 . Limitations to Documentation: no limitations . Information obtained by: patient, RN/MD and old records reviewed . HPI Narrative: HPI: This is a 53-year-old male patient with a past medical history significant for a chronic nonhealing ulcer of the left heel, CKD, peripheral vascular disease, HFrEF, mitral regurg, diabetes, hypertension, and hyperlipidemia. He was sent to our facility given the it programmer analyst concerned that he has a osteomyelitis of the heel that will require transfer to [facility] for amputation. The patient has been dealing with this wound for some time, did just complete a course of oral antibiotics yesterday. He went to the it programmer analyst for wound care, had some debridement performed, and they scheduled him for repeat laboratory studies and an MRI. The MRI showed equivocal findings that may represent osteomyelitis, and he had a worsening white blood cell count elevation to 21, mild elevation in his ESR and CRP, and an JESSICA compared to baseline. They recommended that he come to the emergency department as he did not have the means to transport himself down to [facility]. The patient reports that he uses hydrocodone at home for pain, is experiencing 8 out of 10 pain in his heel. He has not noted any fevers, nausea or vomiting, or other concerning symptoms. Exam: Gen: Awake and alert, in no apparent distress HEENT: Non-icteric sclera Neck: Supple Lungs: No apparent respiratory distress, normal respiratory effort. CV: Appears well perfused, strong distal pulses Abdomen: Non-distended MSK: Moves 4 extremities without apparent limitation in ROM Skin: Visualized skin without rashes, cyanosis. The patient's left heel has a deep ulcer, oozing of fresh blood appreciated, nonadherent dressing overlying the area. No cinthya purulence appreciated. CSM's distal to this injury intact. Neuro: Normal Gait, no obvious focal deficits or facial asymmetry. Speaks in full, clear sentences. Psych: Appropriate for situation. MDM: This is a 53-year-old male patient presenting for evaluation of a nonhealing ulcer. Differential includes but is not limited to osteomyelitis, certainly considered abscess (patient had a operative washout for an abscess approximately a week ago, also considered systemic infection such as sepsis or bacteremia that the patient is reassuringly hemodynamically appropriate. Considered failure of outpatient antibiotics for ulcer/cellulitis. The patient's long duration of symptoms and his systemic appearance makes me less co ncerned for etiologies such as necrotizing skin and soft tissue infection. The patient had a full laboratory evaluation today, but I did add on blood cultures and a lactate. There was no evidence for abscess on this evaluation. ED Course: Lactate was low, and I have a lower concern for sepsis or bacteremia on my examination. I did reach out to the it programmer analyst who recommended x-ray of the patient's heel, this was performed and does not show any concerning findings for osteomyelitis. Given this, I do feel that the patient will be best served by admission for inpatient antibiosis, and if this fails the inpatient teams can discuss transfer for amputation and definitive management. I reviewed his past note, and started him on Ancef per podiatry recommendations, 2 g every 8 hours. I reached out to the admitting hospitalist who is graciously accepted this patient for admission to their service for ongoing workup and management. I also provided the patient with a dose of hydrocortisone for management of pain to good effect. Patient remained hemodynamically appropriate while under my care and was transferred from this department without incident. Naima Cummings MD Related Data Home Medications ?Medication ?Instructions ?Recorded ?Confirmed aspirin 81 mg tablet,delayed 81 mg PO DAILY 04/27/23 05/20/24 release atorvastatin 80 mg tablet 80 mg PO DAILY 04/27/23 05/20/24 blood-glucose sensor (Dexcom G7 04/27/23 05/20/24 Sensor device) fenofibrate 160 mg tablet 160 mg PO DAILY 04/27/23 05/20/24 insulin aspart U-100 100 unit/mL See Rx Instructions subcut TID 04/27/23 05/20/24 (3 mL) subcutaneous pen (Novolog FlexPen U-100 Insulin aspart) apixaban 5 mg tablet (Eliquis) 5 mg PO BID 12/17/23 05/20/24 furosemide 20 mg tablet 20 mg PO DAILY PRN 02/17/24 05/20/24 glucagon 0.5 mg/0.1 mL 1 mg subcut ONCE 02/17/24 05/20/24 subcutaneous auto-injector (Gvoke HypoPen 1-Pack) haloperidol lactate 2 mg/mL oral See Rx Instructions PO .COMPLEX 02/17/24 05/20/24 concentrate loperamide 2 mg capsule 2 mg PO Q4H PRN 02/17/24 05/20/24 mirtazapine 7.5 mg tablet 7.5 mg PO QHS 02/17/24 05/20/24 pantoprazole 40 mg tablet,delayed 40 mg PO DAILY 02/17/24 05/20/24 release potassium chloride 20 mEq 20 meq PO DAILY 02/17/24 05/20/24 tablet,extended release torsemide 20 mg tablet 40 mg PO DAILY 02/17/24 05/20/24 acetaminophen 500 mg capsule 1,000 mg PO TID PRN 02/23/24 05/20/24 albuterol sulfate 90 mcg/actuation 2 puff inhalation Q4H PRN 02/23/24 05/20/24 aerosol inhaler bismuth subsalicylate 525 mg/15 mL 1,050 mg PO DAILY PRN 02/23/24 05/20/24 oral suspension haloperidol lactate 2 mg/mL oral 0.5 mg PO Q6H PRN 02/23/24 05/20/24 concentrate insulin glargine 100 unit/mL (3 38 unit subcut QPM 02/23/24 05/20/24 mL) subcutaneous pen (Basaglar KwikPen U-100 Insulin) insulin glargine 100 unit/mL (3 56 unit subcut QAM 02/23/24 05/20/24 mL) subcutaneous pen (Basaglar KwikPen U-100 Insulin) metoprolol succinate 12.5 cap PO DAILY 03/22/24 05/20/24 sacubitril-valsartan 1 cap PO DAILY 03/22/24 05/20/24 hydrocodone 5 mg-acetaminophen 325 1 tab PO DIRECTED 04/08/24 05/20/24 mg tablet nutritional supplements See Rx Instructions PO .QD 3 04/12/24 05/20/24 months #30 packets empagliflozin 10 mg tablet 10 mg PO DAILY 05/20/24 05/20/24 (Jardiance) Previous Rx's ?Medication ?Instructions ?Recorded nutritional supplements See Rx Instructions PO .QD 3 04/12/24 months #30 packets Allergies Allergy/AdvReac Type Severity Reaction Status Date / Time codeine Allergy rash, Verified 05/20/24 15:16 cortisone Allergy urticaria Verified 05/20/24 15:16 General Stated Complaint: Orthopedic MEKA: 3 Course Vital Signs Vital signs: Vital Signs Temperature 36.9 C 05/20/24 12:52 Pulse 78 05/20/24 12:52 Respiratory Rate 18 05/20/24 12:52 Blood Pressure 84/45 L 05/20/24 12:52 Pulse Oximetry 98 05/20/24 12:52 Temperature 36.9 C 05/20/24 12:52 Pulse 78 05/20/24 12:52 Respiratory Rate 18 05/20/24 12:52 Blood Pressure 84/45 L 05/20/24 12:52 Blood Pressure Position Sitting 05/20/24 12:52 Pulse Oximetry 98 05/20/24 12:52 Pain Level 8 05/20/24 12:52 Lab/Test Results Lab/Test Results: 05/20/24 13:12 Blood Blood Culture - Pending 05/20/24 13:12 Blood Blood Culture - Pending Medical Decision Making Quality:SDOH Health Related Social Needs: No Data to Display PFSH All Active Problems (Updated 05/20/24 @ 15:41 by Naima Cummings MD) JESSICA (acute kidney injury) (Acute) Abscess of left foot excluding toes (Acute) Acute osteomyelitis of left calcaneus (Acute) Tobacco dependence (Acute) Chronic ulcer of left heel with fat layer exposed (Acute) Osteomyelitis of left ankle (Acute) Chronic kidney disease, stage 3a (Acute) Atherosclerotic PVD with ulceration (Acute) Ischemic ulcer of right heel (Acute) Ischemic ulcer of left heel (Acute) Ulcer of right heel (Acute) Ulcer of left heel (Acute) Heart failure with reduced ejection fraction (Acute) 35%; worsened moderate to severe regurg; mitral regurg worsened 12/2023 ([facility]) Mitral valve regurgitation (Chronic) Hyperglycemia due to type 2 diabetes mellitus (Acute) Diabetes (Chronic) 08/07/05 Smoker (Acute) Peripheral neuropathy (Acute) Chronic ulcer of right foot (Acute) Ulcer of right foot with fat layer exposed (Acute) Cellulitis (Acute) PVD (peripheral vascular disease) (Chronic) Osteomyelitis of right foot (Acute) Pain in left foot (Acute) Diabetic foot ulcer (Acute) Snoring (Acute) Nicotine dependence (Acute) Lumbosacral radiculopathy (Acute) Lumbar spondylosis (Acute) Hypertension (Chronic) Hyperlipidemia (Acute) Diabetic neuropathy (Acute) Depressive disorder (Chronic) Atherosclerosis of coronary artery (Acute) Medical History Acute kidney injury contrast-induced (12/2023) Hx of pulmonary embolus Protein calorie malnutrition Prolapsed lumbosacral intervertebral disc 04/23/2011 Acute [place] x3 Surgical History Hx of cataract surgery History of carpal tunnel release H/O heart artery stent x 9, last in 2017 History of spinal fusion x3 Family History Sister Diabetes Amputation of lower limb Mother Diabetes Social History Smoking/Tobacco Use Status: Current every day Tobacco Type: cigarettes Smoking risk assessment performed?: Yes Alcohol Intake: never Drug use: Never Substance use type: does not use Housing: apartment Do you feel safe at home: Yes Do you feel safe in your relationship?: Yes Additional Social history: Lives with in [place]. Disabled. [place].
[2024-05-20 13:52] LABS: Lactate 0.8 mmol/L (0.6-1.4)
[2024-05-20] MEDS: HYDROcodone 5/Acetaminophen 325 TAB PO ×2 (13:59→18:52)
[2024-05-20] MEDS: ceFAZolin 2 GM/50 ML BAG IVPB (14:40)
--- NOTE | 2024-05-20 14:41 | W.PM.HP.N ---
Date of service: 05/20/24 Time of Service: 14:41 Assessment and Plan Assessment and plan (1) Acute osteomyelitis of left calcaneus: Status: Acute Assessment and plan: As per MRI now on Ancef 2 g IV every 8 hours Dressing change was completed at the podiatry office today?no further changing dressing needed CTA with runoff if renal function improves Consider discharging home when WBC normalizes Follow-up already scheduled with Dr. Lara on Friday (2) Tobacco dependence: Status: Acute Assessment and plan: Nicotine patch ordered (3) Acute kidney injury superimposed on CKD: Status: Acute Assessment and plan: Will start IVF of crystalloid at 50 cc an hour for 5 hours then stop. Patient has a history of HFrEF with LVEF 35% Holding diuretics and Entresto tonight-considering restarting after BMP in the morning BMP in a.m. (4) Heart failure with reduced ejection fraction: Status: Acute Assessment and plan: Last echo showed an LVEF of 35% on December 14, 2023 On guideline directed medical therapy at home patient (5) Hyperglycemia due to type 2 diabetes mellitus: Status: Acute Assessment and plan: Fingerstick ACHS with basal bolus insulin and SSI coverage Also on Jardiance the agents as per HFrEF gu but it is improving to go home requirement chart and plan directed medical therapy (6) Contraindication to deep vein thrombosis (DVT) prophylaxis: Status: Acute Assessment and plan: On home dose Eliquis Discussed with Dr. Aleman [facility] History of Present Illness History of Present Illness Chief Complaint: Infected left heel ulcer Narrative: This 53-year-old old male patient with a past medical history of HFrEF, insulin-dependent diabetes mellitus, chronic heel ulcers with abscess drainage on on 02/27/2024 to the left heel was sent from the podiatry office for evaluation of suspected left lower osteomyelitis and IV antibiotic treatment as the patient at failed oral antibiotic therapy outpatient. Dr. Lara at the time and recommended for patient to continue offloading and protecting the area of his healed right heel ulcer. However, the full-thickness ulcer to the left heel, suspicious for osteomyelitis, was redressed in the office with the reapplication of the graft. Wound VAC was discontinued to be resumed once white count normalizes. Arrival to the ED the patient was afebrile, without tachypnea but systolic blood pressure was in the 90s. Workup in the hospital was significant for MRI finding of osteomyelitis versus bony edema appearance status post biopsy from 05/17/2024 versus subtle stress fracture. Blood work show a WBC around 21, ESR of 24 and a CRP of 7.16. Chemistry showed a BUN of 48 and a creatinine of 2.6 with baseline around 35 and 1.4. The hospitalist was consulted and the patient admitted to the medical surgical floor for evaluation and management of JESSICA on CKD, osteomyelitis, left heel ulcer, and IV antibiotics therapy. When seen the patient confirmed that he was full code. The patient denied fever, night sweats, chills, dizziness, headache, chest pain, cough, gastrointestinal and genitourinary symptoms. Review of Systems All systems reviewed & are unremarkable except as noted in HPI and below PFSH All Active Problems (Updated 05/20/24 @ 17:58 by Asya Winchester APRN) Contraindication to deep vein thrombosis (DVT) prophylaxis (Acute) Acute kidney injury superimposed on CKD (Acute) JESSICA (acute kidney injury) (Acute) Abscess of left foot excluding toes (Acute) Acute osteomyelitis of left calcaneus (Acute) Tobacco dependence (Acute) Chronic ulcer of left heel with fat layer exposed (Acute) Osteomyelitis of left ankle (Acute) Chronic kidney disease, stage 3a (Acute) Atherosclerotic PVD with ulceration (Acute) Ischemic ulcer of right heel (Acute) Ischemic ulcer of left heel (Acute) Ulcer of right heel (Acute) Ulcer of left heel (Acute) Heart failure with reduced ejection fraction (Acute) 35%; worsened moderate to severe regurg; mitral regurg worsened 12/2023 ([facility]) Mitral valve regurgitation (Chronic) Hyperglycemia due to type 2 diabetes mellitus (Acute) Diabetes (Chronic) 08/07/05 Smoker (Acute) Peripheral neuropathy (Acute) Chronic ulcer of right foot (Acute) Ulcer of right foot with fat layer exposed (Acute) Cellulitis (Acute) PVD (peripheral vascular disease) (Chronic) Osteomyelitis of right foot (Acute) Pain in left foot (Acute) Diabetic foot ulcer (Acute) Snoring (Acute) Nicotine dependence (Acute) Lumbosacral radiculopathy (Acute) Lumbar spondylosis (Acute) Hypertension (Chronic) Hyperlipidemia (Acute) Diabetic neuropathy (Acute) Depressive disorder (Chronic) Atherosclerosis of coronary artery (Acute) Medical History Acute kidney injury contrast-induced (12/2023) Hx of pulmonary embolus Protein calorie malnutrition Prolapsed lumbosacral intervertebral disc 04/23/2011 Acute [place] x3 Surgical History Hx of cataract surgery History of carpal tunnel release H/O heart artery stent x 9, last in 2017 History of spinal fusion x3 Family History Sister Diabetes Amputation of lower limb Mother Diabetes Social History Smoking/Tobacco Use Status: Current every day Tobacco Type: cigarettes Smoking risk assessment performed?: Yes Alcohol Intake: never Drug use: Never Substance use type: does not use Housing: apartment Do you feel safe at home: Yes Do you feel safe in your relationship?: Yes Additional Social history: Lives with in [place]. Disabled. [place] . 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 and Home Medications Allergies Allergy/AdvReac Type Severity Reaction Status Date / Time codeine Allergy rash, Verified 05/20/24 15:16 cortisone Allergy urticaria Verified 05/20/24 15:16 Home Medications ?Medication ?Instructions ?Recorded ?Confirmed ?Type aspirin 81 mg tablet,delayed 81 mg PO DAILY 04/27/23 05/20/24 History release atorvastatin 80 mg tablet 80 mg PO DAILY 04/27/23 05/20/24 History blood-glucose sensor (Dexcom G7 04/27/23 05/20/24 History Sensor device) fenofibrate 160 mg tablet 160 mg PO DAILY 04/27/23 05/20/24 History insulin aspart U-100 100 unit/mL See Rx Instructions subcut TID 04/27/23 05/20/24 History (3 mL) subcutaneous pen (Novolog FlexPen U-100 Insulin aspart) apixaban 5 mg tablet (Eliquis) 5 mg PO BID 12/17/23 05/20/24 History furosemide 20 mg tablet 20 mg PO DAILY PRN 02/17/24 05/20/24 History glucagon 0.5 mg/0.1 mL 1 mg subcut ONCE 02/17/24 05/20/24 History subcutaneous auto-injector (Gvoke HypoPen 1-Pack) loperamide 2 mg capsule 2 mg PO Q4H PRN 02/17/24 05/20/24 History mirtazapine 7.5 mg tablet 7.5 mg PO QHS 02/17/24 05/20/24 History pantoprazole 40 mg tablet,delayed 40 mg PO DAILY 02/17/24 05/20/24 History release potassium chloride 20 mEq 20 meq PO DAILY 02/17/24 05/20/24 History tablet,extended release torsemide 20 mg tablet 40 mg PO DAILY 02/17/24 05/20/24 History acetaminophen 500 mg capsule 1,000 mg PO TID PRN 02/23/24 05/20/24 History albuterol sulfate 90 mcg/actuation 2 puff inhalation Q4H PRN 02/23/24 05/20/24 History aerosol inhaler bismuth subsalicylate 525 mg/15 mL 1,050 mg PO DAILY PRN 02/23/24 05/20/24 History oral suspension haloperidol lactate 2 mg/mL oral 0.5 mg PO Q6H PRN 02/23/24 05/20/24 History concentrate insulin glargine 100 unit/mL (3 38 unit subcut QPM 02/23/24 05/20/24 History mL) subcutaneous pen (Basaglar KwikPen U-100 Insulin) insulin glargine 100 unit/mL (3 56 unit subcut QAM 02/23/24 05/20/24 History mL) subcutaneous pen (Basaglar KwikPen U-100 Insulin) metoprolol succinate 12.5 cap PO DAILY 03/22/24 05/20/24 History hydrocodone 5 mg-acetaminophen 325 1 tab PO BID PRN PRN 04/08/24 05/20/24 History mg tablet nutritional supplements See Rx Instructions PO .QD 3 04/12/24 05/20/24 Rx months #30 packets empagliflozin 10 mg tablet 10 mg PO DAILY 05/20/24 05/20/24 History (Jardiance) sacubitril 24 mg-valsartan 26 mg 1 tab PO BID 05/20/24 05/20/24 History tablet (Entresto) Exam Narrative Exam Narrative: Constitutional The patient without acute distress HENMT: Facial structures with normal appearance Neck: Normal ROM, no meningeal signs but complains of intermittent neck pain Neuro:alert and oriented to self, person, place, time and situation. No neurological focal deficit Chest:Chest is symmetrical and normal appearance Resp: Normal respiratory pattern, speaks in full sentences, unlabored breathing, clear lung bilaterally Cardio: regular rhythm, positive murmur, capillary refill<3 sec. GI: Abdomen is not distended, soft and non tender, bowel sounds are present : Negative Costovertebral angle tenderness Back/spine/Pelvis: No back tenderness, normal alignment Integumentary: Dress ulcer to left heel today in podiatry office Extremities: strength 5/5 to bilateral lower and upper extremities Psych: RASS 0, congruent mood and normal affect. Results Labs Labs: Laboratory Results - last 24 hr 05/20/24 13:40 VBG Lactate 0.8 Last Vital Signs Temp 36.9 C 05/20/24 12:52 Pulse 66 05/20/24 14:27 Resp 18 05/20/24 14:27 BP 91/55 L 05/20/24 14:27 Pulse Ox 97 05/20/24 14:27 Time Spent Time spent with Patient: >75 minutes Time was spent: preparing to see the patient(eg.review tests), obtaining and/or reviewing separately otained hiistory, ordering medications,tests, procedures, referring, communicating with other health physician assistant primary care, indepentently interpreting results, counseling the patient and care coordination
[2024-05-20] MEDS: Normal Saline Flush 10 ML SYR IVP ×3 (16:45→20:31)
--- NOTE | 2024-05-20 16:56 | W.PC.ACHO ---
Registration Status: Primary Language: Preferred Language: ED Information & Data Chief Complaint Orthopedic 05/20/24 13:28 Chief Complaint Orthopedic 05/20/24 13:16 Triage Note was sent from MRI, needing 05/20/24 12:52 [place] [facility] [place] am showing worsening osteomyelitis. wound has persisted for over a month. pt doesn't know how wound occurred, hx dm 2 Medical / Surgical History (Last Reviewed 05/20/24 @ 14:29 by Danyelle Lara DPM) Acute kidney injury Hx of pulmonary embolus Protein calorie malnutrition Prolapsed lumbosacral intervertebral disc Acute SC (Last Reviewed 05/20/24 @ 14:29 by Danyelle Lara DPM) Hx of cataract surgery History of carpal tunnel release H/O heart artery stent History of spinal fusion Most Recent Vital Signs Temperature 36.5 C 05/20/24 15:53 Temperature Source Temporal Artery Scan 05/20/24 15:53 Pulse 62 05/20/24 15:53 Pulse Rhythm Regular 05/20/24 15:56 Respiratory Rate 16 05/20/24 15:53 Respiratory Effort Normal, Non-Labored 05/20/24 15:56 Respiratory Depth Normal 05/20/24 15:56 Respiratory Pattern Normal 05/20/24 15:56 Blood Pressure 94/59 L 05/20/24 15:53 Blood Pressure Mean 67 05/20/24 14:27 Blood Pressure Position Sitting 05/20/24 14:27 Pulse Oximetry 99 05/20/24 15:53 Oxygen Delivery Method Room Air 05/20/24 15:53 Oxygen Flow Rate 0 05/20/24 15:53 Pain Level 7 05/20/24 15:56 Allergies codeine Allergy (Verified 05/20/24 15:16) rash, cortisone Allergy (Verified 05/20/24 15:16) urticaria Precautions Isolation Standard precaution 05/20/24 13:28 Active Medications Generic Name Dose Route Start Last Admin Trade Name Freq PRN Reason Stop Dose Admin Insulin Aspart 0 units 05/20/24 17:00 05/20/24 16:50 Insulin Aspart 300 Units/3 Ml Pen SC Not Given 0800,1200,1700 ON LICENSE OF [facility] Protocol Sodium Chloride 0 ml 05/20/24 15:55 05/20/24 16:45 Normal Saline Flush 10 Ml Syr IVP 10 ml PRN PRN Administration IV IV Catheter Type [Left Saline Lock Antecubital] IV Catheter Gauge [Left 20 Antecubital] Diet Orders Category Date Time Status Diabetes Consistent CHO/Heart Healthy [DIET] Nutrition 05/20/24 Dinner Active Diagnostics 05/20/24 Range/Units 13:40 VBG Lactate 0.8 (0.6-1.4) mmol/L 05/20/24 13:46 Blood Culture - Pending Blood 05/20/24 13:40 Blood Culture - Pending Blood [id number] Documentation Fingerstick Glucose Start: 05/20/24 15:55 Freq: AC & HS Status: Active Protocol: Activity Type Activity Date Activity User E-sign Co-sign Detail Recorded Client Recorded Date Recorded By Document 05/20/24 16:07 BKG DAEMON(3) NVT-BG05 05/20/24 16:08 BKG DAEMON(4) Intake and Output - 24 Hour Total 05/20/24 12:48 thru 05/20/24 15:56 Intake Total 50 Balance 50 Weight 71.5 kg Intake: IV 50 Other: Urine Appearance Clear Falls Risk Assessment History of Falls Previous History 05/20/24 15:56 Contributing Factors Impairments 05/20/24 15:56 Ambulatory Aids Uses ambulatory device 05/20/24 15:56 Tubes/Lines None 05/20/24 15:56 Gait Evaluation W/any additional score 05/20/24 15:56 Cognition No cognitive impairment 05/20/24 15:56 Fall Total Score 53 05/20/24 15:56 Level of Risk High Risk 05/20/24 15:56 v v v v v v v v v Sending and/or Receiving Nurses: Please use comment section below to note any information pertinent to the patient hand-off not included above. Information / Comments: Report received from: Cayla HARRIS in ED at 1540 pt arrived at 1551
[2024-05-20] MEDS: Lactated Ringers 1,000 ML 50 ML IV (18:18)
[2024-05-20] MEDS: Nicotine 14 MG/24 HR PATCH TD (18:51)
[2024-05-20] MEDS: Insulin Glargine 300 UNITS/3 ML PEN 38 UNITS SC (20:31)
[2024-05-20] MEDS: Mirtazapine 15 MG TAB 7.5 MG PO (20:31)
[2024-05-20] MEDS: Loperamide 2 MG CAP PO (20:45)
[2024-05-20] MEDS: ceFAZolin 2 GM/50 ML BAG IV (21:19)
[2024-05-21 03:20] VITALS: BP 106/57; PULSE 62; RESP 16; TEMP 36.7; O2SAT 98
[2024-05-21] MEDS: ceFAZolin 2 GM/50 ML BAG IV ×3 (05:54→22:02)
[2024-05-21 06:48] LABS: Abs Immature Grans 0.03 10^3/uL (0.0-0.06); Absolute Eosinophil Count 0.27 10^3/uL (0.0-0.7); Absolute Lymphocyte Count 1.92 10^3/uL (1.2-3.4); Absolute Monocyte Count 0.86 10^3/uL (0.1-0.8); Absolute Neutrophil Count 8.44 10^3/uL (1.2-6.7); Basophils % 0.9 %; Eosinophils % 2.3 %; HGB 10.6 g/dL (13.5-17.5); Immature Grans % 0.3 %; Lymphocytes % 16.5 %; MCH 29.9 pg (27.0-33.0); MCHC 33.1 % (32.0-36.0); MCV 90 fL (80-95); MPV 11.2 fL (8.0-11.0); Monocytes % 7.4 %; Neutrophils % 72.6 %; Platelet Count 302 10^3/uL (130-400); RBC 3.54 10^6/uL (4.36-5.78); RDW 14.9 % (11.8-14.1); RDW-SD 49.9 fL; WBC 11.63 10^3/uL (4.4-10.8)
[2024-05-21 06:56] LABS: ESR 72 mm/hr (0-20)
[2024-05-21 07:06] LABS: Anion Gap 6.8 mmol/L (3-11); BUN 59 mg/dL (7-18); C-Reactive Protein 5.99 mg/dL (<or=0.5); CO2 28.2 mmol/L (21.0-32.0); CREATININE 2.7 mg/dL (0.70-1.30); Calcium 8.7 mg/dL (8.5-10.1); Chloride 105 mmol/L (98-107); Estimated GFR 26.99 (mL/min/1.73m2); Potassium 4.4 mmol/L (3.5-5.1); Sodium 140 mmol/L (136-145)
[2024-05-21 07:10] LABS: Glucose 49 mg/dL (74-106)
[2024-05-21 07:22] VITALS: BP 114/58; PULSE 62; RESP 15; TEMP 36.1; O2SAT 98
[2024-05-21] MEDS: Insulin Glargine 300 UNITS/3 ML PEN 56 UNITS SC (08:10)
[2024-05-21] MEDS: Pantoprazole 40 MG TABCR PO (08:11)
[2024-05-21] MEDS: Empaglifozin 10 MG TAB PO (08:11)
[2024-05-21] MEDS: Aspirin E.C. 81 MG TABEC PO (08:12)
[2024-05-21] MEDS: Atorvastatin 40 MG TAB 80 MG PO (08:12)
[2024-05-21] MEDS: Normal Saline Flush 10 ML SYR IVP ×3 (08:13→22:02)
[2024-05-21] MEDS: Nicotine 14 MG/24 HR PATCH TD (08:14)
[2024-05-21] MEDS: HYDROcodone 5/Acetaminophen 325 TAB PO ×2 (08:21→19:07)
--- NOTE | 2024-05-21 09:12 | PDOC.CMIN ---
Date of service: 05/21/24 Time of Service: 09:12 Care Management Initial Assmt Initial Assessment Reason for Hospitalization: osteomyelitis Functional Status/Living Situation Patient Presentation: Garett was sitting up in bed, fully dressed, when CM met with him. He was admitted with osteomyelitis of his left foot. He informed that he had a similar issue with his right foot last March and it took a year to heal. At that time he received IV antibiotics for several weeks through home infusion. He indicated that he would like to do home infusions again if he he requires another extended course of IV antibiotics. Garett had services provided through [facility] before and had a good experience so would be open to working with them again. Garett lives in an apartment in [place] with his Rachel. They have 2 adult daughters but their relationship is not a close one. Garett has not been able to work for the past 4 years due to his neuropathy. He uses a cane and, more recently, a walker for ambulatory assistance. Town of Residence: [place], [place] Resides with: Spouse (Rachel) Significant Other/Family: [facility] Employment Status: Unemployed Instrumental Activities of Daily Living (ADLs): Independent Physical Functioning/Mobility Assistive Device: cane and walker Advance Directives Advance Directives: Do you have an Advance Directive: N 05/08/23 10:55 AD On File at [facility]: N 05/08/23 10:55 Date Asked 05/20/24 05/20/24 11:30 AD Date Reviewed COLST On File at [facility] COLST Date Scanned Code Status Resuscitation Status Full Code Insurance Coverage/Financial Issues Insurance: Medicaid Care Team Visit Care Team Role Provider Type Marko Stevens MD Primary Care Provider NON-[facility] STAFF PHYSICIAN Emma Schreiber RDN, [facility] Other Providers DIRECT SERVICE PROFESSIONAL Sabina Hansen Other Providers DIRECT SERVICE PROFESSIONAL Janelle Helm Other Providers OTHER iMke Yanez RDN Other Providers DIRECT SERVICE PROFESSIONAL Naima Cummings MD Emergency Provider [facility] STAFF PHYSICIAN Ernst Ricci Admit Provider [facility] STAFF PHYSICIAN Attending Provider Discharge Potential Discharge Needs: Surgical F/U Appt (Podiatry) Anticipated Barriers to Discharge: Medical Status Patient/Family Education Needs: Review discharge instructions, discuss Ask Me Three Transportation: Private vehicle Plan: Anticipate Garett will be discharged home, likely with new home health and home infusion services, when medically cleared, He will follow up with his surgeon, PCP and plan of care and transport with family. CM will follow and continue to assess for discharge needs. PFSH All Active Problems (Updated 05/20/24 @ 17:58 by Asya Winchester APRN) Contraindication to deep vein thrombosis (DVT) prophylaxis (Acute) Acute kidney injury superimposed on CKD (Acute) JESSICA (acute kidney injury) (Acute) Abscess of left foot excluding toes (Acute) Acute osteomyelitis of left calcaneus (Acute) Tobacco dependence (Acute) Chronic ulcer of left heel with fat layer exposed (Acute) Osteomyelitis of left ankle (Acute) Chronic kidney disease, stage 3a (Acute) Atherosclerotic PVD with ulceration (Acute) Ischemic ulcer of right heel (Acute) Ischemic ulcer of left heel (Acute) Ulcer of right heel (Acute) Ulcer of left heel (Acute) Heart failure with reduced ejection fraction (Acute) 35%; worsened moderate to severe regurg; mitral regurg worsened 12/2023 ([facility]) Mitral valve regurgitation (Chronic) Hyperglycemia due to type 2 diabetes mellitus (Acute) Diabetes (Chronic) 08/07/05 Smoker (Acute) Peripheral neuropathy (Acute) Chronic ulcer of right foot (Acute) Ulcer of right foot with fat layer exposed (Acute) Cellulitis (Acute) PVD (peripheral vascular disease) (Chronic) Osteomyelitis of right foot (Acute) Pain in left foot (Acute) Diabetic foot ulcer (Acute) Snoring (Acute) Nicotine dependence (Acute) Lumbosacral radiculopathy (Acute) Lumbar spondylosis (Acute) Hypertension (Chronic) Hyperlipidemia (Acute) Diabetic neuropathy (Acute) Depressive disorder (Chronic) Atherosclerosis of coronary artery (Acute) Medical History Acute kidney injury contrast-induced (12/2023) Hx of pulmonary embolus Protein calorie malnutrition Prolapsed lumbosacral intervertebral disc 04/23/2011 Acute [place] x3 Surgical History Hx of cataract surgery History of carpal tunnel release H/O heart artery stent x 9, last in 2017 History of spinal fusion x3 Family History Sister Diabetes Amputation of lower limb Mother Diabetes Social History Smoking/Tobacco Use Status: Current every day Tobacco Type: cigarettes Smoking risk assessment performed?: Yes Alcohol Intake: never Drug use: Never Substance use type: does not use Housing: apartment Do you feel safe at home: Yes Do you feel safe in your relationship?: Yes Additional Social history: Lives with in [place]. Disabled. [place]. SDOH(Care Management) Screening Will the Patient Participate in the Screening?: Yes Do you worry about having a steady place to live?: no Problems where you live: no known problems In the past 12 months, have you had to go without electric, gas, oil or water in your home?: no Have you or anyone in your house had to go without enough food to eat?: yes Has lack of transportation kept you from medical appointments or from doing things needed for daily living?: no Has anyone in your support network made you feel unsafe for any reason?: no Health Related Social Needs Health related social needs: food insecurity(Z59.41)
--- NOTE | 2024-05-21 09:14 | PT.INIE ---
PT Notes Visit Reasons: Cellulitis, Left heel infected ulcer, JESSICA ON CKD Physical Therapy Inpatient Initial Evaluation Date: 05/21/2024 Referring Doctor: Asya Winchester NP PT Orders: PT CONSULT: Eval for Assistive Device Precautions: Fall. Standard. NWB through L LE. Patient Profile/Admitting Diagnosis: Garett is a 53-year-old male admitted for management of postoperative status, osteomyelitis, tobacco dependence, JESSICA on CKD, heart failure with 35% EF, and hyperglycemia. Patient is status post excisional debridement as well as incision and drainage of left full-thickness calcaneal ulcer on POD 1. PMHX: All Active Problems (Updated 05/20/24 @ 17:58 by Asya Winchester APRN) Contraindication to deep vein thrombosis (DVT) prophylaxis (Acute) Acute kidney injury superimposed on CKD (Acute) JESSICA (acute kidney injury) (Acute) Abscess of left foot excluding toes (Acute) Acute osteomyelitis of left calcaneus (Acute) Tobacco dependence (Acute) Chronic ulcer of left heel with fat layer exposed (Acute) Osteomyelitis of left ankle (Acute) Chronic kidney disease, stage 3a (Acute) Atherosclerotic PVD with ulceration (Acute) Ischemic ulcer of right heel (Acute) Ischemic ulcer of left heel (Acute) Ulcer of right heel (Acute) Ulcer of left heel (Acute) Heart failure with reduced ejection fraction (Acute) 35%; worsened moderate to severe regurg; mitral regurg worsened 12/2023 ([facility]) Mitral valve regurgitation (Chronic) Hyperglycemia due to type 2 diabetes mellitus (Acute) Diabetes (Chronic) 08/07/05 Smoker (Acute) Peripheral neuropathy (Acute) Chronic ulcer of right foot (Acute) Ulcer of right foot with fat layer exposed (Acute) Cellulitis (Acute) PVD (peripheral vascular disease) (Chronic) Osteomyelitis of right foot (Acute) Pain in left foot (Acute) Diabetic foot ulcer (Acute) Snoring (Acute) Nicotine dependence (Acute) Lumbosacral radiculopathy (Acute) Lumbar spondylosis (Acute) Hypertension (Chronic) Hyperlipidemia (Acute) Diabetic neuropathy (Acute) Depressive disorder (Chronic) Atherosclerosis of coronary artery (Acute) Medical History Acute kidney injury contrast-induced (12/2023)Hx of pulmonary embolus Protein calorie malnutrition Prolapsed lumbosacral intervertebral disc 04/23/2011 Acute [place] x3 Surgical History Hx of cataract surgery History of carpal tunnel release H/O heart artery stent x 9, last in 2017 History of spinal fusion x3 Social History/Home Situation: lives with in a priavte home with no steps to enter. Modified independent with all mobility ADLs using SPC. Equipment Owned/DME: SPC Subjective: 01/16 in the Objective: General Observation: Seated at edge of bed. Dressing to L foot. Post-op shoes to B sides. Mental Status: Alert and oriented as to person, place, time, and purpose. Able to pay attention, focus, and respond appropriately. Pain: 6-01/16 Vital Signs: Closely monitored by nursing staff ROM: Left Lower Extremity: Hip flexion WFL. Hip abduction WFL. Knee flexion WFL. Ankle dorsiflexion NT. Ankle plantarflexion NT. Strength: Left Lower Extremity: Hip flexors 4/5. Hip abductors 4/5. Knee flexors 5/5. Knee extensors 4/5. Ankle dorsiflexors NT. Ankle plantarflexors NT. Bed Mobility/Transfers: Rolling independent Supine to sit independent Sit to supine independent Sit to stand independent Stand to sit independent Gait: Able to negotiate level surfaces with NWB through the L LE using FWW and post-op shoes for up to 50 feet with stand by assist. Needed moderate cueing to stay compliant with WB precaution. Balance: Static Sitting: Normal Dynamic Sitting: Normal Static Standing: Fair Dynamic Standing: Fair Special Tests: Mobility Limitations Standardized Measure [facility] AM-PAC 6 clicks Basic Mobility Inpatient Short Form: Raw Score: 23 CMS Score: 11% deficit Informed Consent/Education: Patient was instructed in purpose of PT consult and plan of care. Agreeable to proceed with established PT POC to achieve personal goals. Assessment: Was fitted with FWW. Patient was provided with brand new front-wheeled walker for discharge to home. Patient presents with clinical signs and symptoms consistent with current/admitting diagnoses that have resulted to mobility limitations, gait instability, generalized weakness, and overall ADL decline as demonstrated by the following impairment level findings: 1. Decreased strength to L leg and ankle major muscle groups 2. Impaired sitting/standing balance 3. Impaired activity tolerance 4. Limitation of joint range of motion in L ankle 5. Pain in L ankle at 8/10 Impairments are contributing to the following functional limitations: 1. Difficulty with ambulation without assistive device 2. Increased completion time for mobility ADL performance 3. Increased risk for falls 4. Difficulty with managing steps alone safely Patient is assessed as a 78140 low complexity based on the following: History: 53-year-old male with past medical history as indicated above Examination: Demonstrable impairment in strength, balance, and mobility level with underlying impairments and functional limitations as exhibited above as well as deficit score of 11% utilizing the [facility] Mobility Inpatient Short Form Presentation: Evolving Decision Makin low complexity Goals: Goals X1 week 1. Supine-Sit independent 2. Sit-Supine independent 3. Sit-Stand independent 4. Stand-Sit independent with FWW 5. Bed-Chair independent with FWW 6. Chair-Bed independent with FWW 7. Independent gait on level surface with use of FWW for at least 150 feet without report of pain nor dyspnea 8. Independent with home exercise program Plan of Care/Treatment Plan: 1-2x/day, 7 days/week x 1 week. Please review B LE exercises to hips, knees and R ankles, do every 2-3 hours during the day. Emphasize NWB on the L LE at all times using FWW. Plan of care has been reviewed with the SENIOR CONSULTING MANAGER providing the service under Physical Therapy direction. Initiate Physical Therapy intervention for pain management as needed, strengthening, bed mobility, transfers, gait, stairs, balance training, and use of assistive device. DISCHARGE RECOMMENDATIONS: [] Home with no services [] [X] Home with services. Patient will benefit from home health PT services in order to progress mobility level using FWW, assess home safety, identify additional equipment needs, and establish a functional maintenance program that will increase ability of patient to remain at home. [] Home with outpatient PT [] [] SNF for continued rehabilitation [] [] Penitentiary Care [] [] SNF versus LTC based on ability to participate and progress [] TREATMENT CODE/TIME: 49859 x 20 minutes for 1 unit (9:14?9:34). Thank you for the opportunity to participate in the care of this patient. Tanesha Jaime PT, DPT, CLT [facility] [place], [place]
--- NOTE | 2024-05-21 11:04 | PHA.REVIEW2 ---
Pharmacy Admission Review Admission Clinical Review Admission Pharmacy Review: Contraindication to deep vein thrombosis (DVT) prophylaxis (Acute) Acute kidney injury superimposed on CKD (Acute) Acute osteomyelitis of left calcaneus (Acute) Tobacco dependence (Acute) Heart failure with reduced ejection fraction (Acute) Hyperglycemia due to type 2 diabetes mellitus (Acute) codeine Allergy (Verified 05/20/24 15:16) rash, cortisone Allergy (Verified 05/20/24 15:16) urticaria Resuscitation Status Full Code Height 5 ft 8 in Weight 71.5 kg Pharmacy Admission Review Renal Dosing Renal Dosing: BUN 59 mg/dL (7-18) H 05/21/24 06:05 Creatinine 2.7 mg/dL (0.70-1.30) H 05/21/24 06:05 Medications needing adjustments: Reviewed (CrCl 31 mL/min) List of meds needing interventions: Current medications are okay Anticoagulation Anticoagulation: Hgb 10.6 g/dL (13.5-17.5) L 05/21/24 06:05 Hct 32.0 % (40.0-50.0) L 05/21/24 06:05 Plt Count 302 10^3/uL (130-400) 05/21/24 06:05 Creatinine 2.7 mg/dL (0.70-1.30) H 05/21/24 06:05 DVT Prophylaxis: Intervened (Spoke with provider as no order had been put in and patient has Eliquis 5mg on home med list. Provider looked into it and then put in an order.) Medications: Apixaban (5mg PO BID) Opiate Usage Evaluate Pain Scale/Pains Meds: Reviewed (hydrocodone/APAP [id number] BID PRN - 1 dose given this AM for pain of 01/16 - home med for chronic leg pain per nurse) Scheduled Bowel Reg ordered if on Opiates?: No Relevant Labs Relevant Labs: ESR 72 mm/hr (0-20) H 05/21/24 06:05 Sodium 140 mmol/L (136-145) 05/21/24 06:05 Potassium 4.4 mmol/L (3.5-5.1) 05/21/24 06:05 Chloride 105 mmol/L (98-107) 05/21/24 06:05 C-Reactive Protein 5.99 mg/dL (<or=0.5) H 05/21/24 06:05 Electrolytes, C-Reactive P, ESR: Reviewed DM Control DM Control: Glucose 49 mg/dL (74-106) L* 05/21/24 06:05 Finger Stick Blood Glucose 83 0755 Finger Stick Blood Glucose 83 0755 Finger Stick Blood Glucose 96 0730 Finger Stick Blood Glucose 96 0728 Finger Stick Blood Glucose 96 0714 Finger Stick Blood Glucose 96 0714 DM Control: Reviewed Insulin Dosing, Diabetic Medication: Has order for SS insulin, Jardiance and glucose 38 units qPM and 56 units qAM. Per nurse patient had glass of cranberry juice after morning glucose level of 49, level was then repeated and level was WNL. Cardiac Review Cardiac Review: Blood Pressure 114/58 0722 Blood Pressure 106/57 0320 BP, HR, EF%: Reviewed (HR WNL) List meds needing interventions: Has order for furosemide 20mg daily PRN (on hold) and Entresto 24/26 mg PO BID. QTc Review QTc: Reviewed (No EKG on file) IV to PO Switch IV Medications: Reviewed (cefazolin) Home Meds Home Med List reviewed: Intervened Relevent Home Meds Not ordered & why?: Pepto (PRN) and glucagon (PRN) No order had been put in for patients Eliquis (see anticoagulation section) Current Meds Current Medication Order Review: Reviewed Pharmacy Antibiotic Review Relevant Labs: Relevant Labs 05/21/24 06:05 C-Reactive Protein 5.99 H WBC 11.63 10^3/uL (4.4-10.8) H 05/21/24 06:05 Temperature 36.1 C Temperature 36.7 C Comments: Patient is on cefazolin 2g q8h, day 2, for cellulitis of left heel. Blood cultures are currently pending. Per provider patient will require prolonged IV antibiotic therapy.
[2024-05-21 11:35] VITALS: BP 98/58; PULSE 66; RESP 14; TEMP 36.6; O2SAT 99
[2024-05-21] MEDS: Insulin Aspart 300 UNITS/3 ML PEN SC (11:49)
--- NOTE | 2024-05-21 14:00 | CHAPLAIN ---
Sulaiman was up in the chair, dressed in his own clothes when I visited. He is from [place] and was sent to the ED by the podiatry office. He said he's fine and in touch with family. He seems to be comfortable being here, but not really interested in further converation.
[2024-05-21 14:38] VITALS: BP 111/66; PULSE 65; RESP 16; TEMP 36.8; O2SAT 98
--- NOTE | 2024-05-21 16:02 | PTTR_ITS ---
PT Notes Visit Reasons: Cellulitis, Left heel infected ulcer, JESSICA ON CKD Date: 05/21/2024 PRECAUTIONS: Fall. Standard. NWB through L LE. SUBJECTIVE: pt in recliner when approached for therapy this afternoon, agreed to participating with therapy session. OBJECTIVE: ? PAIN: left foot VITALS: monitored by nursing? Therapeutic procedures 39597 mins: Instruction in therapeutic exercises to develop strength and endurance, range of motion and flexibility. HEP instruction and performed: Provided skilled instruction in proper exercise performance: Provided skilled manual cues to facilitate proper muscle recruitment and/or movement pattern: ? Access Code: [email or web address] URL: [email or web address] Date: 05/21/2024 Prepared by: Rian Jaime Exercises - Supine Gluteal Sets - 1 x daily - 7 x weekly - 3 sets - 10 reps - Supine Quad Set - 1 x daily - 7 x weekly - 3 sets - 10 reps - Supine Ankle Pumps - 1 x daily - 7 x weekly - 3 sets - 10 reps - Supine Heel Slides - 1 x daily - 7 x weekly - 3 sets - 10 reps - Seated Long Arc Quad - 1 x daily - 7 x weekly - 3 sets - 10 reps - Seated March - 1 x daily - 7 x weekly - 3 sets - 10 reps? Sit to stand from recliner 5x1set Gait training with FWW 10'x2 (hopping) ASSESSMENT:?Emphasis on maintaining NWB status on left LE during sit to stand and short distance ambulation. PLAN: Continue with balance training, global strengthening and general conditioning for improved safety, mobility and activity tolerance until pt is ready for DC. TREATMENT CODE/TIME: [id number] 15mins (3:50-4:05pm)
--- NOTE | 2024-05-21 16:18 | W.PM.PROGNOT ---
Date of Service Date of service: 05/21/24 Time of Service: 16:18 Assessment and Plan Assessment and plan (1) Acute osteomyelitis of left calcaneus: Status: Acute Assessment and plan: Continue ancef 2 g IV every 8 hours Foam border dsg daily to the right heel CTA with runoff if renal function improves Consider discharging home when WBC normalizes Follow-up already scheduled with Dr. Lara on Friday (2) Tobacco dependence: Status: Acute Assessment and plan: Nicotine patch ordered (3) Acute kidney injury superimposed on CKD: Status: Acute Assessment and plan: Cr 2.7 Patient has a history of HFrEF with LVEF 35% (4) Heart failure with reduced ejection fraction: Status: Acute Assessment and plan: Last echo showed an LVEF of 35% on December 14, 2023 On guideline directed medical therapy at home patient (5) Hyperglycemia due to type 2 diabetes mellitus: Status: Acute Assessment and plan: Fingerstick ACHS with basal bolus insulin and SSI coverage (6) Contraindication to deep vein thrombosis (DVT) prophylaxis: Status: Acute Assessment and plan: Continue home dose of Apixaban Discussed care Rasmert Subjective Subjective Patient reports: no new complaints, feels better, tolerating liquids well, tolerating a regular diet, voiding w/o difficulty and afebrile; denies diarrhea, nausea or vomiting Exam Narrative Exam Narrative: GEN: Alert and oriented x 4, pleasant and cooperative, gives linear history. No acute distress at rest. HEENT: Head atraumatic. Conjunctiva clear, no icterus. PEERL, EOMI. no rhinorrhea. MMM, Neck is supple with no masses or lymphadenopathy, trachea midline LUNGS: CTAB with normal effort CV: RRR with no murmurs, gallops, or rubs. ABD: active bowel sounds, soft, nontender and nondistended. No masses. EXT: no cyanosis, clubbing. Trace to 1+ edema sierra shins down. Toes are warm with cap refill < 2 seconds, BLE pulses present, MSK: No joint redness or swelling NEURO: CN 2-12 grossly intact. Normal movement of 4 extremities. Normal speech and coordination. No tremor SKIN: No rashes. Two open wounds on sierra heels. Full thickness ulcer left heel with osteomyelitis to the calcaneus, Full-thickness ulcer with acute osteomyelitis, right heel PSYCH: normal mood and affect Psych Mental Status: mental status grossly normal Speech and Movement: speech and movement normal Mood: congruent mood Affect: normal affect Objective Last Vital Signs Temp 36.8 C 05/21/24 14:38 Pulse 65 05/21/24 14:38 Resp 16 05/21/24 14:38 BP 111/66 05/21/24 14:38 Pulse Ox 98 05/21/24 14:38 Laboratory Results - last 24 hr 05/21/24 06:05 WBC 11.63 H RBC 3.54 L Hgb 10.6 L Hct 32.0 L MCV 90 MCH 29.9 MCHC 33.1 RDW 14.9 H Plt Count 302 MPV 11.2 H Immature Gran % 0.3 Neutrophils % 72.6 Lymphocytes % 16.5 Monocytes % 7.4 Eosinophils % 2.3 Basophils % 0.9 Nucleated RBC % 0.0 Absolute Neutrophils 8.44 H Absolute Lymphocytes 1.92 Absolute Monocytes 0.86 H Absolute Eosinophils 0.27 Absolute Basophils 0.10 ESR 72 H Sodium 140 Potassium 4.4 Chloride 105 Carbon Dioxide 28.2 Anion Gap 6.8 BUN 59 H Creatinine 2.7 H Est GFR (CKD-EPI 2020) 26.99 Glucose 49 L* Calcium 8.7 C-Reactive Protein 5.99 H Time Spent with Patient Time Spent with Patient: 25-34 minutes Time was spent: preparing to see the patient(eg.review tests), ordering medications,tests, procedures, referring, communicating with other health care program resident, indepentently interpreting results, counseling the patient and care coordination
[2024-05-21 19:19] VITALS: BP 105/61; PULSE 66; RESP 20; TEMP 36.6; O2SAT 98
[2024-05-21] MEDS: Mirtazapine 15 MG TAB 7.5 MG PO (20:12)
[2024-05-21] MEDS: Apixaban 5 MG TAB PO (20:12)
[2024-05-21] MEDS: Sacubitril/Valsartan 24 mg/26 mg TAB 1 EACH PO (20:12)
[2024-05-21 22:43] VITALS: BP 90/57; PULSE 65; RESP 18; TEMP 36.4; O2SAT 97
[2024-05-21] MEDS: Loperamide 2 MG CAP PO (22:47)
[2024-05-21] MEDS: Acetaminophen 500 MG TAB 1000 MG PO (22:51)
[2024-05-22 02:50] VITALS: BP 92/53; PULSE 59; RESP 17; TEMP 36.6; O2SAT 98
[2024-05-22] MEDS: Normal Saline Flush 10 ML SYR IVP ×3 (06:05→13:43)
[2024-05-22] MEDS: ceFAZolin 2 GM/50 ML BAG IV ×2 (06:05→13:42)
[2024-05-22 06:55] LABS: Abs Immature Grans 0.02 10^3/uL (0.0-0.06); Absolute Eosinophil Count 0.24 10^3/uL (0.0-0.7); Absolute Lymphocyte Count 2.41 10^3/uL (1.2-3.4); Absolute Monocyte Count 0.63 10^3/uL (0.1-0.8); Absolute Neutrophil Count 5.11 10^3/uL (1.2-6.7); Basophils % 1.2 %; Eosinophils % 2.8 %; HCT 31.2 % (40.0-50.0); HGB 9.9 g/dL (13.5-17.5); Immature Grans % 0.2 %; Lymphocytes % 28.3 %; MCH 29.6 pg (27.0-33.0); MCHC 31.7 % (32.0-36.0); MCV 93 fL (80-95); MPV 10.9 fL (8.0-11.0); Monocytes % 7.4 %; Neutrophils % 60.1 %; Platelet Count 304 10^3/uL (130-400); RBC 3.35 10^6/uL (4.36-5.78); RDW 14.7 % (11.8-14.1); WBC 8.51 10^3/uL (4.4-10.8)
[2024-05-22 07:04] LABS: BUN 57 mg/dL (7-18); CREATININE 2.3 mg/dL (0.70-1.30); Calcium 8.7 mg/dL (8.5-10.1); Chloride 105 mmol/L (98-107); Estimated GFR 32.71 (mL/min/1.73m2); Glucose 81 mg/dL (74-106); Potassium 4.5 mmol/L (3.5-5.1); Sodium 141 mmol/L (136-145)
[2024-05-22 07:49] VITALS: BP 105/61; PULSE 62; RESP 18; TEMP 36.3; O2SAT 98
[2024-05-22] MEDS: HYDROcodone 5/Acetaminophen 325 TAB PO (08:36)
[2024-05-22] MEDS: Atorvastatin 40 MG TAB 80 MG PO (08:36)
[2024-05-22] MEDS: Pantoprazole 40 MG TABCR PO (08:36)
[2024-05-22] MEDS: Empaglifozin 10 MG TAB PO (08:36)
[2024-05-22] MEDS: Aspirin E.C. 81 MG TABEC PO (08:36)
[2024-05-22] MEDS: Sacubitril/Valsartan 24 mg/26 mg TAB 1 EACH PO (08:36)
[2024-05-22] MEDS: Apixaban 5 MG TAB PO (08:36)
[2024-05-22] MEDS: Insulin Glargine 300 UNITS/3 ML PEN 56 UNITS SC (08:38)
[2024-05-22] MEDS: Nicotine 14 MG/24 HR PATCH TD (08:38)
[2024-05-22 11:05] VITALS: BP 97/60; PULSE 61; RESP 20; TEMP 36.3; O2SAT 100
[2024-05-22] MEDS: Acetaminophen 500 MG TAB 1000 MG PO (11:07)
[2024-05-22] MEDS: Insulin Aspart 300 UNITS/3 ML PEN SC (12:11)
--- NOTE | 2024-05-22 13:55 | PDOC.CMDIS ---
Date of service: 05/22/24 Time of Service: 13:55 LACE Index Scoring Tool Questions: Length of Stay (in days): 2 Was the patient admitted via the E.D.?: Yes Comorbidities: Previous M.I. E.D. Visits: 1 Answers: Total Score: 7 Risk of Readmission: Low Risk Care Management Discharge Plan Reason for Hospitalization: Cellulites, heel infection Discharge Plan: Discharge home with a resumption of O/E VNA RN for wound care. Transportation will via private vehicle with family. Follow up with community providers and discharge plan of care as instructed. Outpatient IV ABX therapy is coordinated by ANNE through [facility] in [place], RN [employer]ing Unit Operator at [facility] will call Garett directly to scheduled an appointment for tomorrow. Patient/Family Education Needs: Review discharge instructions, limitations, medications and plan to follow up with community providers. Discuss ask me three. Services Needed at Discharge: Home Health Care Services (O/E VNA care aide) and Infusion Therapy (infusions coordinated with Janet at [facility]. Will begin tomorrow. ) SDOH Health Related Social Needs: Health related social needs food insecurity(Z59.41) Health related social needs: food insecurity(Z59.41)
--- NOTE | 2024-05-22 14:08 | PTTR_ITS ---
Date of service: 05/22/24 Time of Service: 11:40 PT Notes Visit Reasons: Cellulitis, Left heel infected ulcer, JESSICA ON CKD Inpatient Physical Therapy Treatment Note [facility] Date: 05/22/2024 PRECAUTIONS: Fall. Standard. NWB through L LE. SUBJECTIVE: Willing to perform ambulation and exercises program today. No increase in pain with PT activities. OBJECTIVE: ? PAIN: 6-7 out of 10 on 0-10 pain scale at time of treatment. Indicated it always hurts. Generally a 8 out of 10 prior to getting pain meds. Therapeutic procedures 13550 mins: Instruction in therapeutic exercises to develop strength and endurance, range of motion and flexibility. HEP instruction and performed: Provided skilled instruction in proper exercise performance Provided skilled manual cues to facilitate proper muscle recruitment and/or movement pattern ? Exercises- As per supervising PT's instructions, patient was advised to perform each exercise x 10 reps every 2 hours, to increase circulation. - Supine Gluteal Sets - 10 reps - Supine Quad Set - 10 reps - Supine Ankle Pumps, right only - 10 reps - Supine Heel Slides, right only - 10 reps - Seated Long Arc Quad - 10 reps - Seated March - 10 reps? Sit to stand from recliner x 8 reps Ambulation, NWB on the left, with FWW for 10ftx2 and 30ftx1, with CGA-SBA of one. No noted LOB. ASSESSMENT:?Continue to emphasize NWB status on left LE during sit to stand and short distance ambulation. PLAN: Continue with balance training, global strengthening and general condi tioning for improved safety, mobility and activity tolerance until ready for DC. TREATMENT CODE/TIME: [id number], 11:40 to 12:00 (20') ? ? ?
[2024-05-22 15:26] VITALS: BP 115/70; PULSE 58; RESP 20; TEMP 36.8; O2SAT 99
--- NOTE | 2024-05-22 15:30 | DI.RAD_ITS ---
Exam(s) XR PORTABLE CHEST AP EXAM: XR PORTABLE CHEST AP CLINICAL HISTORY: PICC placement. TECHNIQUE: 2D digital imaging was performed. COMPARISON: No exams were available for comparison FINDINGS: Single AP portable view. Heart size is upper normal. Left coronary artery stent noted. The mediastinum is not widened. There is mild elevation of the slightly thickened minor fissure on the right side, this implying some volume loss in the right upper lobe. No obvious mass. On the left side there is a vertically orien tated line which is probably a skin fold. There are lung markings peripheral to this and therefore d oes not represent pneumothorax. There is right-sided PICC line in place. Its distal tip is at the SVC-RA junction. IMPRESSION: Newly placed PICC line is in satisfactory position. Elevated right minor fissure implying some volume loss in the right upper lobe. No confluent infiltr ates evident. Coronary artery stent. Heart size upper normal. No pulmonary edema. DATA REPOSITORY: RADIATION DOSE DELIVERED:
--- NOTE | 2024-05-22 17:59 | DSE_ITS ---
Date of service: 05/22/24 Time of Service: 17:59 DS: Diagnosis Discharge Diagnosis (1) Acute osteomyelitis of left calcaneus: Status: Acute (2) Tobacco dependence: Status: Acute (3) Acute kidney injury superimposed on CKD: Status: Acute (4) Heart failure with reduced ejection fraction: Status: Acute (5) Hyperglycemia due to type 2 diabetes mellitus: Status: Acute (6) Contraindication to deep vein thrombosis (DVT) prophylaxis: Status: Acute Discharge Plan Disposition Patient Disposition: Home W/Home Health Services Condition: Improving Discharge Details Reason For Visit: Cellulitis, Left heel infected ulcer, JESSICA ON CKD Admit Date/Time: 05/20/24 15:01 Admit Provider: Ernst Ricci Attending Provider: Ernst Ricci Primary Care Provider: Marko Stevens Hospital Course Hospital Course: The patient presented to the emergency department on 05/17/2024, afebrile and without tachypnea. However, his systolic blood pressure was noted to be in the 90s. On arrival, he was assessed for ongoing issues related to a chronic left heel ulcer suspicious for osteomyelitis.Previously, Dr. Lara had recommended continued offloading and protection of the healed right heel ulcer. The left heel ulcer, however, remained a full-thickness lesion. A graft had been reapplied during an outpatient visit, and a wound VAC was discontinued with the intention to resume it once the patient?s white blood cell count normalized. * Diagnostic Workup: * Imaging: MRI revealed findings concerning for osteomyelitis versus bony edema, likely related to the biopsy performed on 05/17/2024. Subtle findings consistent with a stress fracture were also noted. * Laboratory Studies: * WBC: 21,000/mm? * ESR: 24 mm/hr * CRP: 7.16 mg/L * BUN: 48 mg/dL * Creatinine: 2.6 mg/dL (baseline: 1.4 mg/dL) * Clinical Assessment and Admission: The patient was admitted to the medical-surgical floor for evaluation and treatment of the following: * Acute kidney injury (JESSICA) on chronic kidney disease (CKD) * Suspected osteomyelitis of the left heel * Chronic left heel ulcer * IV antibiotic therapy initiation During his hospitalization, the patient denied symptoms of systemic infection, including fever, night sweats, chills, or constitutional symptoms. He also denied dizziness, headache, chest pain, cough, gastrointestinal, or genitourinary complaints. The patient confirmed his full code status upon admission. Management: * Infectious Disease: Empiric IV antibiotic therapy was initiated for suspected osteomyelitis. * Nephrology: JESSICA on CKD was managed with supportive measures, including optimization of hydration and monitoring renal function. * Wound Care: The left heel ulcer was monitored with appropriate dressings, offloading measures, and plans to resume wound VAC therapy once indicated. * Chronic Disease Management: Blood glucose levels were managed with insulin therapy, and HFrEF was monitored throughout hospitalization. Discharge Plan: The patient is discharged on a course of IV antibiotics with outpatient podiatry follow-up for continued management of osteomyelitis and chronic ulcer care. He is instructed to maintain offloading and to closely follow up with the podiatry and nephrology teams. Patient had a PICC line placed. Out patient IV therapy is set up with [facility]. Antibiotics Ceftriaxone 2gm every 24h x 6 weeks with weekly labs - results to PCP, and PICC line dressing changes. Cefazolin was recommended every 8h - not feasable on out patient bases; ceftriaxone will cover equally as well. Follow-up Appointments: * Podiatry: Wound evaluation and care continuation * Infectious Disease: Assessment of response to antibiotic therapy * Nephrology: Renal function monitoring and JESSICA management * Resumption of home health nursing for dressing changes (use orders in place prior to hospitalization per podiatry). Home Meds and New Rx's Prescriptions: Continued aspirin 81 mg tablet,delayed release (DR/EC) 81 mg PO DAILY atorvastatin 80 mg tablet 80 mg PO DAILY (DME) Hedgeable G7 Sensor Device See Rx Instructions .Route Rx Instructions: As directed fenofibrate 160 mg tablet 160 mg PO DAILY insulin aspart U-100 [Novolog FlexPen U-100 Insulin] 100 unit/mL (3 mL) insulin pen See Rx Instructions subcut TID Rx Instructions: subcutaneously three times a day; Eliquis 5 mg tablet 5 mg PO BID furosemide 20 mg tablet 20 mg PO DAILY PRN Gvoke HypoPen 1-Pack 0.5 mg/0.1 mL auto-injector 1 mg subcut ONCE Rx Instructions: as a single dose; may repeat once after 15 minutes if no response loperamide 2 mg capsule 2 mg PO Q4H PRN Rx Instructions: administer after each loose stool until symptoms controlled; do not exceed 8 mg per 24 hrs mirtazapine 7.5 mg tablet 7.5 mg PO QHS pantoprazole 40 mg tablet,delayed release (DR/EC) 40 mg PO DAILY torsemide 20 mg tablet 40 mg PO DAILY nutritional supplements Powder See Rx Instructions PO .QD 90 Days Qty: 30 2RF Rx Instructions: 1 packet with 8 oz of water orally QD; Placido - therapeutic nutrition powder for wound healing of chronic ulcers. Pt with low serum albumin levels. insulin glargine [Basaglar KwikPen U-100 Insulin] 100 unit/mL (3 mL) insulin pen 56 unit subcut QAM insulin glargine [Basaglar KwikPen U-100 Insulin] 100 unit/mL (3 mL) insulin pen 38 unit subcut QPM albuterol sulfate 90 mcg/actuation HFA aerosol inhaler 2 puff inhalation Q4H PRN haloperidol lactate 2 mg/mL concentrate 0.5 mg PO Q6H PRN Rx Instructions: 0.25-0.50 ml q6h N/v bismuth subsalicylate 525 mg/15 mL suspension 1,050 mg PO DAILY PRN Rx Instructions: for diarrhea acetaminophen 500 mg capsule 1,000 mg PO TID PRN hydrocodone-acetaminophen 5-325 mg tablet 1 tab PO BID PRN PRN Patient Comments: TAKE 1 TABLET BY MOUTH TWICE DAILY NEEDED FOR PAIN Jardiance 10 mg tablet 10 mg PO DAILY sacubitril-valsartan [Entresto] 24-26 mg tablet 1 tab PO BID Patient Comments: TAKE 1 TABLET BY MOUTH TWICE DAILY per patient just started for heart valve Discharge Instructions Instructions: Osteomyelitis in adults, Peripherally-Inserted Central Catheter (DC), Ceftriaxone Additional Instructions: Home health services to resume for wound care. Services have been set up with [facility] for IV administration of your antibiotic. They will take care of your PICC line dressings and weekly lab draws. Results with go to your PCP. Follow up with Dr Lara as scheduled. Continue home medications. Stand Alone Forms: Nursing Discharge Form Referrals: Danyelle Lara DPM [[facility] STAFF PHYSICIAN] - (Please call the office on Friday to schedule an appointment for a hospital follow up. ) Marko Stevens MD [Primary Care Provider] - (Post hospitalization for osteomyelitis: out patient IV therapy @ [facility] - Cef triaxone 2 gm every 24 h x 6 w ; Weekly labs. Dressing changes per podiatry. Home health nursing resumed. ) Activity:: Activity as Tolerated Equipment/Supplies:: No Equipment Needed Diet:: Diabetic Discharge Orders Discharge Orders: Discharge Order (Routine); Ordered 05/22/24 Ordered By: Viki James Discharge Data Discharge Date/Time-TO BE ENTERED AT DEPARTURE: 05/22/24 17:25 DS: Summary Time Spent with Patient providing and/or coordinating discharge services: Greater than 30 minutes Status at Discharge Functional status at discharge: uses cane/walker Overall status at discharge: patient is progressing back to baseline Mental Status: mental status grossly normal Speech and Movement: speech and movement normal Mood: congruent mood Affect: normal affect Quality:SDOH Health Related Social Needs: Health related social needs food insecurity(Z59.41) Exam Narrative Exam Narrative: GEN: Alert and oriented x 4, pleasant and cooperative, gives linear history. No acute distress at rest. HEENT: Head atraumatic. Conjunctiva clear, no icterus. PEERL, EOMI. no rhinorrhea. MMM, Neck is supple with no masses or lymphadenopathy, trachea midline LUNGS: CTAB with normal effort CV: RRR with no murmurs, gallops, or rubs. ABD: active bowel sounds, soft, nontender and nondistended. No masses. EXT: no cyanosis, clubbing. Trace to 1+ edema sierra shins down. Toes are warm with cap refill < 2 seconds, BLE pulses present, MSK: No joint redness or swelling NEURO: CN 2-12 grossly intact. Normal movement of 4 extremities. Normal speech and coordination. No tremor SKIN: No rashes. Two open wounds on sierra heels. Full thickness ulcer left heel with osteomyelitis to the calcaneus, Full-thickness ulcer with acute osteomyelitis, right heel PSYCH: normal mood and affect Psych Mental Status: mental status grossly normal Speech and Movement: speech and movement normal Mood: congruent mood Affect: normal affect DS: Data Vitals/I&O Vitals and I&O: Vital Signs Temperature 36.8 C 05/22/24 15:26 Temperature Source Temporal Artery Scan 05/22/24 15:26 Pulse 58 L 05/22/24 15:26 Pulse Rhythm Regular 05/20/24 15:56 Respiratory Rate 20 05/22/24 15:26 Respiratory Effort Normal, Non-Labored 05/20/24 15:56 Respiratory Depth Normal 05/20/24 15:56 Respiratory Pattern Normal 05/20/24 15:56 Blood Pressure 115/70 05/22/24 15:26 Blood Pressure Mean 67 05/20/24 14:27 Blood Pressure Position Sitting 05/20/24 14:27 Pulse Oximetry 99 05/22/24 15:26 Oxygen Delivery Method Room Air 05/22/24 15:26 Oxygen Flow Rate 0 05/22/24 15:26 Pain Level 7 05/22/24 15:26 Comment nurse notified 05/21/24 22:43 Intake & Output 05/21/24 05/22/24 05/22/24 23:59 11:59 23:59 Intake Total 562 / 752 250 / 250 Output Total 1000 / 0 700 / 700 Balance -438 / -1298 -450 / -450 Intake: IV 170 / 240 50 / 50 Oral 392 / 512 200 / 200 Output: Urine 1000 / 0 700 / 700 Other: Urine Color Yellow Yellow Urine Appearance Clear Urine Odor None None Comment Pt independently voided into hat. Data Completed and Pending Labs on day of discharge: Labs from last 24 hours 05/22/24 06:18 WBC 8.51 RBC 3.35 L Hgb 9.9 L Hct 31.2 L MCV 93 MCH 29.6 MCHC 31.7 L RDW 14.7 H Plt Count 304 MPV 10.9 Immature Gran % 0.2 Neutrophils % 60.1 Lymphocytes % 28.3 Monocytes % 7.4 Eosinophils % 2.8 Basophils % 1.2 Nucleated RBC % 0.0 Absolute Neutrophils 5.11 Absolute Lymphocytes 2.41 Absolute Monocytes 0.63 Absolute Eosinophils 0.24 Absolute Basophils 0.10 Sodium 141 Potassium 4.5 Chloride 105 Carbon Dioxide 30.0 Anion Gap 6.0 BUN 57 H Creatinine 2.3 H Est GFR (CKD-EPI 2020) 32.71 Glucose 81 Calcium 8.7 Magnesium 2.0 Preliminary micro results at discharge 05/20/24 13:40 Blood Culture - Preliminary Blood NO GROWTH 48 HOURS 05/20/24 13:46 Blood Culture - Preliminary Blood NO GROWTH 48 HOURS PFSH All Active Problems (Updated 05/20/24 @ 17:58 by Asya Winchester APRN) Contraindication to deep vein thrombosis (DVT) prophylaxis (Acute) Acute kidney injury superimposed on CKD (Acute) JESSICA (acute kidney injury) (Acute) Abscess of left foot excluding toes (Acute) Acute osteomyelitis of left calcaneus (Acute) Tobacco dependence (Acute) Chronic ulcer of left heel with fat layer exposed (Acute) Osteomyelitis of left ankle (Acute) Chronic kidney disease, stage 3a (Acute) Atherosclerotic PVD with ulceration (Acute) Ischemic ulcer of right heel (Acute) Ischemic ulcer of left heel (Acute) Ulcer of right heel (Acute) Ulcer of left heel (Acute) Heart failure with reduced ejection fraction (Acute) 35%; worsened moderate to severe regurg; mitral regurg worsened 12/2023 ([facility]) Mitral valve regurgitation (Chronic) Hyperglycemia due to type 2 diabetes mellitus (Acute) Diabetes (Chronic) 08/07/05 Smoker (Acute) Peripheral neuropathy (Acute) Chronic ulcer of right foot (Acute) Ulcer of right foot with fat layer exposed (Acute) Cellulitis (Acute) PVD (peripheral vascular disease) (Chronic) Osteomyelitis of right foot (Acute) Pain in left foot (Acute) Diabetic foot ulcer (Acute) Snoring (Acute) Nicotine dependence (Acute) Lumbosacral radiculopathy (Acute) Lumbar spondylosis (Acute) Hypertension (Chronic) Hyperlipidemia (Acute) Diabetic neuropathy (Acute) Depressive disorder (Chronic) Atherosclerosis of coronary artery (Acute) Medical History Acute kidney injury contrast-induced (12/2023) Hx of pulmonary embolus Protein calorie malnutrition Prolapsed lumbosacral intervertebral disc 04/23/2011 Acute LA x3 Surgical History Hx of cataract surgery History of carpal tunnel release H/O heart artery stent x 9, last in 2017 History of spinal fusion x3 Family History Sister Diabetes Amputation of lower limb Mother Diabetes Social History Smoking/Tobacco Use Status: Current every day Tobacco Type: cigarettes Smoking risk assessment performed?: Yes Alcohol Intake: never Drug use: Never Substance use type: does not use Housing: apartment Do you feel safe at home: Yes Do you feel safe in your relationship?: Yes Additional Social history: Lives with in [place]. Disabled. [place] . Time Spent with Patient Time Spent with Patient: 45-69 minutes Time was spent: preparing to see the patient(eg.review tests), ordering medications,tests, procedures, referring, communicating with other health primary care provider, indepentently interpreting results, counseling the patient and care coordination
== END 2024-05-22 17:25 | disposition home health service (06) | DRG 540 ==
LOC: ER 15:41 → MS 15:47
PROVIDERS: Nurse Practitioner Acute Care; Nurse Practitioner Family; Admitting Provider Family Medicine; Emergency Provider Emergency Medicine; PCP Family Medicine; Visit Provider Family Medicine
DX: M86.172 Other acute osteomyelitis, left ankle and foot (principal); I13.0 Hypertensive heart and chronic kidney disease with heart failure and stage 1 through stage 4 chronic kidney disease, or unspecified chronic kidney disease; I50.20 Unspecified systolic (congestive) heart failure; L97.422 Non-pressure chronic ulcer of left heel and midfoot with fat layer exposed; N17.9 Acute kidney failure, unspecified; E11.621 Type 2 diabetes mellitus with foot ulcer; F17.210 Nicotine dependence, cigarettes, uncomplicated; E11.22 Type 2 diabetes mellitus with diabetic chronic kidney disease; E11.65 Type 2 diabetes mellitus with hyperglycemia; N18.31 Chronic kidney disease, stage 3a; I70.244 Atherosclerosis of native arteries of left leg with ulceration of heel and midfoot; I34.0 Nonrheumatic mitral (valve) insufficiency; E11.42 Type 2 diabetes mellitus with diabetic polyneuropathy; M54.17 Radiculopathy, lumbosacral region; E78.5 Hyperlipidemia, unspecified; I25.10 Atherosclerotic heart disease of native coronary artery without angina pectoris; F32.A Depression, unspecified
CPT/HCPCS: 36573; 00123; 36415; 80048; 85652; 87040; 96365; 97530; 99285; 71045; 73650; 83605; 83735; 85025; 86140; 99223; 99231; 99239; J0690; J1815

== ENCOUNTER 2024-05-27 01:16 | Outpatient (CLI) | payer MEDICAID, SELFPAY ==
--- NOTE | 2024-05-27 07:30 | DI.RAD_ITS ---
Exam(s) XR FOOT LT COMPLETE EXAM: XR FOOT LT COMPLETE CLINICAL HISTORY: f/u osteomyelitis,abscess lt foot,chronic ulcer,m86.9,l97.422,m86.172,. TECHNIQUE: 2D digital imaging was performed of the left foot. Three images were obtained. AP, obli que and lateral views were obtained. COMPARISON: CR XR HEEL LT OS CALCIS from 05/20/2024 FINDINGS: BONES: No acute fracture is present. There is a new lucency seen in the cortex of the posterior proce ss of the calcaneus at the plantar surface. JOINTS: No dislocation present. Mild arthritic changes are seen in the foot. SOFT TISSUE: There is no soft tissue gas. IMPRESSION: On the plantar surface of the calcaneus there is a new lucency in the cortex of the posterior process . Given the patient's history, osteomyelitis should be considered. An MRI of the calcaneus without and with contrast should be considered for further evaluation. DATA REPOSITORY: RADIATION DOSE DELIVERED:
== END 2024-05-27 01:36 ==
LOC: DI 01:16
PROVIDERS: PCP Family Medicine; Visit Provider Podiatrist
DX: M86.172 Other acute osteomyelitis, left ankle and foot; L97.422 Non-pressure chronic ulcer of left heel and midfoot with fat layer exposed
CPT/HCPCS: 73630

== ENCOUNTER 2024-06-14 02:57 | Outpatient (CLI) | payer MEDICAID, SELFPAY ==
--- NOTE | 2024-06-14 07:15 | DI.RAD_ITS ---
Exam(s) XR HEEL LT OS CALCIS EXAM: XR HEEL LT OS CALCIS CLINICAL HISTORY: F/U Osteomyelitis. TECHNIQUE: 2D digital imaging was performed. Two images were obtained. COMPARISON: CR XR HEEL LT OS CALCIS from 05/20/2024 CR XR FOOT LT COMPLETE from 05/27/2024 FINDINGS: BONES: There is now an oblique fracture through the body of the calcaneus with extension into the sub talar joint. The fracture is comminuted and angulated. Destructive cortical changes are seen at the plantar surface of the posterior process of the calcaneus suspicious for osteomyelitis. There is an enthesophyte again seen at the posterior superior calcaneus. The posterior process of the calcaneus has a mottled appearance. JOINTS: No dislocation present. SOFT TISSUE: There is a soft tissue defect at the plantar surface of the heel suspicious for an ulcer . There is soft tissue swelling of the hindfoot. IMPRESSION: 1. Destructive changes seen along the plantar surface of the posterior process of the calcaneus suspi cious for osteomyelitis. 2. Interval development of a fracture through the body of the calcaneus. The fracture is comminuted and angulated. 3. Soft tissue defect on the plantar surface of the heel suspicious for an ulcer. There is diffuse s oft tissue swelling of the hindfoot. DATA REPOSITORY: RADIATION DOSE DELIVERED:
== END 2024-06-14 03:17 ==
LOC: DI 02:57
PROVIDERS: PCP Family Medicine; Visit Provider Podiatrist
DX: M86.172 Other acute osteomyelitis, left ankle and foot (principal)
CPT/HCPCS: 73650

== ENCOUNTER 2024-06-14 13:38 | Outpatient (REF) | payer MEDICAID, SELFPAY | END 2024-06-14 13:39 | disposition home or self-care (01) | LOC: LBN 13:38 | PROVIDERS: PCP Podiatrist; Visit Provider Podiatrist | DX: L97.529 Non-pressure chronic ulcer of other part of left foot with unspecified severity (principal); Z51.89 Encounter for other specified aftercare; Z09 Encounter for follow-up examination after completed treatment for conditions other than malignant neoplasm; Z98.890 Other specified postprocedural states; M86.9 Osteomyelitis, unspecified; L97.429 Non-pressure chronic ulcer of left heel and midfoot with unspecified severity; L97.419 Non-pressure chronic ulcer of right heel and midfoot with unspecified severity; M79.672 Pain in left foot; E11.621 Type 2 diabetes mellitus with foot ulcer; I73.9 Peripheral vascular disease, unspecified; L03.90 Cellulitis, unspecified; G62.9 Polyneuropathy, unspecified; F17.200 Nicotine dependence, unspecified, uncomplicated; M86.172 Other acute osteomyelitis, left ankle and foot | CPT/HCPCS: 87070; 87075; 87205 ==